=== PATIENT | female | born 1965 | race African-American/Black ===

== ENCOUNTER 2016-07-28 17:16 | Inpatient (IN) | payer SELFPAY ==
[2016-07-28] MEDS ORDERED: DUONEB 0.5 MG/3 MG ONE (17:40)
[2016-07-28] MEDS ORDERED: CATAPRES TAB 0.2 MG ONE (17:44)
[2016-07-28] MEDS ORDERED: DUONEB 0.5 MG/3 MG NEB ONE (17:47)
[2016-07-28] MEDS ORDERED: CATAPRES TAB 0.2 MG PO ONE (17:55)
--- NOTE | 2016-07-28 18:00 | DR.SOBA ---
HPI - Time Seen Time seen: 18:00 - Primary Care Physician Primary Care Physician: JANNIE IN [facility] - HPI Comment HPI Comment: PATIENT STOP TAKING MED FOR HYPERTENSION AND LASIX FOR SEVERAL MONTHS. SHE HAS PROGRESSIVELY BECOME SOB, WEAK AND SWOLLEN. NO FEVER. TODAY, SHE COULD NOT BREATH. - Complaints Chief Complaint Doctors Comments: INCREASING SOB AND LOWER EXTREMITY EDEMA TIMES 2 DAYS. Chief Complaint:: PT C/O SOB AND SWELLING OF HER EXT,,,,, FOR 2 DAYS AND PT THOUGHT IT WOULD GO AWAY AND I AM WEAK AND I GO TO SLEEP EASILY.. Self Treatment fo Chief Complaint: PT HAS A NON-PRODUCTIVE COUGH - Reviewed Nurses Notes Reviewed: Yes - Source History Provided: Patient - Mode of Arrival Mode of Arrival: Ambulatory - Timing Onset of Chief Complaint: 07/25/16 - Duration Duration: Days - Context Onset:: At Rest PE Risk Factors:: None History of:: CHF Currently on:: Neither Prehospital Care:: None - Modifying Factors Worsens:: Exertion Improves:: Nothing - Associated Signs and Symptoms Associated Signs and Symptoms: Wheeze, Cough, Chest Pain, Leg Swelling - If Chest Pain Quality: Pleuritic, Other (TIGHTNESS) Location: Right Lower Chest, Left Lower Chest - If Cough Cough: Productive, Yellow PMH - PMH Past Medical History: No Past Surgical History: No - Family History History of Family Medical Conditions: No - Social History Does patient currently use any type of tobacco product: Yes Have you used tobacco products in the last 12 months: Yes Type of Tobacco Use: Cigarettes How many years tobacco product used: 1 Does any household member use tobacco: No Alcohol Use: None Do you use any recreational Drugs:: No Lives With: Family Lives Where: Home - infectious screening In the last 2 months have you had wt loss of >10#?: NO Have you had fever, night sweats or hemotysis?: No Have you traveled outside the country in the last 6 months?: No Isolation: Standard ROS - Review of Systems Constitutional: Weakness, Fatigue. negative: Chills, Fever, Loss of Appetite Eyes: No Symptoms Reported. negative: Eye Pain, Discharge ENTM: Nose Congestion. negative: Ear Pain, Nose Discharge, Throat Pain Respiratoy: Productive Cough, Short of Breath, Wheezing. negative: Hemoptysis Cardiovascular: Chest Pain, Edema, Palpitations. negative: Syncope Gastrointestinal/Abdominal: Nausea. negative: Abdominal Pain, Constipation, Diarrhea, Vomiting Genitourinary: No Symptoms Reported. negative: Dysuria, Frequency, Hematuria Neurological: Headache, Weakness. negative: Dizziness Musculoskeletal: Back Pain, Muscle Pain, Leg Integumentary: negative: Wound, Juandice Hematologic/Lymphatic: No Symptoms Reported Endocrine: No Symptoms Reported All Other Systems: Reviewed and Negative PE - Vital Signs Vitals: Temperature 97.9 F Pulse Rate 99 Respiratory Rate 22 Blood Pressure 259/158 O2 Sat by Pulse Oximetry 77 - General Limitations: No Limitations General Appearance: Alert - Head Head Exam: Normal Inspection - Eyes Eye exam: PERRL, EOMI. negative: Scleral Icterus, Conjunctival Injection - ENT ENT Exam: Normal External Ear Exam - Neck Neck Exam: Trachea Midline. negative: Tenderness, Meningismus, Lymphadenopathy - Chest Chest Inspection: Symmetric Chest Wall Rise - Respiratory Respiratory Exam: Normal Lung Sounds Bilat, Accessory Muscle Use, Prolonged Expiratory Phase, Respiratory Distress Respiratory Exam: Bilateral Wheezing, Bilateral Rhonchi, Bilateral Crackles, Upper Wheezing, Upper Rhonchi, Lower Wheezing, Lower Rhonchi, Lower Crackles - Cardiovascular Cardiovascular Exam: Regular Rate, Normal Rhythm, Normal Heart Sounds - Abdominal Exam Abdominal Exam: Normal Bowel Sounds, Soft. negative: Tenderness - Extremities Extremities Exam: Edema - Back Back Exam: Normal Inspection - Neurologic Neurological Exam: Alert, Oriented X3 - Psychiatric Psychiatric Exam: Anxious - Skin Skin Exam: Normal Color MDM - Differential Diagnosis Differential Diagnosis: Bronchitis, CHF, COPD, Hypertensive Emergency, Mycardial Infarction, Pneumonia, Pneumothorax, Pulmonary embolism, Respiratory Failure, Sinusitis, URI Differential Diagnosis Comment:: PNEUMONIA, CHF, COPD EXACERBATION Course - Treatment Treatment: SEE ORDERS. - Consultation Consultation Comments: DISCUSS PATIENT WITH DR. WILEY. HE WILL ADMIT PATIENT. - Education/Counseling Education/Counseling: Patient, Education Educated On: Diagnosis, Needs for Follow Up ROR - Labs Reviewed Laboratory Results Reviewed?: Yes Result Diagrams: 07/28/16 17:50 07/28/16 17:50 Laboratory: WBC 9.9 X10^3/uL (3.6-10.0) 07/28/16 17:50 RBC 3.54 X10^6/uL (3.5-5.4) 07/28/16 17:50 Hgb 10.1 g/dL (12.0-16.0) L 07/28/16 17:50 Hct 31.6 % (36.0-47.0) L 07/28/16 17:50 MCV 89.4 fL (80.0-100.0) 07/28/16 17:50 MCH 28.4 pg (27.0-34.0) 07/28/16 17:50 MCHC 31.8 g/dL (33.0-35.0) L 07/28/16 17:50 RDW 16.4 % (11.6-16.5) 07/28/16 17:50 Plt Count 186 X10^3/uL (150.0-450.0) 07/28/16 17:50 MPV 8.1 fL (7.4-11.0) 07/28/16 17:50 Neut % 66.8 % (42.0-75.0) 07/28/16 17:50 Lymph % 21.9 % (21.0-51.0) 07/28/16 17:50 [place] % 4.4 % (0.0-13.0) 07/28/16 17:50 Eos % 6.0 % (0.9-2.9) H 07/28/16 17:50 Baso % 0.9 % (0.2-1.0) 07/28/16 17:50 Neut # 6.6 x10^3/uL (2.2-4.8) H 07/28/16 17:50 Lymph # 2.2 X10^3/uL (1.3-2.9) 07/28/16 17:50 [place] # 0.4 x10^3/uL (0.3-0.8) 07/28/16 17:50 Eos # 0.6 x10^3/uL (0.0-0.2) H 07/28/16 17:50 Baso # 0.1 X10^3/uL (0.0-0.1) 07/28/16 17:50 Absolute Nucleated RBC 0.0 /100WBC 07/28/16 17:50 Sample Site Lr 07/28/16 18:09 ABG pH 7.350 (7.35-7.45) 07/28/16 18:09 ABG pCO2 46.0 mmHg (35.0-45.0) H 07/28/16 18:09 ABG pO2 71.0 mmHg (80.0-100.0) L 07/28/16 18:09 ABG HCO3 25.4 mmol/L (22-26) 07/28/16 18:09 ABG O2 Saturation 93.0 % (90-100) 07/28/16 18:09 ABG Base Excess -0.6 mmol/L (-2.0-2.0) 07/28/16 18:09 Kemal Test Pos 07/28/16 18:09 A-a Gradient 228.0 mmHg 07/28/16 18:09 FiO2 50.000 07/28/16 18:09 Blood Gas Comments Pt stephanie well. cdn 07/28/16 18:09 Sodium 143 mmol/L (136-145) 07/28/16 17:50 Corrected Sodium TNP 07/28/16 17:50 Potassium 4.0 mmol/L (3.5-5.1) 07/28/16 17:50 Chloride 108 mmol/L (98-107) H 07/28/16 17:50 Carbon Dioxide 27.2 mmol/L (21-32) 07/28/16 17:50 BUN 38 mg/dL (7-18) H 07/28/16 17:50 Creatinine 3.12 mg/dL (0.55-1.02) H 07/28/16 17:50 Est GFR (MDRD) Af Amer 20 (>60) L 07/28/16 17:50 Est GFR (MDRD) Non-Af 17 (>60) L 07/28/16 17:50 Glucose 93 mg/dL (65-99) 07/28/16 17:50 Calcium 8.9 mg/dL (8.5-10.1) 07/28/16 17:50 Corrected Calcium TNP 07/28/16 17:50 Total Bilirubin 0.50 mg/dL (0.2-1.0) 07/28/16 17:50 AST 55 Units/L (15-37) H 07/28/16 17:50 ALT 85 Units/L (12-78) H 07/28/16 17:50 Alkaline Phosphatase 82 Units/L (46-116) 07/28/16 17:50 Creatine Kinase 221 Units/L (26-192) H 07/28/16 17:50 CK-MB (CK-2) 2.8 ng/mL (0-4.0) 07/28/16 17:50 CK/CKMB % Calc 1.3 % (<4) 07/28/16 17:50 Troponin I 0.05 ng/mL (0-1.5) 07/28/16 17:50 B-Natriuretic Peptide 779 pg/mL (0-79) H* 07/28/16 17:50 Total Protein 7.5 g/dL (6.4-8.2) 07/28/16 17:50 Albumin 3.4 g/dL (3.4-5.0) 07/28/16 17:50 Globulin 4.1 g/dL (2.5-4.5) 07/28/16 17:50 Albumin/Globulin Ratio 0.8 Ratio (1.1-2.1) L 07/28/16 17:50 - XRAY XRAY Interpreted by: Radiologist XRAY Findings: REPORT DISCUSS WITH PATIENTS. - EKG Rhythm: NSR (EKG NOTED.) - Diagnosis Discharge Problem: Hypertensive crisis without congestive heart failure, Respiratory distress, Renal insufficiency - Discharge Plan Disposition: ADMITTED INPATIENT Condition: Stable - Follow ups/Referrals Follow ups/Referrals: NFD,None [Primary Care Provider] - 3 days - Instructions
[2016-07-28 18:07] LABS: BASOPHILS # (AUTO) 0.1 X10^3/uL (0.0-0.1); BASOPHILS % (AUTO) 0.9 % (0.2-1.0); EOSINOPHILS # (AUTO) 0.6 x10^3/uL (0.0-0.2); HEMATOCRIT 31.6 % (36.0-47.0); HEMOGLOBIN 10.1 g/dL (12.0-16.0); LYMPHOCYTES # (AUTO) 2.2 X10^3/uL (1.3-2.9); LYMPHOCYTES % (AUTO) 21.9 % (21.0-51.0); MEAN CORPUSCULAR HEMOGLOBIN 28.4 pg (27.0-34.0); MEAN CORPUSCULAR HGB CONC 31.8 g/dL (33.0-35.0); MEAN CORPUSCULAR VOLUME 89.4 fL (80.0-100.0); MEAN PLATELET VOLUME 8.1 fL (7.4-11.0); MONOCYTES # (AUTO) 0.4 x10^3/uL (0.3-0.8); MONOCYTES % (AUTO) 4.4 % (0.0-13.0); NEUTROPHILS # (AUTO) 6.6 x10^3/uL (2.2-4.8); NEUTROPHILS % (AUTO) 66.8 % (42.0-75.0); PLATELET COUNT 186 X10^3/uL (150.0-450.0); RED BLOOD COUNT 3.54 X10^6/uL (3.5-5.4); RED CELL DISTRIBUTION WIDTH 16.4 % (11.6-16.5); WHITE BLOOD COUNT 9.9 X10^3/uL (3.6-10.0)
[2016-07-28 18:12] LABS: ABG ALLEN TEST POS; ABG BASE EXCESS -0.6 mmol/L (-2.0-2.0); ABG HCO3 25.4 mmol/L (22-26)
[2016-07-28 18:20] LABS: BLOOD UREA NITROGEN 38 mg/dL (7-18); CALCIUM 8.9 mg/dL (8.5-10.1); CARBON DIOXIDE 27.2 mmol/L (21-32); CHLORIDE 108 mmol/L (98-107); CREATININE 3.12 mg/dL (0.55-1.02); GLUCOSE 93 mg/dL (65-99); SODIUM 143 mmol/L (136-145); TROPONIN I 0.05 ng/mL (0-1.5); eGFR BLACK RACES 20 (>60); eGFR NON BLACK RACES 17 (>60)
--- NOTE | 2016-07-28 18:20 | RAD ---
HISTORY: Shortness of breath Study: Chest one view Comparison: None available Findings: The heart is markedly enlarged. The janis are prominent and indistinct and the interstitium is promin ent. This is most consistent with congestive heart failure in the form of interstitial edema. No def inite alveolar edema, alveolar infiltrates, or pleural effusions are identified. Considering the con figuration of the heart a pericardial effusion could not be excluded. The bony thorax is unremarkabl e. IMPRESSION: Cardiomegaly with congestive heart failure The configuration of the heart suggests at least the possibility of a pericardial effusion. Reported By:
[2016-07-28 18:25] LABS: ALANINE AMINOTRANSFERASE 85 Units/L (12-78); ALBUMIN 3.4 g/dL (3.4-5.0); ALKALINE PHOSPHATASE 82 Units/L (46-116); ASPARTATE AMINO TRANSFERASE 55 Units/L (15-37); CKMB % 1.3 % (<4); CREATINE KINASE 221 Units/L (26-192); CREATINE KINASE MB 2.8 ng/mL (0-4.0); TOTAL PROTEIN 7.5 g/dL (6.4-8.2)
[2016-07-28] MEDS ORDERED: LASIX IVP ONE ×2 (18:27→18:31)
[2016-07-28 18:41] LABS: B-TYPE NATRIURETIC PEPTIDE 779 pg/mL (0-79)
[2016-07-28] MEDS ORDERED: NORMODYNE INJ 20 MG VIAL IVP ONE (19:11)
[2016-07-28] MEDS ORDERED: NS 250 ML IV 250 ML IV ONE (19:19)
[2016-07-28] MEDS ORDERED: NORMODYNE INJ 100 MG VIAL ONE ×2 (19:19→19:21)
[2016-07-28] MEDS ORDERED: NORMODYNE INJ 20 MG VIAL ONE (19:19)
[2016-07-28] MEDS: NORMODYNE INJ 100 MG VIAL 250 MG in NS 250 ML IV 200 ML IV PRN (19:31)
[2016-07-28] MEDS: DUONEB 0.5 MG/3 MG NEB SCH (21:29)
[2016-07-29 00:09] LABS: CKMB % 1.4 % (<4); CREATINE KINASE MB 2.4 ng/mL (0-4.0); TROPONIN I 0.05 ng/mL (0-1.5)
[2016-07-29 00:35] VITALS: BMI 32.1
[2016-07-29] MEDS ORDERED: PREVNAR 13 IM ONE ×2 (00:35→06:13)
[2016-07-29] MEDS: DUONEB 0.5 MG/3 MG NEB SCH ×6 (01:16→20:55)
[2016-07-29] MEDS: NORMODYNE INJ 100 MG VIAL 250 MG in NS 250 ML IV 200 ML IV PRN (02:21)
[2016-07-29 05:10] LABS: BASOPHILS # (AUTO) 0.1 X10^3/uL (0.0-0.1); BASOPHILS % (AUTO) 0.9 % (0.2-1.0); EOSINOPHILS # (AUTO) 0.4 x10^3/uL (0.0-0.2); EOSINOPHILS % (AUTO) 4.3 % (0.9-2.9); HEMATOCRIT 26.5 % (36.0-47.0); HEMOGLOBIN 8.6 g/dL (12.0-16.0); LYMPHOCYTES # (AUTO) 1.8 X10^3/uL (1.3-2.9); LYMPHOCYTES % (AUTO) 21.5 % (21.0-51.0); MEAN CORPUSCULAR HGB CONC 32.3 g/dL (33.0-35.0); MEAN CORPUSCULAR VOLUME 89.9 fL (80.0-100.0); MEAN PLATELET VOLUME 8.4 fL (7.4-11.0); MONOCYTES # (AUTO) 0.5 x10^3/uL (0.3-0.8); MONOCYTES % (AUTO) 6.5 % (0.0-13.0); NEUTROPHILS # (AUTO) 5.6 x10^3/uL (2.2-4.8); NEUTROPHILS % (AUTO) 66.8 % (42.0-75.0); PLATELET COUNT 161 X10^3/uL (150.0-450.0); RED BLOOD COUNT 2.95 X10^6/uL (3.5-5.4); RED CELL DISTRIBUTION WIDTH 16.6 % (11.6-16.5); WHITE BLOOD COUNT 8.4 X10^3/uL (3.6-10.0)
[2016-07-29 05:18] LABS: ALANINE AMINOTRANSFERASE 65 Units/L (12-78); ALBUMIN 2.8 g/dL (3.4-5.0); ALKALINE PHOSPHATASE 65 Units/L (46-116); ASPARTATE AMINO TRANSFERASE 31 Units/L (15-37); BLOOD UREA NITROGEN 36 mg/dL (7-18); CALCIUM 8.4 mg/dL (8.5-10.1); CARBON DIOXIDE 29.1 mmol/L (21-32); CHLORIDE 109 mmol/L (98-107); COR CA(FOR HYPOALB) 9.4 mg/dL (8.5-10.1); CREATININE 3.33 mg/dL (0.55-1.02); GLUCOSE 83 mg/dL (65-99); SODIUM 144 mmol/L (136-145); TOTAL PROTEIN 6.3 g/dL (6.4-8.2); eGFR BLACK RACES 19 (>60); eGFR NON BLACK RACES 16 (>60)
[2016-07-29 05:34] LABS: CKMB % 1.8 % (<4); CREATINE KINASE MB 2.6 ng/mL (0-4.0); TROPONIN I 0.04 ng/mL (0-1.5)
[2016-07-29] MEDS: LASIX IVP SCH (08:45)
[2016-07-29] MEDS: ZESTRIL TAB 40 MG PO SCH (08:45)
[2016-07-29] MEDS: APRESOLINE TAB 25 MG PO SCH ×2 (13:39→21:16)
[2016-07-29] MEDS: CATAPRES TAB 0.1 MG PO SCH ×2 (13:39→21:16)
[2016-07-29] MEDS: COREG TAB 12.5 MG PO SCH ×2 (13:39→21:16)
[2016-07-29] MEDS ORDERED: NORVASC TAB 5 MG PO SCH (14:00)
[2016-07-29] MEDS ORDERED: KENALOG CREAM TOP PRN (22:12)
[2016-07-29] MEDS ORDERED: NORVASC TAB 5 MG PO ONE (22:14)
[2016-07-29] MEDS ORDERED: CATAPRES TAB 0.1 MG PO ONE (22:16)
[2016-07-30] MEDS: DUONEB 0.5 MG/3 MG NEB SCH ×6 (00:21→21:15)
[2016-07-30 05:16] LABS: BASOPHILS # (AUTO) 0.1 X10^3/uL (0.0-0.1); BASOPHILS % (AUTO) 0.6 % (0.2-1.0); EOSINOPHILS # (AUTO) 0.6 x10^3/uL (0.0-0.2); EOSINOPHILS % (AUTO) 6.4 % (0.9-2.9); HEMATOCRIT 29.5 % (36.0-47.0); HEMOGLOBIN 9.5 g/dL (12.0-16.0); LYMPHOCYTES # (AUTO) 1.3 X10^3/uL (1.3-2.9); LYMPHOCYTES % (AUTO) 13.9 % (21.0-51.0); MEAN CORPUSCULAR HEMOGLOBIN 28.9 pg (27.0-34.0); MEAN CORPUSCULAR HGB CONC 32.3 g/dL (33.0-35.0); MEAN CORPUSCULAR VOLUME 89.5 fL (80.0-100.0); MEAN PLATELET VOLUME 8.4 fL (7.4-11.0); MONOCYTES # (AUTO) 0.6 x10^3/uL (0.3-0.8); MONOCYTES % (AUTO) 6.3 % (0.0-13.0); NEUTROPHILS # (AUTO) 6.9 x10^3/uL (2.2-4.8); NEUTROPHILS % (AUTO) 72.8 % (42.0-75.0); PLATELET COUNT 174 X10^3/uL (150.0-450.0); RED CELL DISTRIBUTION WIDTH 16.6 % (11.6-16.5); WHITE BLOOD COUNT 9.4 X10^3/uL (3.6-10.0)
[2016-07-30 05:26] LABS: ALANINE AMINOTRANSFERASE 50 Units/L (12-78); ALBUMIN 2.7 g/dL (3.4-5.0); ALKALINE PHOSPHATASE 66 Units/L (46-116); ASPARTATE AMINO TRANSFERASE 16 Units/L (15-37); BLOOD UREA NITROGEN 40 mg/dL (7-18); CALCIUM 8.4 mg/dL (8.5-10.1); CARBON DIOXIDE 28.1 mmol/L (21-32); CHLORIDE 109 mmol/L (98-107); COR CA(FOR HYPOALB) 9.4 mg/dL (8.5-10.1); CREATININE 3.24 mg/dL (0.55-1.02); GLUCOSE 98 mg/dL (65-99); SODIUM 144 mmol/L (136-145); TOTAL PROTEIN 6.4 g/dL (6.4-8.2); eGFR BLACK RACES 19 (>60); eGFR NON BLACK RACES 16 (>60)
--- NOTE | 2016-07-30 07:36 | RAD ---
HISTORY: Follow up congestive heart failure Study: Chest one view Comparison: July 28, 2016 Findings: The heart is enlarged. Mild pulmonary venous congestion is present. No definite residual interstitia l edema is identified. No alveolar infiltrates or alveolar edema is identified. No definite pleural effusions are present. The bony thorax is unremarkable. IMPRESSION: Cardiomegaly with improving congestive heart failure Reported By:
[2016-07-30] MEDS: APRESOLINE TAB 25 MG PO SCH ×2 (08:23→21:06)
[2016-07-30] MEDS: NORVASC TAB 10 MG PO SCH (08:23)
[2016-07-30] MEDS: CATAPRES TAB 0.2 MG PO SCH ×2 (08:23→21:06)
[2016-07-30] MEDS: COREG TAB 12.5 MG PO SCH ×2 (08:23→21:06)
[2016-07-30] MEDS: LASIX IVP SCH (08:24)
[2016-07-30] MEDS: ZESTRIL TAB 40 MG PO SCH (08:25)
[2016-07-31] MEDS: DUONEB 0.5 MG/3 MG NEB SCH ×6 (00:29→21:05)
[2016-07-31 05:49] LABS: ALANINE AMINOTRANSFERASE 37 Units/L (12-78); ALBUMIN 2.6 g/dL (3.4-5.0); ALKALINE PHOSPHATASE 61 Units/L (46-116); ASPARTATE AMINO TRANSFERASE 12 Units/L (15-37); BLOOD UREA NITROGEN 41 mg/dL (7-18); CALCIUM 8.9 mg/dL (8.5-10.1); CARBON DIOXIDE 26.7 mmol/L (21-32); CHLORIDE 109 mmol/L (98-107); CREATININE 3.27 mg/dL (0.55-1.02); GLUCOSE 96 mg/dL (65-99); SODIUM 144 mmol/L (136-145); TOTAL PROTEIN 6.2 g/dL (6.4-8.2); eGFR BLACK RACES 19 (>60); eGFR NON BLACK RACES 16 (>60)
[2016-07-31 05:53] LABS: BASOPHILS # (AUTO) 0.1 X10^3/uL (0.0-0.1); BASOPHILS % (AUTO) 0.8 % (0.2-1.0); EOSINOPHILS # (AUTO) 0.5 x10^3/uL (0.0-0.2); EOSINOPHILS % (AUTO) 6.4 % (0.9-2.9); HEMATOCRIT 28.5 % (36.0-47.0); HEMOGLOBIN 9.3 g/dL (12.0-16.0); LYMPHOCYTES # (AUTO) 1.3 X10^3/uL (1.3-2.9); LYMPHOCYTES % (AUTO) 15.3 % (21.0-51.0); MEAN CORPUSCULAR HEMOGLOBIN 29.1 pg (27.0-34.0); MEAN CORPUSCULAR HGB CONC 32.5 g/dL (33.0-35.0); MEAN CORPUSCULAR VOLUME 89.5 fL (80.0-100.0); MEAN PLATELET VOLUME 8.2 fL (7.4-11.0); MONOCYTES # (AUTO) 0.5 x10^3/uL (0.3-0.8); MONOCYTES % (AUTO) 6.6 % (0.0-13.0); NEUTROPHILS # (AUTO) 5.8 x10^3/uL (2.2-4.8); NEUTROPHILS % (AUTO) 70.9 % (42.0-75.0); PLATELET COUNT 183 X10^3/uL (150.0-450.0); RED BLOOD COUNT 3.19 X10^6/uL (3.5-5.4); RED CELL DISTRIBUTION WIDTH 16.3 % (11.6-16.5); WHITE BLOOD COUNT 8.2 X10^3/uL (3.6-10.0)
--- NOTE | 2016-07-31 06:04 | RAD ---
HISTORY: 51-year-old female, followup examination for CHF, patient with shortness of breath. Study: Single frontal view of the chest. Comparison: Chest radiograph July 30, 2016. Findings: The trachea is midline. The cardiac silhouette is stably enlarged. Improved pattern of aeration wi th reduced pattern of pulmonary edema without focal consolidation, effusion or pneumothorax. The [place] thorax is unremarkable. IMPRESSION: 1. Improved aeration with reduced pulmonary edema. Reported By:
[2016-07-31] MEDS: NORVASC TAB 10 MG PO SCH (08:24)
[2016-07-31] MEDS: COREG TAB 12.5 MG PO SCH ×2 (08:24→20:56)
[2016-07-31] MEDS: APRESOLINE TAB 25 MG PO SCH ×2 (08:24→20:56)
[2016-07-31] MEDS: ZESTRIL TAB 40 MG PO SCH (08:24)
[2016-07-31] MEDS: CATAPRES TAB 0.2 MG PO SCH ×2 (08:25→20:56)
[2016-07-31] MEDS: LASIX IVP SCH (08:25)
--- NOTE | 2016-07-31 13:59 | PCM.PROG ---
Progress Note - Progress Note for Day of Date: 07/31/16 - Subjective Subjective: CONTINUED COUGH AND SOB, PT HAS IMPROVING CXR, PLAN TO CONTINUE BP CONTROL, CARDIAC MONITORING, REPEAT AM LABS AND CXR - Past Medical Family Social History Past Med/Fam/Surg Hx: No changes since H&P Allergies: Allergies Diphenhydramine [From Benadryl] Allergy (Verified 07/28/16 17:28) - Review of Systems ROS: No change since H&P - Vital Signs and I&O's Vital Signs: Temperature 97 F Pulse Rate [Right Radial] 61 Pulse Rate [Apical] 65 Pulse Rate 67 Respiratory Rate 18 Blood Pressure [Right Arm] 150/83 O2 Sat by Pulse Oximetry 91 Intake and Output: Intake & Output 07/29/16 07/30/16 07/31/16 08/01/16 11:59 11:59 11:59 11:59 Intake Total 769 1727 1900 Output Total 1700 Balance 769 1727 200 - Physical Exam Oriented: Normal Eyes: Normal Ear: Normal Nose: Normal Throat: Normal Respiratory: Diminished, Wheezes Cardiovascular: Normal, Edema (+1 EDEMA) : Normal Auscultation: Bowel Sounds: Normal Tenderness: Normal Skin: Normal Musculoskeletal: Normal Mood Description: Calm Speech Pattern: Clear, Appropriate - Laboratory and Diagnostics Result Diagrams: 07/31/16 05:10 07/31/16 05:10 Labs: Laboratory WBC 8.2 X10^3/uL (3.6-10.0) 07/31/16 05:10 RBC 3.19 X10^6/uL (3.5-5.4) L 07/31/16 05:10 Hgb 9.3 g/dL (12.0-16.0) L 07/31/16 05:10 Hct 28.5 % (36.0-47.0) L 07/31/16 05:10 MCV 89.5 fL (80.0-100.0) 07/31/16 05:10 MCH 29.1 pg (27.0-34.0) 07/31/16 05:10 MCHC 32.5 g/dL (33.0-35.0) L 07/31/16 05:10 RDW 16.3 % (11.6-16.5) 07/31/16 05:10 Plt Count 183 X10^3/uL (150.0-450.0) 07/31/16 05:10 MPV 8.2 fL (7.4-11.0) 07/31/16 05:10 Neut % 70.9 % (42.0-75.0) 07/31/16 05:10 Lymph % 15.3 % (21.0-51.0) L 07/31/16 05:10 [place] % 6.6 % (0.0-13.0) 07/31/16 05:10 Eos % 6.4 % (0.9-2.9) H 07/31/16 05:10 Baso % 0.8 % (0.2-1.0) 07/31/16 05:10 Neut # 5.8 x10^3/uL (2.2-4.8) H 07/31/16 05:10 Lymph # 1.3 X10^3/uL (1.3-2.9) 07/31/16 05:10 [place] # 0.5 x10^3/uL (0.3-0.8) 07/31/16 05:10 Eos # 0.5 x10^3/uL (0.0-0.2) H 07/31/16 05:10 Baso # 0.1 X10^3/uL (0.0-0.1) 07/31/16 05:10 Absolute Nucleated RBC 0.0 /100WBC 07/31/16 05:10 INR Target Range - 07/29/16 05:00 INR 0.99 (0.8-1.3) 07/29/16 05:00 PTT 27.2 SECONDS (22.9-36.5) 07/29/16 05:00 PTT Comment - 07/29/16 05:00 Sample Site Lr 07/28/16 18:09 ABG pH 7.350 (7.35-7.45) 07/28/16 18:09 ABG pCO2 46.0 mmHg (35.0-45.0) H 07/28/16 18:09 ABG pO2 71.0 mmHg (80.0-100.0) L 07/28/16 18:09 ABG HCO3 25.4 mmol/L (22-26) 07/28/16 18:09 ABG O2 Saturation 93.0 % (90-100) 07/28/16 18:09 ABG Base Excess -0.6 mmol/L (-2.0-2.0) 07/28/16 18:09 Kemal Test Pos 07/28/16 18:09 A-a Gradient 228.0 mmHg 07/28/16 18:09 FiO2 50.000 07/28/16 18:09 Blood Gas Comments Pt stephanie well. cdn 07/28/16 18:09 Sodium 144 mmol/L (136-145) 07/31/16 05:10 Corrected Sodium TNP 07/31/16 05:10 Potassium 4.0 mmol/L (3.5-5.1) 07/31/16 05:10 Chloride 109 mmol/L (98-107) H 07/31/16 05:10 Carbon Dioxide 26.7 mmol/L (21-32) 07/31/16 05:10 BUN 41 mg/dL (7-18) H 07/31/16 05:10 Creatinine 3.27 mg/dL (0.55-1.02) H 07/31/16 05:10 Est GFR (MDRD) Af Amer 19 (>60) L 07/31/16 05:10 Est GFR (MDRD) Non-Af 16 (>60) L 07/31/16 05:10 Glucose 96 mg/dL (65-99) 07/31/16 05:10 Calcium 8.9 mg/dL (8.5-10.1) 07/31/16 05:10 Corrected Calcium 10.0 mg/dL (8.5-10.1) 07/31/16 05:10 Total Bilirubin 0.20 mg/dL (0.2-1.0) 07/31/16 05:10 AST 12 Units/L (15-37) L 07/31/16 05:10 ALT 37 Units/L (12-78) 07/31/16 05:10 Alkaline Phosphatase 61 Units/L (46-116) 07/31/16 05:10 Creatine Kinase 143 Units/L (26-192) 07/29/16 05:00 CK-MB (CK-2) 2.6 ng/mL (0-4.0) 07/29/16 05:00 CK/CKMB % Calc 1.8 % (<4) 07/29/16 05:00 Troponin I 0.04 ng/mL (0-1.5) 07/29/16 05:00 B-Natriuretic Peptide 779 pg/mL (0-79) H* 07/28/16 17:50 Total Protein 6.2 g/dL (6.4-8.2) L 07/31/16 05:10 Albumin 2.6 g/dL (3.4-5.0) L 07/31/16 05:10 Globulin 3.6 g/dL (2.5-4.5) 07/31/16 05:10 Albumin/Globulin Ratio 0.7 Ratio (1.1-2.1) L 07/31/16 05:10 - Plan (1) Hypertensive crisis without congestive heart failure Status: Acute Plan: CONTINUE ANTI-HYPERTENSIVES, BP CONTROL AND CARDIAC MONITORING. AM LABS AND CXR. STRICT I & O'S (2) Renal insufficiency Status: Acute Plan: ENCOURAGE ORAL HYDRATION, REPEAT AM CMP (3) Respiratory distress Status: Acute Plan: IMPROVING, REPEAT AM ABG. CONTINUE SUPPLEMENTAL O2
[2016-07-31 14:25] LABS: FREE T4 (FREE THYROXINE) 1.08 ng/dL (0.76-1.46); TSH (3RD GENERATION) 1.053 uIU/mL (0.358-3.74)
[2016-08-01] MEDS: DUONEB 0.5 MG/3 MG NEB SCH ×7 (01:14→20:59)
[2016-08-01 04:44] LABS: ABG BASE EXCESS 4.3 mmol/L (-2.0-2.0); ABG HCO3 29.2 mmol/L (22-26)
[2016-08-01 04:45] LABS: ABG ALLEN TEST POS
[2016-08-01 05:44] LABS: BASOPHILS % (AUTO) 0.8 % (0.2-1.0); EOSINOPHILS # (AUTO) 0.5 x10^3/uL (0.0-0.2); EOSINOPHILS % (AUTO) 7.4 % (0.9-2.9); HEMATOCRIT 28.7 % (36.0-47.0); HEMOGLOBIN 9.4 g/dL (12.0-16.0); LYMPHOCYTES % (AUTO) 15.7 % (21.0-51.0); MEAN CORPUSCULAR HGB CONC 32.7 g/dL (33.0-35.0); MEAN CORPUSCULAR VOLUME 88.6 fL (80.0-100.0); MONOCYTES # (AUTO) 0.5 x10^3/uL (0.3-0.8); MONOCYTES % (AUTO) 8.3 % (0.0-13.0); NEUTROPHILS # (AUTO) 4.3 x10^3/uL (2.2-4.8); NEUTROPHILS % (AUTO) 67.8 % (42.0-75.0); PLATELET COUNT 186 X10^3/uL (150.0-450.0); RED BLOOD COUNT 3.24 X10^6/uL (3.5-5.4); RED CELL DISTRIBUTION WIDTH 16.5 % (11.6-16.5); WHITE BLOOD COUNT 6.3 X10^3/uL (3.6-10.0)
[2016-08-01 05:52] LABS: ALANINE AMINOTRANSFERASE 30 Units/L (12-78); ALBUMIN 2.6 g/dL (3.4-5.0); ALKALINE PHOSPHATASE 60 Units/L (46-116); ASPARTATE AMINO TRANSFERASE 9 Units/L (15-37); BLOOD UREA NITROGEN 37 mg/dL (7-18); CALCIUM 8.6 mg/dL (8.5-10.1); CARBON DIOXIDE 26.5 mmol/L (21-32); CHLORIDE 108 mmol/L (98-107); COR CA(FOR HYPOALB) 9.7 mg/dL (8.5-10.1); CREATININE 3.14 mg/dL (0.55-1.02); GLUCOSE 96 mg/dL (65-99); SODIUM 144 mmol/L (136-145); TOTAL PROTEIN 6.4 g/dL (6.4-8.2); eGFR BLACK RACES 20 (>60); eGFR NON BLACK RACES 17 (>60)
[2016-08-01 06:11] LABS: B-TYPE NATRIURETIC PEPTIDE 111 pg/mL (0-79)
[2016-08-01] MEDS: COREG TAB 12.5 MG PO SCH ×2 (09:01→20:03)
[2016-08-01] MEDS: APRESOLINE TAB 25 MG PO SCH ×2 (09:02→20:03)
[2016-08-01] MEDS: CATAPRES TAB 0.2 MG PO SCH ×2 (09:02→20:03)
[2016-08-01] MEDS: ZESTRIL TAB 40 MG PO SCH (09:02)
[2016-08-01] MEDS: LASIX IVP SCH (09:02)
[2016-08-01] MEDS: NORVASC TAB 10 MG PO SCH (09:02)
--- NOTE | 2016-08-01 09:07 | RAD ---
HISTORY: CHF, respiratory distress. Study: Portable chest. Comparison: Chest x-ray dated July 31, 2016. Findings: The trachea is midline. The cardiac silhouette is enlarged but unchanged. Improving lung aeration without obvious focal consolidation, pleural effusion, or pneumothorax. The osseous structures are unchanged. IMPRESSION: Improved lung aeration. Reported By:
--- NOTE | 2016-08-01 16:32 | US ---
HISTORY: Renal insufficiency Study: Renal ultrasound Comparison: December 20, 2009 Technique: Multiple pastor scale and color flow Doppler images of the kidneys were obtained. The cristofer on of the urinary bladder was evaluated as well. Findings: The right renal cortex appears echogenic , suggesting chronic medical renal disease. The right kidne y is small in size as well , measuring 8.0 cm in length by 3.9 cm in height by 4.4 cm in width No fo kirby mass, hydronephrosis, or stones identified. The left renal cortex appears mildly echogenic as well , also suggesting chronic medical renal disea se . The left kidney is also mildly small in size, measuring 8.1 cm in length by 4.5 cm in height 4. 5 cm in width . No focal mass, hydronephrosis, or stone can be seen within the left kidney. The urinary bladder is grossly unremarkable. IMPRESSION: 1. Findings suggesting chronic medical renal disease as above Reported By:
[2016-08-01] MEDS ORDERED: NS 1000 ML 1,000 ML IV ONE (17:00)
[2016-08-01] MEDS ORDERED: NS 1000 ML 1,000 ML IV SCH (17:00)
--- NOTE | 2016-08-01 17:45 | PCM.PROG ---
Progress Note - Progress Note for Day of Date: 08/01/16 - Subjective Subjective: CONTINUED COUGH AND SOB, PT HAS IMPROVING CXR, PLAN TO CONTINUE BP CONTROL, CARDIAC MONITORING, REPEAT AM LABS AND CXR. OBTAIN A RENAL ULTRASOUND WELL PREVIOUS cmp LABS FROM [facility] [place]. eCHOCARDIOGRAM TODAY - Past Medical Family Social History Past Med/Fam/Surg Hx: No changes since H&P Allergies: Allergies Diphenhydramine [From Benadryl] Allergy (Verified 07/28/16 17:28) - Review of Systems ROS: No change since H&P - Vital Signs and I&O's Vital Signs: Temperature 98.1 F Pulse Rate [Right Radial] 89 Pulse Rate [Apical] 82 Pulse Rate 88 Respiratory Rate 18 Blood Pressure [Right Arm] 148/76 O2 Sat by Pulse Oximetry 94 Intake and Output: Intake & Output 07/30/16 07/31/16 08/01/16 08/02/16 11:59 11:59 11:59 11:59 Intake Total 1727 1900 1900 820 Output Total 1700 1200 Balance 1727 200 700 820 - Physical Exam Oriented: Normal Eyes: Normal Ear: Normal Nose: Normal Throat: Normal Respiratory: Diminished, Wheezes Cardiovascular: Normal, Edema (+1 EDEMA) : Normal Auscultation: Bowel Sounds: Normal Tenderness: Normal Skin: Normal Musculoskeletal: Normal Mood Description: Calm Speech Pattern: Clear, Appropriate - Laboratory and Diagnostics Result Diagrams: 08/01/16 05:20 08/01/16 05:20 Labs: Laboratory WBC 6.3 X10^3/uL (3.6-10.0) 08/01/16 05:20 RBC 3.24 X10^6/uL (3.5-5.4) L 08/01/16 05:20 Hgb 9.4 g/dL (12.0-16.0) L 08/01/16 05:20 Hct 28.7 % (36.0-47.0) L 08/01/16 05:20 MCV 88.6 fL (80.0-100.0) 08/01/16 05:20 MCH 29.0 pg (27.0-34.0) 08/01/16 05:20 MCHC 32.7 g/dL (33.0-35.0) L 08/01/16 05:20 RDW 16.5 % (11.6-16.5) 08/01/16 05:20 Plt Count 186 X10^3/uL (150.0-450.0) 08/01/16 05:20 MPV 8.0 fL (7.4-11.0) 08/01/16 05:20 Neut % 67.8 % (42.0-75.0) 08/01/16 05:20 Lymph % 15.7 % (21.0-51.0) L 08/01/16 05:20 [place] % 8.3 % (0.0-13.0) 08/01/16 05:20 Eos % 7.4 % (0.9-2.9) H 08/01/16 05:20 Baso % 0.8 % (0.2-1.0) 08/01/16 05:20 Neut # 4.3 x10^3/uL (2.2-4.8) 08/01/16 05:20 Lymph # 1.0 X10^3/uL (1.3-2.9) L 08/01/16 05:20 [place] # 0.5 x10^3/uL (0.3-0.8) 08/01/16 05:20 Eos # 0.5 x10^3/uL (0.0-0.2) H 08/01/16 05:20 Baso # 0.0 X10^3/uL (0.0-0.1) 08/01/16 05:20 Absolute Nucleated RBC 0.0 /100WBC 08/01/16 05:20 INR Target Range - 07/29/16 05:00 INR 0.99 (0.8-1.3) 07/29/16 05:00 PTT 27.2 SECONDS (22.9-36.5) 07/29/16 05:00 PTT Comment - 07/29/16 05:00 Sample Site Lrad 08/01/16 04:38 ABG pH 7.430 (7.35-7.45) 08/01/16 04:38 ABG pCO2 44.0 mmHg (35.0-45.0) 08/01/16 04:38 ABG pO2 63.0 mmHg (80.0-100.0) L 08/01/16 04:38 ABG HCO3 29.2 mmol/L (22-26) H 08/01/16 04:38 ABG O2 Saturation 92.0 % (90-100) 08/01/16 04:38 ABG Base Excess 4.3 mmol/L (-2.0-2.0) H 08/01/16 04:38 Kemal Test Pos 08/01/16 04:38 A-a Gradient 32.0 mmHg 08/01/16 04:38 FiO2 21.000 08/01/16 04:38 Blood Gas Comments [place] abg well-mtf 08/01/16 04:38 Sodium 144 mmol/L (136-145) 08/01/16 05:20 Corrected Sodium TNP 08/01/16 05:20 Potassium 3.6 mmol/L (3.5-5.1) 08/01/16 05:20 Chloride 108 mmol/L (98-107) H 08/01/16 05:20 Carbon Dioxide 26.5 mmol/L (21-32) 08/01/16 05:20 BUN 37 mg/dL (7-18) H 08/01/16 05:20 Creatinine 3.14 mg/dL (0.55-1.02) H 08/01/16 05:20 Est GFR (MDRD) Af Amer 20 (>60) L 08/01/16 05:20 Est GFR (MDRD) Non-Af 17 (>60) L 08/01/16 05:20 Glucose 96 mg/dL (65-99) 08/01/16 05:20 Calcium 8.6 mg/dL (8.5-10.1) 08/01/16 05:20 Corrected Calcium 9.7 mg/dL (8.5-10.1) 08/01/16 05:20 Iron 25 ug/dL (50-175) L 08/01/16 05:20 Transferrin 214 mg/dL (202-364) 08/01/16 05:20 Ferritin 28 ng/mL (8-252) 08/01/16 05:20 Total Bilirubin 0.20 mg/dL (0.2-1.0) 08/01/16 05:20 AST 9 Units/L (15-37) L 08/01/16 05:20 ALT 30 Units/L (12-78) 08/01/16 05:20 Alkaline Phosphatase 60 Units/L (46-116) 08/01/16 05:20 Creatine Kinase 143 Units/L (26-192) 07/29/16 05:00 CK-MB (CK-2) 2.6 ng/mL (0-4.0) 07/29/16 05:00 CK/CKMB % Calc 1.8 % (<4) 07/29/16 05:00 Troponin I 0.04 ng/mL (0-1.5) 07/29/16 05:00 B-Natriuretic Peptide 111 pg/mL (0-79) H 08/01/16 05:20 Total Protein 6.4 g/dL (6.4-8.2) 08/01/16 05:20 Albumin 2.6 g/dL (3.4-5.0) L 08/01/16 05:20 Globulin 3.8 g/dL (2.5-4.5) 08/01/16 05:20 Albumin/Globulin Ratio 0.7 Ratio (1.1-2.1) L 08/01/16 05:20 Vitamin B12 611 pg/mL (193-986) 08/01/16 05:20 Folate 13.4 ng/mL (>8.6) 08/01/16 05:20 Free T4 1.08 ng/dL (0.76-1.46) 07/31/16 05:10 TSH 3rd Generation 1.053 uIU/mL (0.358-3.74) 07/31/16 05:10 - Plan (1) Hypertensive crisis without congestive heart failure Status: Acute Plan: CONTINUE ANTI-HYPERTENSIVES, BP CONTROL AND CARDIAC MONITORING. AM LABS AND CXR. STRICT I & O'S (2) Renal insufficiency Status: Acute Plan: ENCOURAGE ORAL HYDRATION, REPEAT AM CMP (3) Respiratory distress Status: Acute Plan: IMPROVING, REPEAT AM ABG. CONTINUE SUPPLEMENTAL O2
[2016-08-02] MEDS: DUONEB 0.5 MG/3 MG NEB SCH ×3 (01:18→09:05)
[2016-08-02 07:36] LABS: BASOPHILS # (AUTO) 0.1 X10^3/uL (0.0-0.1); EOSINOPHILS # (AUTO) 0.4 x10^3/uL (0.0-0.2); HEMATOCRIT 29.3 % (36.0-47.0); HEMOGLOBIN 9.6 g/dL (12.0-16.0); LYMPHOCYTES # (AUTO) 0.9 X10^3/uL (1.3-2.9); LYMPHOCYTES % (AUTO) 16.1 % (21.0-51.0); MEAN CORPUSCULAR HGB CONC 32.7 g/dL (33.0-35.0); MEAN CORPUSCULAR VOLUME 88.7 fL (80.0-100.0); MEAN PLATELET VOLUME 7.8 fL (7.4-11.0); MONOCYTES # (AUTO) 0.6 x10^3/uL (0.3-0.8); MONOCYTES % (AUTO) 10.5 % (0.0-13.0); NEUTROPHILS # (AUTO) 3.4 x10^3/uL (2.2-4.8); NEUTROPHILS % (AUTO) 64.4 % (42.0-75.0); PLATELET COUNT 185 X10^3/uL (150.0-450.0); RED CELL DISTRIBUTION WIDTH 16.2 % (11.6-16.5); WHITE BLOOD COUNT 5.4 X10^3/uL (3.6-10.0)
[2016-08-02 07:43] LABS: ALANINE AMINOTRANSFERASE 18 Units/L (12-78); ALBUMIN 2.6 g/dL (3.4-5.0); ALKALINE PHOSPHATASE 59 Units/L (46-116); ASPARTATE AMINO TRANSFERASE 11 Units/L (15-37); BLOOD UREA NITROGEN 39 mg/dL (7-18); CALCIUM 8.7 mg/dL (8.5-10.1); CARBON DIOXIDE 28.6 mmol/L (21-32); CHLORIDE 109 mmol/L (98-107); COR CA(FOR HYPOALB) 9.8 mg/dL (8.5-10.1); GLUCOSE 84 mg/dL (65-99); SODIUM 144 mmol/L (136-145); TOTAL PROTEIN 6.4 g/dL (6.4-8.2); eGFR BLACK RACES 20 (>60); eGFR NON BLACK RACES 17 (>60)
[2016-08-02] MEDS: COREG TAB 12.5 MG PO SCH (08:02)
[2016-08-02] MEDS: ZESTRIL TAB 40 MG PO SCH (08:02)
[2016-08-02] MEDS: CATAPRES TAB 0.2 MG PO SCH (08:03)
[2016-08-02] MEDS: LASIX IVP SCH (08:03)
[2016-08-02] MEDS: APRESOLINE TAB 25 MG PO SCH (08:03)
[2016-08-02] MEDS: NORVASC TAB 10 MG PO SCH (08:03)
[2016-08-02 10:47] VITALS: BP 189/96
== END 2016-08-02 11:15 | disposition home or self-care (01) | DRG 304 ==
LOC: ER 17:46 → ICU 20:47
PROVIDERS: ADMIT Internal Medicine; ATTEND Internal Medicine
PROC: 3E0234Z Introduction of Serum, Toxoid and Vaccine into Muscle, Percutaneous Approach (ICD-10-PCS; principal; 2016-07-29)
DX: I16.0 Hypertensive urgency (principal); I50.31 Acute diastolic (congestive) heart failure; J81.0 Acute pulmonary edema; N17.8 Other acute kidney failure; R06.00 Dyspnea, unspecified; R06.02 Shortness of breath; R53.1 Weakness; R94.31 Abnormal electrocardiogram [ECG] [EKG]; R94.4 Abnormal results of kidney function studies; I11.0 Hypertensive heart disease with heart failure; R68.89 Other general symptoms and signs; Z23 Encounter for immunization
CPT/HCPCS: 36415; 36600; 71010; 76770; 80053; 82550; 82553; 82607; 82728; 82746; 82803; 83540; 83880; 84439; 84443; 84466; 84484; 85025; 85610; 85730; 93005; 93010; 93041; 94640; 96365; 96367; 96374; 96375; 99221; 99231; 99284; 99285; A4216; A4222; 90670; J1940; J3490; J7620

== ENCOUNTER 2017-06-08 13:30 | Emergency (ER) | payer SELFPAY ==
[2017-06-08 13:35] VITALS: BMI 34.2
[2017-06-08] MEDS ORDERED: CATAPRES TAB 0.2 MG ONE (13:41)
[2017-06-08] MEDS ORDERED: CATAPRES TAB 0.2 MG PO ONE (13:42)
--- NOTE | 2017-06-08 13:46 | DR.HTN ---
HPI - Time Seen Time seen: 13:35 - Primary Care Physician Primary Care Physician: MONSE - HPI Comment HPI Comment: long standing HTN, took clonidine 0.1 mg PO approx 45min ago but went right back to work. BP 245/124 on arrival - Complaints Chief Complaint:: PT C/O HIGH BLOOD PRESSURE. PT STATES HER BLOOD PRESSURE HAS BEEN HIGH AND SHE IS WORRIED ABOUT IT. PT STATES SHE JUST TOOK HER CLONIDINE AROUND 1230. - Reviewed Nurses Notes Reviewed: Yes - Source History Provided: Patient - Mode of Arrival Mode of Arrival: Ambulatory - Timing Onset of Chief Complaint: 06/08/17 - Severity Severity: Severe - Context Treatment of HTN Prior to Arrival: Taking meds as prescribed - Associated Signs and Symptoms HTN Associated Signs and Symptoms: None PMH - PMH Past Medical History: Yes Past Medical History: Hypertension Past Surgical History: Yes Surgical History: Angioplasty/Stents Past Surgical History Comment: HEART CATH, TUBALIGATION - Family History History of Family Medical Conditions: Yes Family Medical History: Diabetes Mellitus, CT, Hypertension - Social History Does patient currently use any type of tobacco product: No Does any household member use tobacco: No Alcohol Use: None Do you use any recreational Drugs:: No Lives With: Family Lives Where: Home - infectious screening In the last 2 months have you had wt loss of >10#?: NO Have you had fever, night sweats or hemotysis?: No Have you traveled outside the country in the last 6 months?: No Isolation: Standard ROS - Review of Systems Constitutional: Fatigue Eyes: No Symptoms Reported ENTM: No Symptoms Reported Respiratoy: No Symptoms Reported Cardiovascular: No Symptoms Reported Gastrointestinal/Abdominal: No Symptoms Reported Genitourinary: No Symptoms Reported Neurological: No Symptoms Reported Musculoskeletal: No Symptoms Reported Integumentary: No Symptoms Reported Hematologic/Lymphatic: No Symptoms Reported Endocrine: No Symptoms Reported Psychiatric: No Symptoms Reported All Other Systems: Reviewed and Negative PE - Vital Signs Vitals: Temperature 98.0 F Pulse Rate 73 Respiratory Rate 20 Blood Pressure [Right Arm] 168/93 Blood Pressure 242/151 O2 Sat by Pulse Oximetry 96 - General Limitations: No Limitations General Appearance: Alert, In No Apparent Distress, Anxious, Other (mildly anxious on exam) - Head Head Exam: Normal Inspection - Eyes Eye exam: Normal Appearance Pupils: Regular, Round: Bilateral, Reactive: Bilateral - ENT ENT Exam: Normal Exam - Neck Neck Exam: Normal Inspection, Full ROM, Trachea Midline - Chest Chest Inspection: Normal Inspection - Respiratory Respiratory Exam: Normal Lung Sounds Bilat Respiratory Exam: Bilateral Clear to Auscultation - Cardiovascular Cardiovascular Exam: Regular Rate, Normal Rhythm, Normal Heart Sounds - Abdominal Exam Abdominal Exam: Normal Inspection, Normal Bowel Sounds, Soft. negative: Tenderness - Extremities Extremities Exam: Normal Inspection, Normal Capillary Refill. negative: Edema - Back Back Exam: Normal Inspection - Neurologic Neurological Exam: Alert, Oriented X3 Speech: Fluid Speech - Psychiatric Psychiatric Exam: Normal Affect, Normal Mood - Skin Skin Exam: Warm, Dry, Intact - Diagnosis Discharge Problem: HTN (hypertension) - Discharge Plan Disposition: HOME, SELF-CARE Condition: Stable - Follow ups/Referrals Follow ups/Referrals: JEREMÍAS SHEA [Primary Care Provider] - 3 days - Instructions Additional Notes - Additional Notes Additional Notes: BP down to 171/95 on d/c. Pt to take clonidine 0.1 x 2 tabs( instead of one) 3x daily and f/u reg doctor 06/11. Feels well on d/c
[2017-06-08 15:06] VITALS: BP 168/93
== END 2017-06-08 15:46 | disposition home or self-care (01) ==
LOC: ER 13:37
DX: I10 Essential (primary) hypertension (principal)
CPT/HCPCS: 99281; 99282

== ENCOUNTER 2017-06-21 11:24 | Observation (INO) | payer SELFPAY ==
--- NOTE | 2017-06-21 12:39 | DR.H&P ---
H&P - History & Physical for Day of: H&P Date: 06/21/17 - Chief Complaint Chief Complaint: elevated bp, flores, dizziness, weak, sob - Allergies Allergies/Adverse Reactions: Allergies Allergy/AdvReac Type Severity Reaction Status Date / Time diphenhydramine Allergy Verified 06/08/17 13:35 [From Benadryl] - History of Present Illness History of Present Illness: 52 BF DIRECT ADMIT FROM DR WILEY WITH CO SEVERE ELEVATED BP WITH FLORES, DIZZINESS WEAKNESS. PT NEWLY DIAGNOSED HEART MURMUR, INCREASE SOB. PT HAS CRF, DECREASE URINE OUTPT. PT HAS BEEN TAKEING CATAPRES, HYDRALAZINE. LOSARTAN, LASIX, COREG WITH CONTINUED MALIGNANT HTN. - Past Medical History Past Medical History: Hypertension, Renal Disease - Past Surgical History Surgical History: Angioplasty/Stents - Family History Family Medical History: Diabetes Mellitus, [place], Hypertension - Social History Does patient currently use any type of tobacco product: No Have you used tobacco products in the last 12 months: No Type of Tobacco Use: None Does any household member use tobacco: No Alcohol Use: None Drug Use: None - Review of Systems Constitutional: Weakness ENT: No Symptoms Reported Respiratory: Shortness of Breath, SOB with Excertion Cardiovascular: Chest Pain, Edema, Light Headedness Gastrointestinal: No Symptoms Reported Genitourinary: No Symptoms Reported Musculoskeletal: No Symptoms Reported Skin: No Symptoms Reported Neurological: Other (DIZZINESS) - Physical Exam Vital Signs: Blood Pressure [Right Arm] 168/93 Blood Pressure 168/93 Oriented: Normal Eyes: Normal Ear: Normal Nose: Normal Throat: Normal Respiratory: RLL Diminished, LLL Diminished Cardiovascular: Murmur, Edema : Normal Auscultation: Bowel Sounds: Normal Palpation: Normal Tenderness: Normal Skin: Normal Musculoskeletal: Normal Psychiatric: Anxiety Affect: Anxious Speech Pattern: Clear, Appropriate - Assessment/Plan (1) Hypertensive urgency, malignant Status: Acute Plan: ADMIT ICU CARDIAC MONITORING, SERIAL CE, EKGS. ECHO, RESP CONSULT, SUPPLEMENTAL O2. BP CONTROL, AM LIPID LEVEL. I & OS (2) Renal insufficiency Status: Acute (3) Respiratory distress Status: Acute
[2017-06-21] MEDS ORDERED: APRESOLINE INJ 20 MG VIAL IVP PRN (13:37)
[2017-06-21 14:18] VITALS: BMI 34.2
[2017-06-21 14:22] LABS: FREE T4 (FREE THYROXINE) 1.16 ng/dL (0.76-1.46); TSH (3RD GENERATION) 1.234 uIU/mL (0.358-3.74)
[2017-06-21 14:25] LABS: CKMB % 0.7 % (<4); CREATINE KINASE 137 Units/L (26-192); CREATINE KINASE MB < 1.0 ng/mL (0-4.0); TROPONIN I < 0.02 ng/mL (0-1.5)
--- NOTE | 2017-06-21 15:11 | RAD ---
HISTORY: Murmur, uncontrolled hypertension, shortness of breath Study: PA and lateral views of the chest Comparison: 08/01/2016 Findings: No infiltrate, effusion or pneumothorax identified. Cardiomegaly is noted. The soft tissues are unre markable. IMPRESSION: 1. Cardiomegaly without acute abnormality. Reported By:
[2017-06-21 18:12] LABS: BASOPHILS # (AUTO) 0.1 X10^3/uL (0.0-0.1); EOSINOPHILS # (AUTO) 0.4 x10^3/uL (0.0-0.2); EOSINOPHILS % (AUTO) 7.2 % (0.9-2.9); HEMATOCRIT 33.8 % (36.0-47.0); HEMOGLOBIN 11.1 g/dL (12.0-16.0); LYMPHOCYTES % (AUTO) 17.7 % (21.0-51.0); MEAN CORPUSCULAR HEMOGLOBIN 27.6 pg (27.0-34.0); MEAN CORPUSCULAR VOLUME 83.7 fL (80.0-100.0); MEAN PLATELET VOLUME 8.6 fL (7.4-11.0); MONOCYTES # (AUTO) 0.6 x10^3/uL (0.3-0.8); MONOCYTES % (AUTO) 10.8 % (0.0-13.0); NEUTROPHILS # (AUTO) 3.6 x10^3/uL (2.2-4.8); NEUTROPHILS % (AUTO) 63.3 % (42.0-75.0); PLATELET COUNT 170 X10^3/uL (150.0-450.0); RED BLOOD COUNT 4.03 X10^6/uL (3.5-5.4); RED CELL DISTRIBUTION WIDTH 15.5 % (11.6-16.5); WHITE BLOOD COUNT 5.7 X10^3/uL (3.6-10.0)
[2017-06-21 18:20] LABS: ALANINE AMINOTRANSFERASE 18 Units/L (12-78); ALBUMIN 3.3 g/dL (3.4-5.0); ALKALINE PHOSPHATASE 92 Units/L (46-116); ASPARTATE AMINO TRANSFERASE 15 Units/L (15-37); BLOOD UREA NITROGEN 42 mg/dL (7-18); CALCIUM 8.6 mg/dL (8.5-10.1); CARBON DIOXIDE 22.4 mmol/L (21-32); CHLORIDE 105 mmol/L (98-107); COR CA(FOR HYPOALB) 9.2 mg/dL (8.5-10.1); CREATININE 3.03 mg/dL (0.55-1.02); SODIUM 140 mmol/L (136-145); TOTAL PROTEIN 7.7 g/dL (6.4-8.2); eGFR BLACK RACES 21 (>60); eGFR NON BLACK RACES 17 (>60)
[2017-06-21 19:59] LABS: CKMB % 0.9 % (<4); CREATINE KINASE 111 Units/L (26-192); CREATINE KINASE MB < 1.0 ng/mL (0-4.0); TROPONIN I < 0.02 ng/mL (0-1.5)
[2017-06-21] MEDS ORDERED: CATAPRES TAB 0.1 MG ONE (23:43)
[2017-06-21] MEDS: CATAPRES TAB 0.2 MG PO SCH (23:46)
[2017-06-21] MEDS: COREG TAB 12.5 MG PO SCH (23:46)
[2017-06-22 01:57] LABS: CKMB % 1.1 % (<4); CREATINE KINASE 90 Units/L (26-192); CREATINE KINASE MB < 1.0 ng/mL (0-4.0); TROPONIN I < 0.02 ng/mL (0-1.5)
[2017-06-22] MEDS: CATAPRES TAB 0.2 MG PO SCH (05:25)
[2017-06-22 05:26] LABS: BASOPHILS % (AUTO) 0.9 % (0.2-1.0); EOSINOPHILS # (AUTO) 0.4 x10^3/uL (0.0-0.2); EOSINOPHILS % (AUTO) 6.8 % (0.9-2.9); HEMATOCRIT 33.5 % (36.0-47.0); HEMOGLOBIN 10.8 g/dL (12.0-16.0); MEAN CORPUSCULAR HEMOGLOBIN 27.2 pg (27.0-34.0); MEAN CORPUSCULAR HGB CONC 32.2 g/dL (33.0-35.0); MEAN CORPUSCULAR VOLUME 84.5 fL (80.0-100.0); MEAN PLATELET VOLUME 8.1 fL (7.4-11.0); MONOCYTES # (AUTO) 0.7 x10^3/uL (0.3-0.8); MONOCYTES % (AUTO) 12.5 % (0.0-13.0); NEUTROPHILS # (AUTO) 3.3 x10^3/uL (2.2-4.8); NEUTROPHILS % (AUTO) 60.8 % (42.0-75.0); PLATELET COUNT 169 X10^3/uL (150.0-450.0); RED BLOOD COUNT 3.97 X10^6/uL (3.5-5.4); RED CELL DISTRIBUTION WIDTH 15.6 % (11.6-16.5); WHITE BLOOD COUNT 5.5 X10^3/uL (3.6-10.0)
[2017-06-22 05:28] LABS: ALKALINE PHOSPHATASE 86 Units/L (46-116); CHLORIDE 107 mmol/L (98-107); HDL CHOLESTEROL 41 mg/dL (40-60)
[2017-06-22 05:44] LABS: ALANINE AMINOTRANSFERASE 16 Units/L (12-78); ASPARTATE AMINO TRANSFERASE 12 Units/L (15-37); BLOOD UREA NITROGEN 43 mg/dL (7-18); CALCIUM 8.5 mg/dL (8.5-10.1); CARBON DIOXIDE 23.3 mmol/L (21-32); CHOL/HDL RATIO 4.1 (0.0-5.0); CHOLESTEROL 170 mg/dL (0-200); COR CA(FOR HYPOALB) 9.3 mg/dL (8.5-10.1); CREATININE 3.06 mg/dL (0.55-1.02); SODIUM 140 mmol/L (136-145); TOTAL PROTEIN 7.3 g/dL (6.4-8.2); TRIGLYCERIDES 109 mg/dL (0-150); eGFR BLACK RACES 21 (>60); eGFR NON BLACK RACES 17 (>60)
[2017-06-22] MEDS: COREG TAB 12.5 MG PO SCH (08:39)
[2017-06-22 13:23] VITALS: BP 176/93
== END 2017-06-22 13:15 | disposition home or self-care (01) ==
LOC: UNDOADMOB 11:24 → ICU 11:24
PROVIDERS: ADMIT Internal Medicine; ATTEND Internal Medicine
DX: I12.9 Hypertensive chronic kidney disease with stage 1 through stage 4 chronic kidney disease, or unspecified chronic kidney disease (principal); N18.9 Chronic kidney disease, unspecified; N28.9 Disorder of kidney and ureter, unspecified; R06.02 Shortness of breath; I34.0 Nonrheumatic mitral (valve) insufficiency; I51.7 Cardiomegaly; R94.31 Abnormal electrocardiogram [ECG] [EKG]; R51 Headache
CPT/HCPCS: 36415; 71046; 80053; 80061; 82550; 82553; 83735; 84439; 84443; 84484; 85025; 93005; 93010; 93306; A4222; G0378; J0360

== ENCOUNTER → 2017-07-19 | Outpatient (CLI) | payer SELFPAY ==
[2017-06-22 13:23] VITALS: BP 176/93
[2017-07-19 15:28] LABS: ALANINE AMINOTRANSFERASE 17 Units/L (12-78); ALBUMIN 3.5 g/dL (3.4-5.0); ALKALINE PHOSPHATASE 103 Units/L (46-116); ASPARTATE AMINO TRANSFERASE 11 Units/L (15-37); BLOOD UREA NITROGEN 35 mg/dL (7-18); CALCIUM 8.1 mg/dL (8.5-10.1); CARBON DIOXIDE 25.8 mmol/L (21-32); CHLORIDE 105 mmol/L (98-107); CREATININE 3.13 mg/dL (0.55-1.02); SODIUM 141 mmol/L (136-145); TOTAL PROTEIN 8.2 g/dL (6.4-8.2); eGFR BLACK RACES 20 (>60); eGFR NON BLACK RACES 17 (>60)
[2017-07-19 15:29] LABS: BASOPHILS # (AUTO) 0.1 X10^3/uL (0.0-0.1); BASOPHILS % (AUTO) 0.8 % (0.2-1.0); EOSINOPHILS # (AUTO) 0.6 x10^3/uL (0.0-0.2); EOSINOPHILS % (AUTO) 8.5 % (0.9-2.9); HEMATOCRIT 35.8 % (36.0-47.0); HEMOGLOBIN 11.9 g/dL (12.0-16.0); LYMPHOCYTES # (AUTO) 1.9 X10^3/uL (1.3-2.9); LYMPHOCYTES % (AUTO) 26.4 % (21.0-51.0); MEAN CORPUSCULAR HEMOGLOBIN 27.6 pg (27.0-34.0); MEAN CORPUSCULAR HGB CONC 33.2 g/dL (33.0-35.0); MEAN CORPUSCULAR VOLUME 83.3 fL (80.0-100.0); MEAN PLATELET VOLUME 8.1 fL (7.4-11.0); MONOCYTES # (AUTO) 0.7 x10^3/uL (0.3-0.8); MONOCYTES % (AUTO) 9.5 % (0.0-13.0); NEUTROPHILS # (AUTO) 3.9 x10^3/uL (2.2-4.8); NEUTROPHILS % (AUTO) 54.8 % (42.0-75.0); PLATELET COUNT 188 X10^3/uL (150.0-450.0); RED CELL DISTRIBUTION WIDTH 15.1 % (11.6-16.5); WHITE BLOOD COUNT 7.1 X10^3/uL (3.6-10.0)
== END ==
LOC: LAB 14:57
PROVIDERS: ATTEND Nurse Practitioner Family
DX: I10 Essential (primary) hypertension (principal)
CPT/HCPCS: 36415; 80053; 85025

== ENCOUNTER 2021-03-13 18:43 | Inpatient (IN) ==
[2021-03-13] MEDS ORDERED: NS 1,000 ML IV 1,000 ML IV ONE (19:54)
--- NOTE | 2021-03-13 20:03 | DR.CP ---
HPI Time Seen Time Seen by Provider: 03/13/21 19:46 PCP Primary Care Physician: MONSE Yeung PUPPY SITTER HPI Comment HPI Comment: A 56 y/o female presenting with sharp abdominal pain onset at about 1100 hrs. this morning. She is pointing to Lt. half of abdomen. Complaint Chief Complaint:: PT REPORTS THAT SHE STARTED HAVING ABD PAIN YESTERDAY WHEN SHE WOKE UP AROUND 11AM AFTER SHE ATE YESTERDAY , PT REPORTS EPIGASTRIC PAIN SHARP, AND PT REPORTS PAIN RADIATES TO HER CHEST ( MID ) ,BR Self Treatment fo Chief Complaint: TYLENOL COVID-19 Has patient experienced Coronavirus symptoms: No Reviewed Nurses Notes Review: Yes Source History Provided: Patient Mode of Arrival Mode of Arrival: Ambulatory Timing Onset of Chief Complaint: 03/12/21 Came on: Gradually Pain: Present Now Location Chest Pain Radiation Location: None Associated Signs and Symptoms Associated Signs and Symptoms: None PMH PMH Past Medical History: Yes Past Medical History: Hypertension and Renal Disease Past Surgical History: Yes Surgical History: Angioplasty/Stents Family History History of Family Medical Conditions: Yes Family Medical History: Diabetes Mellitus, [place] and Hypertension Social History Does patient currently use any type of tobacco product: No Have you used tobacco products in the last 12 months: No Type of Tobacco Use: None Does any household member use tobacco: No Alcohol Use: None Do you use any recreational Drugs:: No Lives With: Family Lives Where: Home Travel Risk Coronavirus risk:travel/contact w/high risk person: No Has patient experienced Coronavirus symptoms: No Infectious screening In the last 2 months have you had wt loss of >10#?: NO Have you had fever, night sweats or hemotysis?: No Have you traveled outside the country in the last 6 months?: No Isolation: Standard ROS Review of Systems Constitutional: No Symptoms Reported Eyes: No Symptoms Reported ENTM: No Symptoms Reported Respiratoy: No Symptoms Reported Cardiovascular: No Symptoms Reported Gastrointestinal/Abdominal: Abdominal Pain (Lt. side of abdomen) Genitourinary: No Symptoms Reported Neurological: No Symptoms Reported Musculoskeletal: No Symptoms Reported Integumentary: No Symptoms Reported Hematologic/Lymphatic: No Symptoms Reported Endocrine: No Symptoms Reported Psychiatric: No Symptoms Reported PE Vitals Vitals: Temperature 98.4 F Pulse Rate 66 Respiratory Rate 18 Blood Pressure [Right Arm] 133/70 Blood Pressure 185/93 O2 Sat by Pulse Oximetry 97 General Limitations: No Limitations General Appearance: Alert and In No Apparent Distress Head Head Exam: Normal Inspection, Atraumatic and Normocephalic Eyes Eye exam: Normal Appearance and EOMI ENT ENT Exam: Normal Exam, Normal Oropharynx, Normal External Ear Exam and Mucous Membranes Moist Chest Chest Inspection: Normal Inspection and Symmetric Chest Wall Rise Respiratory Respiratory Exam: Normal Lung Sounds Bilat Cardiovascular Cardiovascular Exam: Regular Rate, Normal Rhythm, Normal Heart Sounds, +S1 and +S2 Abdominal Exam Abdominal Exam: Normal Inspection, Normal Bowel Sounds, Soft and Tenderness Abdominal Tenderness: LUQ and LLQ Extremities Extremities Exam: Normal Inspection and Full ROM Back Back Exam: Normal Inspection and Full ROM Neurologic Neurological Exam: Alert and Oriented X3 Psychiatric Psychiatric Exam: Normal Affect and Normal Mood Skin Skin Exam: Intact COURSE Reevaluation 1st: Improved Consultation Consultation Comments: I discussed the findings with the pt. and then with on- call Surgeon, Dr. Santana. Dr. Santana agrees to accept the pt. to his service. Education/Counseling Education/Counseling: Patient, Education and Counseling Educated On: Treatment, Diagnosis, Prognosis and Needs for Follow Up ROR Labs Reviewed Laboratory Results Reviewed?: Yes Result Diagrams: 03/13/21 20:01 03/13/21 20:01 Laboratory: WBC 6.6 X10^3/uL (3.6-10.0) 03/13/21 20:01 RBC 4.00 X10^6/uL (3.5-5.4) 03/13/21 20:01 Hgb 10.9 g/dL (12.0-16.0) L 03/13/21 20:01 Hct 33.7 % (36.0-47.0) L 03/13/21 20:01 MCV 84.3 fL (80.0-100.0) 03/13/21 20:01 MCH 27.3 pg (27.0-34.0) 03/13/21 20:01 MCHC 32.4 g/dL (33.0-35.0) L 03/13/21 20:01 RDW 15.3 % (11.6-16.5) 03/13/21 20:01 Plt Count 134 X10^3/uL (150.0-450.0) L 03/13/21 20:01 MPV 7.7 fL (7.4-11.0) 03/13/21 20:01 Neut % (Auto) 75.3 % (42.0-75.0) H 03/13/21 20:01 Lymph % (Auto) 15.4 % (21.0-51.0) L 03/13/21 20:01 [place] % (Auto) 8.0 % (0.0-13.0) 03/13/21 20:01 Eos % (Auto) 0.5 % (0.9-2.9) L 03/13/21 20:01 Baso % (Auto) 0.8 % (0.2-1.0) 03/13/21 20:01 Neut # (Auto) 5.0 x10^3/uL (2.2-4.8) H 03/13/21 20:01 Lymph # (Auto) 1.0 X10^3/uL (1.3-2.9) L 03/13/21 20:01 [place] # (Auto) 0.5 x10^3/uL (0.3-0.8) 03/13/21 20:01 Eos # (Auto) 0.0 x10^3/uL (0.0-0.2) 03/13/21 20:01 Baso # (Auto) 0.1 X10^3/uL (0.0-0.1) 03/13/21 20:01 Absolute Nucleated RBC 0.1 /100WBC 03/13/21 20:01 Sodium 141 mmol/L (136-145) 03/13/21 20:01 Corrected Sodium 142 mmol/L (136-145) 03/13/21 20:01 Potassium 3.8 mmol/L (3.5-5.1) 03/13/21 20:01 Chloride 105 mmol/L (98-107) 03/13/21 20:01 Carbon Dioxide 24.5 mmol/L (21-32) 03/13/21 20:01 BUN 37 mg/dL (7-18) H 03/13/21 20:01 Creatinine 4.62 mg/dL (0.55-1.02) H 03/13/21 20:01 Est GFR (MDRD) Af Amer 13 (>60) L 03/13/21 20:01 Est GFR (MDRD) Non-Af 10 (>60) L 03/13/21 20:01 Glucose 128 mg/dL (65-99) H 03/13/21 20:01 Calcium 8.6 mg/dL (8.5-10.1) 03/13/21 20:01 Corrected Calcium TNP 03/13/21 20:01 Total Bilirubin 0.20 mg/dL (0.2-1.0) 03/13/21 20:01 AST 18 Units/L (15-37) 03/13/21 20:01 ALT 19 Units/L (12-78) 03/13/21 20:01 Alkaline Phosphatase 68 Units/L (46-116) 03/13/21 20:01 Total Protein 8.2 g/dL (6.4-8.2) 03/13/21 20:01 Albumin 3.4 g/dL (3.4-5.0) 03/13/21 20:01 Globulin 4.8 g/dL (2.5-4.5) H 03/13/21 20:01 Albumin/Globulin Ratio 0.7 Ratio (1.1-2.1) L 03/13/21 20:01 EKG Rate: 56 [place]: Normal Rhythm: NSR Block: IVCD Hypertrophy: None ST: Normal Opioid Opioid Risk Tool Age (Cosntantine box if 16-45): No History of Preadolescent Sexual Abuse: No Total: 0 Total Score Risk Category: Low Risk Copyright: [employer] predicting aberrant behaviors Diagnosis Discharge Problem: SBO (small bowel obstruction), Hypertension, uncontrolled, CKD (chronic kidney disease) stage 5, GFR less than 15 ml/min CAD (coronary artery disease) Qualifiers: Coronary Disease-Associated Artery/Lesion type: [place] artery [place] vs. transplanted heart: [place] heart Associated angina: without angina Qualified Code(s): I25.10 - Atherosclerotic heart disease of [place] coronary artery without angina pectoris
[2021-03-13] MEDS ORDERED: NS 1,000 ML IV 1,000 ML ONE (20:10)
[2021-03-13 20:12] LABS: BASOPHILS # (AUTO) 0.1 X10^3/uL (0.0-0.1); BASOPHILS % (AUTO) 0.8 % (0.2-1.0); EOSINOPHILS % (AUTO) 0.5 % (0.9-2.9); HEMATOCRIT 33.7 % (36.0-47.0); HEMOGLOBIN 10.9 g/dL (12.0-16.0); LYMPHOCYTES % (AUTO) 15.4 % (21.0-51.0); MEAN CORPUSCULAR HEMOGLOBIN 27.3 pg (27.0-34.0); MEAN CORPUSCULAR HGB CONC 32.4 g/dL (33.0-35.0); MEAN CORPUSCULAR VOLUME 84.3 fL (80.0-100.0); MEAN PLATELET VOLUME 7.7 fL (7.4-11.0); MONOCYTES # (AUTO) 0.5 x10^3/uL (0.3-0.8); NEUTROPHILS % (AUTO) 75.3 % (42.0-75.0); RED CELL DISTRIBUTION WIDTH 15.3 % (11.6-16.5); WHITE BLOOD COUNT 6.6 X10^3/uL (3.6-10.0)
[2021-03-13 20:22] LABS: ALANINE AMINOTRANSFERASE 19 Units/L (12-78); ALBUMIN 3.4 g/dL (3.4-5.0); ALKALINE PHOSPHATASE 68 Units/L (46-116); ASPARTATE AMINO TRANSFERASE 18 Units/L (15-37); BLOOD UREA NITROGEN 37 mg/dL (7-18); CALCIUM 8.6 mg/dL (8.5-10.1); CARBON DIOXIDE 24.5 mmol/L (21-32); CHLORIDE 105 mmol/L (98-107); COR NA(FOR HYPERGLY) 142 mmol/L (136-145); CREATININE 4.62 mg/dL (0.55-1.02); SODIUM 141 mmol/L (136-145); TOTAL PROTEIN 8.2 g/dL (6.4-8.2); eGFR NON BLACK RACES 10 (>60)
[2021-03-13] MEDS ORDERED: ZOFRAN INJ 4 MG VIAL IVP ONE (20:27)
[2021-03-13] MEDS ORDERED: ZOFRAN INJ 4 MG VIAL ONE (20:28)
--- NOTE | 2021-03-13 21:26 | CT ---
EXAM: CT ABDOMEN AND PELVIS WITHOUT INTRAVENOUS CONTRASTHISTORY: Abdominal pain. Bloating, nausea, and vomiting.TECHNIQUE: Spiral axial CT images are obtained through the abdomen and pelvis without the administration of intravenous contrast. Additional coronal and sagittal reformatted images are reconstructed.DOSIMETRY: Total DLP 642.5 mGycm; CTDI 13.6 mGyCOMPARISON: None available.FINDINGS:GASTROINTESTINAL TRACT: Findings consistent with small bowel obstruction, with up to 3.3 cm dilated fluid-filled small bowel loops within the abdomen and pelvis, and completely collapsed proximal and distal small bowel loops; possible closed-loop obstruction ((SBO with proximal small bowel decompression with vomiting); obstructing etiology is not visualized; rule out adhesions. There is a small hiatal hernia (4.1 cm transverse by 4 cm AP). There is no evidence for bowel herniation, colitis or diverticulitis. A normal-appearing appendix is seen.GENITOURINARY SYSTEM: The kidneys are unremarkable. There is no ureteral calculus or stigmata of obstructive uropathy. The urinary bladder is grossly unremarkable for a non-dedicated exam.REPRODUCTIVE SYSTEM: There is an enlarged fibroid uterus with the largest discernible fibroid seen in the posterior fundal region measuring up to 5.5 cm. Correlation with ultrasound and/or MRI may be beneficial for optimal assessment of the uterus. The adnexa appear grossly unremarkable for a CT scan. Consider follow-up dedicated imaging as clinically warranted.CT ABDOMEN: The liver, spleen, pancreas, adrenal glands, gallbladder, aorta, and inferior vena cava are within normal limits for a noncontrast CT scan. There is no intra-abdominal or retroperitoneal lymphadenopathy, free fluid, or free air seen. No abdominal herniation is noted.CT PELVIS: No pelvic sidewall or inguinal lymphadenopathy is seen. No inguinal herniation is noted. No free fluid or free air is seen.BONES AND JOINTS: Severe multilevel DDD is seen throughout the distal thoracic and lumbar spine. The visualized bony structures are otherwise within normal limits.LUNG BASES: The lung bases are clear. Anterior pericardial effusion (measuring up to 1.3 cm thick).IMPRESSION:1. Findings consistent with SBO, with up to 3.3 cm dilated fluid-filled small bowel loops within the abdomen and pelvis, and completely collapsed proximal and distal small bowel loops; possible closed-loop obstruction ((SBO with proximal small bowel decompression with vomiting); obstructing etiology is not visualized; rule out adhesions.2. Small hiatal hernia (4.1 cm transverse by 4 cm AP). There is no evidence for bowel herniation, colitis or diverticulitis.3. No evidence for acute appendicitis, bowel herniation, colitis or diverticulitis seen.4. No free fluid, free air, or lymphadenopathy seen.5. Enlarged fibroid uterus with the largest discernible fibroid seen in the posterior fundal region measuring up to 5.5 cm. Correlation with ultrasound and/or MRI may be beneficial for optimal assessment of the uterus.6. No evidence for renal stone disease or obstructive uropathy.7. Anterior pericardial effusion (measuring up to 1.3 cm thick).Electronically signed by: Shandra Wiggins (Mar 13, 2021 21:24:47)
--- NOTE | 2021-03-13 22:49 | RAD ---
STUDY: KUBCOMPARISON: NoneHISTORY: NG TUBE PLACEMENTFINDINGS:The tip of the enteric tube is at the level of the GE junction. The side port is at the level of the distal esophagus. Please consider further advancing the enteric tube by 10 cm and repeat radiograph for confirmation of positioning.IMPRESSION:The tip of the enteric tube is at the level of the GE junction. The side port is at the level of the distal esophagus. Please consider further advancing the enteric tube by 10 cm and repeat radiograph for confirmation of positioning.Communications: I have requested that the above findings be communicated to the referring physician/clinical team by the call academic support coordinator at the time I signed this report. Documentation of the time in which the call academic support coordinator communicated this information to the referring physician/clinical team has been detailed in the PACS system.Electronically signed by: Slade Wilson (Mar 13, 2021 22:47:40)
[2021-03-13] MEDS ORDERED: PERIACTIN TAB 4 MG PO PRN (22:59)
[2021-03-13] MEDS ORDERED: PHARMACY CONSULT - IVERMECTIN XX SCH (23:00)
[2021-03-13] MEDS ORDERED: NS 1,000 ML IV 1,000 ML IV SCH (23:00)
[2021-03-13] MEDS ORDERED: PULMICORT NEB TX 0.5 MG NEB SCH (23:15)
[2021-03-13] MEDS ORDERED: BROVANA IN SCH (23:15)
[2021-03-13] MEDS ORDERED: VITAMIN D (1.25MG) PO SCH (23:15)
[2021-03-13] MEDS ORDERED: VITAMIN A PO SCH (23:30)
[2021-03-13] MEDS ORDERED: ZINC SULFATE PO SCH (23:45)
[2021-03-13] MEDS ORDERED: CYTOTEC PO SCH (23:45)
[2021-03-13] MEDS ORDERED: THIAMINE HCL INJ IVP SCH (23:45)
[2021-03-13] MEDS ORDERED: ASCORBIC ACID INJ MULTI-DOSE VIAL 1,500 MG in NS 100 ML IV 100 ML IV SCH (23:45)
[2021-03-13] MEDS ORDERED: SOLU-Medrol 125 MG VIAL IVP SCH (23:45)
[2021-03-13] MEDS ORDERED: PROTONIX INJ 40 MG VIAL IVP SCH (23:45)
[2021-03-13] MEDS ORDERED: CATAPRES TAB 0.2 MG PO ONE (23:47)
[2021-03-13] MEDS ORDERED: DILAUDID INJ IVP PRN (23:49)
--- NOTE | 2021-03-13 23:55 | RAD ---
STUDY: FRONTAL VIEW CHESTCOMPARISON: October 02, 2020HISTORY: COVID+FINDINGS:Enteric tube has been placed with tip below the diaphragm and out of the field of view most likely in the stomach.Slight worsening alveolar airspace disease is seen in the right lower lung zone.The heart size is within normal limits.The mediastinum is unremarkable.There is no evidence of pleural effusion or gross pneumothorax.The trachea is midline.IMPRESSION:Enteric tube has been placed with tip below the diaphragm and out of the field of view most likely in the stomach.Slight worsening alveolar airspace disease is seen in the right lower lung zone.Electronically signed by: Slade Wilson (Mar 13, 2021 23:53:49)
--- NOTE | 2021-03-13 23:55 | RAD ---
STUDY: KUBCOMPARISON: NoneHISTORY: NG TUBE ADVANCEMENTFINDINGS:The tip and side port of the enteric tube is seen below the diaphragm in the region of the stomach.IMPRESSION:THE TIP AND SIDE PORT OF THE ENTERIC TUBE IS IN THE REGION OF THE STOMACH. br.br
[2021-03-14] MEDS ORDERED: VITAMIN D (1.25MG) PO SCH
[2021-03-14] MEDS ORDERED: CATAPRES TAB 0.2 MG PO ONE
[2021-03-14] MEDS ORDERED: PHARMACY CONSULT - IVERMECTIN XX SCH
[2021-03-14] MEDS ORDERED: VITAMIN A PO SCH
--- NOTE | 2021-03-14 00:13 | DR.H&P ---
H&P History & Physical for Day of: H&P Date: 03/14/21 Chief Complaint Chief Complaint: 56 yo female with presentation to ER for abdominal pain with nausea and vomiting. Allergies Allergies Allergy/AdvReac Type Severity Reaction Status Date / Time diphenhydramine Allergy Verified 06/08/17 13:35 [From Benadryl] History of Present Illness History of Present Illness: 56 yo female with presentation to ER with acute onset of abdominal pain. Hx of CAD s/p catherization but does not believe she had any stents placed. Also history of diabetes, hypertension, chronic kidney disease. On presentation she had complained of the abdominal pain and nausea with vomiting. CT scan done without contrast showed evidence of small bowel obstruction. Last Bowel movement this AM and has had no flatus since this AM. NG tube placed in the ER . Shortly after I had admitted the patient her COVID tests came back positive she denies any shortness of breath. Past Medical History Past Medical History: Coronary Artery Disease, Diabetes, Hypertension (on multiple medications to control her blood pressure ) and Renal Disease (chronic kidney disease not on dialysis ) Past Surgical History Surgical History: Angioplasty/Stents (she gives history of cardiac c atherization but does not think she has had any coronary stents placed . ) Family History Family Medical History: Diabetes Mellitus, [place] and Hypertension Social History Does patient currently use any type of tobacco product: No Have you used tobacco products in the last 12 months: No Type of Tobacco Use: None Does any household member use tobacco: No Alcohol Use: None Prescription drug monitoring program results: PDMP was not reviewed Medications Home Medications: diphenhydramine [From Benadryl] Allergy (Verified 06/08/17 13:35) amlodipine 10 mg daily carvediol 12.5 mg BID Clonidine 0.2 mg TID Lasix 40 mg daily Hydralazine 10 mg TID Lisinopril 40 mg daily Labs Result Diagrams: 03/13/21 20:01 03/13/21 20:01 Labs: Laboratory WBC 6.6 X10^3/uL (3.6-10.0) 03/13/21 20:01 RBC 4.00 X10^6/uL (3.5-5.4) 03/13/21 20:01 Hgb 10.9 g/dL (12.0-16.0) L 03/13/21 20:01 Hct 33.7 % (36.0-47.0) L 03/13/21 20:01 MCV 84.3 fL (80.0-100.0) 03/13/21 20:01 MCH 27.3 pg (27.0-34.0) 03/13/21 20:01 MCHC 32.4 g/dL (33.0-35.0) L 03/13/21 20:01 RDW 15.3 % (11.6-16.5) 03/13/21 20:01 Plt Count 134 X10^3/uL (150.0-450.0) L 03/13/21 20:01 MPV 7.7 fL (7.4-11.0) 03/13/21 20:01 Neut % (Auto) 75.3 % (42.0-75.0) H 03/13/21 20:01 Lymph % (Auto) 15.4 % (21.0-51.0) L 03/13/21 20:01 [place] % (Auto) 8.0 % (0.0-13.0) 03/13/21 20:01 Eos % (Auto) 0.5 % (0.9-2.9) L 03/13/21 20:01 Baso % (Auto) 0.8 % (0.2-1.0) 03/13/21 20:01 Neut # (Auto) 5.0 x10^3/uL (2.2-4.8) H 03/13/21 20:01 Lymph # (Auto) 1.0 X10^3/uL (1.3-2.9) L 03/13/21 20:01 [place] # (Auto) 0.5 x10^3/uL (0.3-0.8) 03/13/21 20:01 Eos # (Auto) 0.0 x10^3/uL (0.0-0.2) 03/13/21 20:01 Baso # (Auto) 0.1 X10^3/uL (0.0-0.1) 03/13/21 20:01 Absolute Nucleated RBC 0.1 /100WBC 03/13/21 20:01 Sodium 141 mmol/L (136-145) 03/13/21 20:01 Corrected Sodium 142 mmol/L (136-145) 03/13/21 20:01 Potassium 3.8 mmol/L (3.5-5.1) 03/13/21 20:01 Chloride 105 mmol/L (98-107) 03/13/21 20:01 Carbon Dioxide 24.5 mmol/L (21-32) 03/13/21 20:01 BUN 37 mg/dL (7-18) H 03/13/21 20:01 Creatinine 4.62 mg/dL (0.55-1.02) H 03/13/21 20:01 Est GFR (MDRD) Af Amer 13 (>60) L 03/13/21 20:01 Est GFR (MDRD) Non-Af 10 (>60) L 03/13/21 20:01 Glucose 128 mg/dL (65-99) H 03/13/21 20:01 Calcium 8.6 mg/dL (8.5-10.1) 03/13/21 20:01 Corrected Calcium TNP 03/13/21 20:01 Total Bilirubin 0.20 mg/dL (0.2-1.0) 03/13/21 20:01 AST 18 Units/L (15-37) 03/13/21 20:01 ALT 19 Units/L (12-78) 03/13/21 20:01 Alkaline Phosphatase 68 Units/L (46-116) 03/13/21 20:01 Total Protein 8.2 g/dL (6.4-8.2) 03/13/21 20:01 Albumin 3.4 g/dL (3.4-5.0) 03/13/21 20:01 Globulin 4.8 g/dL (2.5-4.5) H 03/13/21 20:01 Albumin/Globulin Ratio 0.7 Ratio (1.1-2.1) L 03/13/21 20:01 SARS CoV-2 RNA Rapid XIANG Positive (NEGATIVE) A 03/13/21 21:56 Review of Systems Constitutional: Other (C/O nausea and vomiting, denied diarrhea) Eyes: No Symptoms Reported ENT: No Symptoms Reported Respiratory: No Symptoms Reported Cardiovascular: No Symptoms Reported, See HPI, Palpitations, Orthopnea, Paroxysmal Noc. Dyspnea, Edema, Light Headedness and Other; denies Chest Pain Gastrointestinal: Nausea, Vomiting and Abdominal Pain (generalized ) Genitourinary: No Symptoms Reported Musculoskeletal: No Symptoms Reported Skin: No Symptoms Reported Neurological: No Symptoms Reported Physical Exam Vital Signs: Temperature 98.4 F Pulse Rate 71 Respiratory Rate 18 Blood Pressure [Right Arm] 133/70 Blood Pressure 185/93 O2 Sat by Pulse Oximetry 99 Oriented: Normal, Time and Person Eyes: Normal Ear: Normal Nose: Normal Throat: Normal Respiratory: Clear Throughout Cardiovascular: Normal : Normal Auscultation: Bowel Sounds: Normal Tenderness: Normal (not tender to my exam) Skin: Normal Musculoskeletal: Normal Psychiatric: Normal Mood Description: Flat Affect: Quiet Speech Pattern: Clear Assessment/Plan (1) HTN (hypertension): Status: Acute Plan: Begin home medications (2) SBO (small bowel obstruction): Status: Acute Plan: NG tube, hydration and sequential labs and exams (3) CAD (coronary artery disease): Qualifiers: Associated angina: without angina Coronary Disease-Associated Artery/Lesion type: [place] artery [place] vs. transplanted heart: [place] heart Qualified Code(s): I25.10 - Atherosclerotic heart disease of [place] coronary artery without angina pectoris Status: Acute Plan: stable (4) COVID: Status: Acute Plan: Consult for treatment (5) CKD (chronic kidney disease) stage 5, GFR less than 15 ml/min: Status: Acute Plan: Hydrate and observe with follow up labs Review H&P Reviewed: Yes Patient was examined?: Yes
[2021-03-14] MEDS: ZINC SULFATE PO SCH ×3 (00:40→20:30)
[2021-03-14] MEDS: ASCORBIC ACID INJ MULTI-DOSE VIAL 1,500 MG in NS 50 ML IV 50 ML IV SCH ×3 (00:40→14:04)
[2021-03-14] MEDS: CYTOTEC PO SCH ×5 (00:40→20:30)
[2021-03-14] MEDS: THIAMINE HCL INJ IVP SCH ×2 (00:40→09:32)
[2021-03-14] MEDS: PROTONIX INJ 40 MG VIAL IVP SCH ×3 (00:40→20:30)
[2021-03-14] MEDS: SOLU-Medrol 125 MG VIAL IVP SCH ×3 (00:40→14:03)
[2021-03-14] MEDS: NS 1,000 ML IV 1,000 ML IV SCH (00:40)
[2021-03-14] MEDS ORDERED: PERIACTIN TAB 4 MG PO PRN (03:03)
[2021-03-14 05:21] LABS: BASOPHILS % (AUTO) 0.3 % (0.2-1.0); HEMATOCRIT 35.4 % (36.0-47.0); HEMOGLOBIN 11.5 g/dL (12.0-16.0); LYMPHOCYTES # (AUTO) 0.6 X10^3/uL (1.3-2.9); MEAN CORPUSCULAR HEMOGLOBIN 27.3 pg (27.0-34.0); MEAN CORPUSCULAR HGB CONC 32.6 g/dL (33.0-35.0); MEAN CORPUSCULAR VOLUME 83.9 fL (80.0-100.0); MEAN PLATELET VOLUME 7.8 fL (7.4-11.0); MONOCYTES # (AUTO) 0.1 x10^3/uL (0.3-0.8); MONOCYTES % (AUTO) 1.2 % (0.0-13.0); NEUTROPHILS # (AUTO) 5.4 x10^3/uL (2.2-4.8); NEUTROPHILS % (AUTO) 89.5 % (42.0-75.0); RED BLOOD COUNT 4.22 X10^6/uL (3.5-5.4); RED CELL DISTRIBUTION WIDTH 15.4 % (11.6-16.5); WHITE BLOOD COUNT 6.1 X10^3/uL (3.6-10.0)
[2021-03-14 05:23] LABS: ALBUMIN 3.1 g/dL (3.4-5.0); CALCIUM 8.4 mg/dL (8.5-10.1); CARBON DIOXIDE 22.1 mmol/L (21-32); COR CA(FOR HYPOALB) 9.1 mg/dL (8.5-10.1); CREATININE 4.33 mg/dL (0.55-1.02); TOTAL PROTEIN 7.9 g/dL (6.4-8.2)
[2021-03-14] MEDS: CATAPRES TAB 0.2 MG PO SCH ×3 (05:59→22:45)
[2021-03-14] MEDS ORDERED: CATAPRES TAB 0.2 MG PO SCH (06:00)
[2021-03-14] MEDS: PULMICORT NEB TX 0.5 MG NEB SCH ×2 (08:31→21:29)
[2021-03-14] MEDS: BROVANA IN SCH ×2 (08:31→21:29)
[2021-03-14] MEDS ORDERED: PEPCID TAB 40 MG PO SCH (09:00)
[2021-03-14] MEDS ORDERED: ZESTRIL TAB 40 MG PO SCH (09:00)
[2021-03-14] MEDS ORDERED: IVERMECTIN PO SCH (09:00)
[2021-03-14] MEDS ORDERED: COREG TAB 12.5 MG PO SCH ×2 (09:00)
[2021-03-14] MEDS ORDERED: APRESOLINE TAB 10 MG PO SCH (09:00)
[2021-03-14] MEDS ORDERED: NORVASC TAB 10 MG PO SCH (09:00)
[2021-03-14] MEDS: PEPCID TAB 40 MG PO SCH (09:31)
[2021-03-14] MEDS: LIPITOR TAB 80 MG PO SCH (09:31)
[2021-03-14] MEDS: ZESTRIL TAB 40 MG PO SCH (09:33)
[2021-03-14] MEDS: NORVASC TAB 10 MG PO SCH (09:33)
[2021-03-14] MEDS: VITAMIN D3 125 mcg (5,000 UNITS) PO SCH (09:35)
[2021-03-14] MEDS: APRESOLINE TAB 10 MG PO SCH ×4 (09:46→20:30)
[2021-03-14] MEDS: MORPHINE SULFATE INJ 2 MG INJ IVP PRN (09:46)
[2021-03-14] MEDS ORDERED: NS IV NR ×2 (10:00)
[2021-03-14] MEDS ORDERED: DRUG FILTER EXTENSION SET IV NR ×2 (10:00)
[2021-03-14] MEDS ORDERED: SOTROVIMAB IV NR ×2 (10:00)
[2021-03-14] MEDS ORDERED: DRUG FILTER EXTENSION SET ONE (10:18)
--- NOTE | 2021-03-14 10:48 | RAD ---
HISTORYSBOSTUDYACUTE ABDOMEN x-ray SERIES, one view chest and two view abdomenCOMPARISONX-rays from previous dayFINDINGSEnteric tube is seen passing into the region of the distal antrum of the stomach or proximal duodenum. No free intraperitoneal air or abnormal air-fluid level is seen. There is likely moderate right-sided constipation. Small tubelike density overlying the hepatic flexure of the colon on the supine images not seen on the erect image and may be extrinsic to the patient. No small bowel air is seen.There is cardiomegaly and possible mild CHF. No pulmonary edema is seen. Mild elevation of the left hemidiaphragm and associated atelectasis are similar to prior study. Right lung is clear. No pneumothorax or pleural effusion is seen.IMPRESSIONLikely new mild right-sided constipation.Possible mild CHF as developed.Electronically signed by: Ortiz Sanchez (Mar 14, 2021 10:47:04)
--- NOTE | 2021-03-14 13:47 | DR.CONSULT ---
Consult - Chief Complaint Chief Complaint: abdominal pain - History of Present Illness History of Present Illness: Patient is a 56 year old AAF who was admitted to surgery due to SBO. Patient later tested positive for COVID 19 infection. Patient is not very symptomatic for COVID; denies SOB or any other concerns. Reports continued abdominal pain. States last BM yesterday morning and was normal. Reports nausea and vomiting as well. PCP Dr. Hermosillo. H CAD, CKD, HTN, DM and multiple other conditions. - Past Medical History Past Medical History: Coronary Artery Disease, Hypertension (on multiple medications to control her blood pressure), Diabetes, Renal Disease (chronic kidney disease not on dialysis) - Past Surgical History Surgical History: Angioplasty/Stents (she gives history of cardiac c atherization but does not think she has had any coronary stents placed .) - Family History Family Medical History: Diabetes Mellitus, [place], Hypertension - Social History Does patient currently use any type of tobacco product: No Have you used tobacco products in the last 12 months: No Type of Tobacco Use: None Does any household member use tobacco: No Alcohol Use: None Drug Use: None - Medications Home Medications: diphenhydramine [From Benadryl] Allergy (Verified 06/08/17 13:35) CONTINUE taking the following medications clonidine HCl 0.2 mg PO TID 03/14/21 [History] gabapentin 100 mg PO TID 03/14/21 [History] hydralazine 50 mg PO TID 03/14/21 [History] nifedipine 60 mg PO DAILY 03/14/21 [History] tramadol 50 mg PO DAILY 03/14/21 [History] - Physical Exam Vital Signs: Temperature 99.5 F Pulse Rate 67 Respiratory Rate 19 Blood Pressure [Right Arm] 133/70 Blood Pressure 152/84 O2 Sat by Pulse Oximetry 92 - Allergies Allergies/Adverse Reactions: Allergies Allergy/AdvReac Type Severity Reaction Status Date / Time diphenhydramine Allergy Verified 06/08/17 13:35 [From Benadryl]
--- NOTE | 2021-03-14 13:51 | PCM.PROG ---
Progress Note - Subjective Subjective: Patient is a 56 year old AAF who was admitted to surgery due to SBO. Patient later tested positive for COVID 19 infection. Patient is not very symptomatic for COVID; denies SOB or any other concerns. Reports continued abdominal pain. States last BM yesterday morning and was normal. Reports nausea and vomiting as well. PCP Dr. Hermosillo. PMH CAD, CKD, HTN, DM and multiple other conditions. - Past Medical Family Social History Past Med/Fam/Surg Hx: No changes since H&P Allergies: Allergies diphenhydramine [From Benadryl] Allergy (Verified 06/08/17 13:35) - Review of Systems ROS: No change since H&P - Vital Signs and I&O's Vital Signs: Temperature 99.5 F Pulse Rate 67 Respiratory Rate 19 Blood Pressure [Right Arm] 133/70 Blood Pressure 152/84 O2 Sat by Pulse Oximetry 92 Intake and Output: Intake & Output 03/11/21 03/12/21 03/13/21 03/14/21 23:59 23:59 23:59 23:59 Intake Total 946 / 946 Output Total 400 / 400 Balance 546 / 546 - Physical Exam Oriented: Normal, Time, Person, Place Eyes: Normal Ear: Normal Nose: Other (NGT to LIWS) Throat: Normal Respiratory: Normal Cardiovascular: Normal : Normal Auscultation: Bowel Sounds: Decreased Palpation: Normal Tenderness: Diffuse, Moderate Skin: Normal Musculoskeletal: Normal Psychiatric: Normal Mood Description: Calm Affect: Normal Speech Pattern: Clear, Appropriate - Laboratory and Diagnostics Result Diagrams: 03/14/21 04:59 03/14/21 04:59 Labs: Laboratory WBC 6.1 X10^3/uL (3.6-10.0) 03/14/21 04:59 RBC 4.22 X10^6/uL (3.5-5.4) 03/14/21 04:59 Hgb 11.5 g/dL (12.0-16.0) L 03/14/21 04:59 Hct 35.4 % (36.0-47.0) L 03/14/21 04:59 MCV 83.9 fL (80.0-100.0) 03/14/21 04:59 MCH 27.3 pg (27.0-34.0) 03/14/21 04:59 MCHC 32.6 g/dL (33.0-35.0) L 03/14/21 04:59 RDW 15.4 % (11.6-16.5) 03/14/21 04:59 Plt Count 147 X10^3/uL (150.0-450.0) L 03/14/21 04:59 MPV 7.8 fL (7.4-11.0) 03/14/21 04:59 Neut % (Auto) 89.5 % (42.0-75.0) H 03/14/21 04:59 Lymph % (Auto) 9.0 % (21.0-51.0) L 03/14/21 04:59 [place] % (Auto) 1.2 % (0.0-13.0) 03/14/21 04:59 Eos % (Auto) 0.0 % (0.9-2.9) L 03/14/21 04:59 Baso % (Auto) 0.3 % (0.2-1.0) 03/14/21 04:59 Neut # (Auto) 5.4 x10^3/uL (2.2-4.8) H 03/14/21 04:59 Lymph # (Auto) 0.6 X10^3/uL (1.3-2.9) L 03/14/21 04:59 [place] # (Auto) 0.1 x10^3/uL (0.3-0.8) L 03/14/21 04:59 Eos # (Auto) 0.0 x10^3/uL (0.0-0.2) 03/14/21 04:59 Baso # (Auto) 0.0 X10^3/uL (0.0-0.1) 03/14/21 04:59 Absolute Nucleated RBC 0.0 /100WBC 03/14/21 04:59 Sodium 143 mmol/L (136-145) 03/14/21 04:59 Corrected Sodium 144 mmol/L (136-145) 03/14/21 04:59 Potassium 4.2 mmol/L (3.5-5.1) 03/14/21 04:59 Chloride 107 mmol/L (98-107) 03/14/21 04:59 Carbon Dioxide 22.1 mmol/L (21-32) 03/14/21 04:59 BUN 36 mg/dL (7-18) H 03/14/21 04:59 Creatinine 4.33 mg/dL (0.55-1.02) H 03/14/21 04:59 Est GFR (MDRD) Af Amer 14 (>60) L 03/14/21 04:59 Est GFR (MDRD) Non-Af 11 (>60) L 03/14/21 04:59 Glucose 134 mg/dL (65-99) H 03/14/21 04:59 Calcium 8.4 mg/dL (8.5-10.1) L 03/14/21 04:59 Corrected Calcium 9.1 mg/dL (8.5-10.1) 03/14/21 04:59 Total Bilirubin 0.30 mg/dL (0.2-1.0) 03/14/21 04:59 AST 16 Units/L (15-37) 03/14/21 04:59 ALT 15 Units/L (12-78) 03/14/21 04:59 Alkaline Phosphatase 69 Units/L (46-116) 03/14/21 04:59 C-Reactive Protein 3.50 mg/L (0-3.0) H 03/14/21 04:59 Total Protein 7.9 g/dL (6.4-8.2) 03/14/21 04:59 Albumin 3.1 g/dL (3.4-5.0) L 03/14/21 04:59 Globulin 4.8 g/dL (2.5-4.5) H 03/14/21 04:59 Albumin/Globulin Ratio 0.6 Ratio (1.1-2.1) L 03/14/21 04:59 SARS CoV-2 RNA Rapid XIANG Positive (NEGATIVE) A 03/13/21 21:56 - Plan (1) SBO (small bowel obstruction) Status: Acute Plan: NG tube, hydration and sequential labs and exams. General surgery (2) COVID Status: Acute Plan: IV abx (3) HTN (hypertension) Status: Chronic Plan: Home meds (4) CAD (coronary artery disease) Status: Chronic Qualifiers: Coronary Disease-Associated Artery/Lesion type: [place] artery [place] vs. transplanted heart: [place] heart Associated angina: without angina Qualified Code(s): I25.10 - Atherosclerotic heart disease of [place] coronary artery without angina pectoris Plan: stable (5) CKD (chronic kidney disease) stage 5, GFR less than 15 ml/min Status: Chronic Plan: Hydrate and observe with follow up labs
[2021-03-14] MEDS: ZITHROMAX INJ 500 MG VIAL 250 MG in NS 250 ML IV 250 ML IV SCH (15:33)
--- NOTE | 2021-03-14 17:25 | NOTE.SOAP ---
Soap Note Note for Day of Date of Exam: 03/14/21 Subjective Data Subjective Data: Patient continues to improve. It does not appear to be symptomatic from Her covid diagnosis and I appreciate the input of the internists who have started her on steroids and antibiotics. Has passed a small amount of flatus. NG tube appears to be in the second portion of the duodenum.Approximately 300 cc's of output which is bilious. Acute abdominal series shows only probable constipation with no air fluid levels. Objective Data Temperature: 97.8 F Pulse Rate: 73 Respiratory Rate: 21 Blood Pressure: 134/78 O2 Sat by Pulse Oximetry: 93 Objective Data: Abdomen soft, benign and not distended. Assessment Assessment: Small bowel obstruction resolving, positive covid diagnosis . Plan Plan: discontinue nasogastric tube. Begin clear liquid diet. Continue treatment for positive covid diagnosis
[2021-03-14] MEDS: MELATONIN PO SCH (20:30)
[2021-03-14] MEDS ORDERED: MELATONIN PO SCH (21:00)
[2021-03-15] MEDS: DILAUDID INJ IVP PRN ×4 (03:07→21:20)
[2021-03-15] MEDS: NS 1,000 ML IV 1,000 ML IV SCH (04:00)
[2021-03-15 05:21] LABS: BASOPHILS % (AUTO) 0.1 % (0.2-1.0); HEMATOCRIT 33.6 % (36.0-47.0); HEMOGLOBIN 10.9 g/dL (12.0-16.0); LYMPHOCYTES # (AUTO) 0.9 X10^3/uL (1.3-2.9); LYMPHOCYTES % (AUTO) 9.6 % (21.0-51.0); MEAN CORPUSCULAR HEMOGLOBIN 27.3 pg (27.0-34.0); MEAN CORPUSCULAR HGB CONC 32.5 g/dL (33.0-35.0); MONOCYTES # (AUTO) 0.7 x10^3/uL (0.3-0.8); MONOCYTES % (AUTO) 7.1 % (0.0-13.0); NEUTROPHILS # (AUTO) 8.2 x10^3/uL (2.2-4.8); NEUTROPHILS % (AUTO) 83.2 % (42.0-75.0); RED CELL DISTRIBUTION WIDTH 15.3 % (11.6-16.5); WHITE BLOOD COUNT 9.8 X10^3/uL (3.6-10.0)
[2021-03-15 05:36] LABS: ALBUMIN 2.8 g/dL (3.4-5.0); CALCIUM 8.4 mg/dL (8.5-10.1); CARBON DIOXIDE 22.2 mmol/L (21-32); COR CA(FOR HYPOALB) 9.4 mg/dL (8.5-10.1); CREATININE 4.64 mg/dL (0.55-1.02); TOTAL PROTEIN 7.3 g/dL (6.4-8.2)
[2021-03-15 05:43] LABS: ABG BASE EXCESS -6.7 mmol/L (-2.0-2.0); ABG HCO3 20.2 mmol/L (22-26)
[2021-03-15 05:44] LABS: ABG ALLEN TEST POS
[2021-03-15] MEDS: CATAPRES TAB 0.2 MG PO SCH ×3 (05:50→22:10)
[2021-03-15] MEDS: MORPHINE SULFATE INJ 2 MG INJ IVP PRN (07:15)
--- NOTE | 2021-03-15 07:37 | RAD ---
HISTORYCOVID+STUDYCHEST, 1 [id number]/2022.TECHNIQUEAP view of the chestFINDINGSInterval removal of NG tube. Cardiac silhouette is borderline in size. Mediastinal contours appear normal. Similar appearance of mild scattered bilateral interstitial opacities. No definite pleural effusion or pneumothorax.IMPRESSIONSimilar mild scattered interstitial opacities can be seen with COVID 19.Electronically signed by: Isma Antoine (Mar 15, 2021 07:36:11)
[2021-03-15] MEDS: ZOFRAN INJ 4 MG VIAL IVP PRN (07:45)
[2021-03-15] MEDS: CYTOTEC PO SCH ×4 (08:10→22:10)
[2021-03-15] MEDS: ZESTRIL TAB 40 MG PO SCH (08:11)
[2021-03-15] MEDS: PEPCID TAB 40 MG PO SCH (08:11)
[2021-03-15] MEDS: VITAMIN D3 125 mcg (5,000 UNITS) PO SCH (08:11)
[2021-03-15] MEDS: PROTONIX INJ 40 MG VIAL IVP SCH ×2 (08:11→22:10)
[2021-03-15] MEDS: NORVASC TAB 10 MG PO SCH (08:11)
[2021-03-15] MEDS: LIPITOR TAB 80 MG PO SCH (08:11)
[2021-03-15] MEDS: ZITHROMAX INJ 500 MG VIAL 250 MG in NS 250 ML IV 250 ML IV SCH (08:12)
[2021-03-15] MEDS: ZINC SULFATE PO SCH ×2 (08:12→22:10)
[2021-03-15] MEDS ORDERED: PEPCID TAB 20 MG PO SCH (09:00)
[2021-03-15] MEDS ORDERED: LIPITOR TAB 80 MG PO SCH (09:00)
[2021-03-15] MEDS ORDERED: VITAMIN A PO SCH (09:00)
[2021-03-15] MEDS ORDERED: CITROMA PO ONE (09:15)
[2021-03-15] MEDS ORDERED: MIRALAX POWDER (1 DOSE 17 G) PO ONE (09:18)
[2021-03-15] MEDS: BROVANA IN SCH ×2 (09:31→21:12)
[2021-03-15] MEDS: PULMICORT NEB TX 0.5 MG NEB SCH ×2 (09:31→21:12)
[2021-03-15] MEDS: APRESOLINE TAB 10 MG PO SCH ×4 (10:22→21:30)
[2021-03-15] MEDS: LOVENOX INJ 30 MG SYR SC SCH (10:48)
--- NOTE | 2021-03-15 10:59 | PCM.PROG ---
Progress Note - Subjective Subjective: Patient is a 56 year old AAF who was admitted to surgery due to SBO r/o. Patient later tested positive for COVID 19 virus. Patient is not very symptomatic for COVID; denies SOB or any other concerns. Surgery has d/c'd NGT tube and began clear liquid diet. Patient does report some abdominal pain since starting clears; will divert this to surgery team. Patient denies any other issu es at present. - Past Medical Family Social History Past Med/Fam/Surg Hx: No changes since H&P Allergies: Allergies diphenhydramine [From Benadryl] Allergy (Verified 06/08/17 13:35) - Review of Systems ROS: No change since H&P - Vital Signs and I&O's Vital Signs: Temperature 97.9 F Pulse Rate 70 Respiratory Rate 24 Blood Pressure [Right Arm] 133/70 Blood Pressure 178/84 O2 Sat by Pulse Oximetry 97 Intake and Output: Intake & Output 03/12/21 03/13/21 03/14/21 03/15/21 23:59 23:59 23:59 23:59 Intake Total 1646 / 1646 485 / 485 Output Total 1150 / 1150 300 / 300 Balance 496 / 496 185 / 185 - Physical Exam Oriented: Normal, Time, Person, Place Eyes: Normal Ear: Normal Nose: Normal Throat: Normal Respiratory: Normal Cardiovascular: Normal : Normal Auscultation: Bowel Sounds: Normal Palpation: Normal Tenderness: Diffuse, Mild Skin: Normal Musculoskeletal: Normal Psychiatric: Normal Mood Description: Calm Affect: Normal Speech Pattern: Clear, Appropriate - Laboratory and Diagnostics Result Diagrams: 03/15/21 04:57 03/15/21 04:57 Labs: Laboratory WBC 9.8 X10^3/uL (3.6-10.0) 03/15/21 04:57 RBC 4.00 X10^6/uL (3.5-5.4) 03/15/21 04:57 Hgb 10.9 g/dL (12.0-16.0) L 03/15/21 04:57 Hct 33.6 % (36.0-47.0) L 03/15/21 04:57 MCV 84.0 fL (80.0-100.0) 03/15/21 04:57 MCH 27.3 pg (27.0-34.0) 03/15/21 04:57 MCHC 32.5 g/dL (33.0-35.0) L 03/15/21 04:57 RDW 15.3 % (11.6-16.5) 03/15/21 04:57 Plt Count 150 X10^3/uL (150.0-450.0) 03/15/21 04:57 MPV 8.0 fL (7.4-11.0) 03/15/21 04:57 Neut % (Auto) 83.2 % (42.0-75.0) H 03/15/21 04:57 Lymph % (Auto) 9.6 % (21.0-51.0) L 03/15/21 04:57 [place] % (Auto) 7.1 % (0.0-13.0) 03/15/21 04:57 Eos % (Auto) 0.0 % (0.9-2.9) L 03/15/21 04:57 Baso % (Auto) 0.1 % (0.2-1.0) L 03/15/21 04:57 Neut # (Auto) 8.2 x10^3/uL (2.2-4.8) H 03/15/21 04:57 Lymph # (Auto) 0.9 X10^3/uL (1.3-2.9) L 03/15/21 04:57 [place] # (Auto) 0.7 x10^3/uL (0.3-0.8) 03/15/21 04:57 Eos # (Auto) 0.0 x10^3/uL (0.0-0.2) 03/15/21 04:57 Baso # (Auto) 0.0 X10^3/uL (0.0-0.1) 03/15/21 04:57 Absolute Nucleated RBC 0.0 /100WBC 03/15/21 04:57 Sample Site Lr 03/15/21 05:00 ABG pH 7.260 (7.35-7.45) L 03/15/21 05:00 ABG pCO2 45.0 mmHg (35.0-45.0) 03/15/21 05:00 ABG pO2 62.0 mmHg (80.0-100.0) L 03/15/21 05:00 ABG HCO3 20.2 mmol/L (22-26) L 03/15/21 05:00 ABG O2 Saturation 87.0 % (90-100) L 03/15/21 05:00 ABG Base Excess -6.7 mmol/L (-2.0-2.0) L 03/15/21 05:00 Kemal Test Pos 03/15/21 05:00 A-a Gradient 31.0 mmHg 03/15/21 05:00 FiO2 21.0 03/15/21 05:00 Blood Gas Comments [place] well sw 03/15/21 05:00 Sodium 141 mmol/L (136-145) 03/15/21 04:57 Corrected Sodium 142 mmol/L (136-145) 03/15/21 04:57 Potassium 4.6 mmol/L (3.5-5.1) 03/15/21 04:57 Chloride 108 mmol/L (98-107) H 03/15/21 04:57 Carbon Dioxide 22.2 mmol/L (21-32) 03/15/21 04:57 BUN 44 mg/dL (7-18) H 03/15/21 04:57 Creatinine 4.64 mg/dL (0.55-1.02) H 03/15/21 04:57 Est GFR (MDRD) Af Amer 13 (>60) L 03/15/21 04:57 Est GFR (MDRD) Non-Af 10 (>60) L 03/15/21 04:57 Glucose 122 mg/dL (65-99) H 03/15/21 04:57 Calcium 8.4 mg/dL (8.5-10.1) L 03/15/21 04:57 Corrected Calcium 9.4 mg/dL (8.5-10.1) 03/15/21 04:57 Total Bilirubin 0.20 mg/dL (0.2-1.0) 03/15/21 04:57 AST 13 Units/L (15-37) L 03/15/21 04:57 ALT 17 Units/L (12-78) 03/15/21 04:57 Alkaline Phosphatase 62 Units/L (46-116) 03/15/21 04:57 C-Reactive Protein 0.90 mg/L (0-3.0) 03/15/21 04:57 Total Protein 7.3 g/dL (6.4-8.2) 03/15/21 04:57 Albumin 2.8 g/dL (3.4-5.0) L 03/15/21 04:57 Globulin 4.5 g/dL (2.5-4.5) 03/15/21 04:57 Albumin/Globulin Ratio 0.6 Ratio (1.1-2.1) L 03/15/21 04:57 SARS CoV-2 RNA Rapid XIANG Positive (NEGATIVE) A 03/13/21 21:56 - Plan (1) SBO (small bowel obstruction) Status: Acute Plan: NGT removed. Started clears. Resolving. General surgery (2) COVID Status: Acute Plan: IV abx. No steroids due to GI issues and also no pneumonia reported. (3) HTN (hypertension) Status: Chronic Plan: Home meds (4) CAD (coronary artery disease) Status: Chronic Qualifiers: Coronary Disease-Associated Artery/Lesion type: [place] artery [place] vs. transplanted heart: [place] heart Associated angina: without angina Qualified Code(s): I25.10 - Atherosclerotic heart disease of [place] coronary artery without angina pectoris Plan: stable (5) CKD (chronic kidney disease) stage 5, GFR less than 15 ml/min Status: Chronic Plan: Hydrate and observe with follow up labs
[2021-03-15] MEDS: ZOSYN VIAL 2.25 GRAMS 2.25 G in NS 100 ML IV + SPIKE MINIBAG* 100 ML IV SCH ×4 (12:00→22:10)
[2021-03-15] MEDS: MELATONIN PO SCH (22:10)
[2021-03-16] MEDS: DILAUDID INJ IVP PRN ×2 (03:15→07:07)
[2021-03-16 05:38] LABS: ALANINE AMINOTRANSFERASE 13 Units/L (12-78); ALBUMIN 2.8 g/dL (3.4-5.0); ALKALINE PHOSPHATASE 62 Units/L (46-116); ASPARTATE AMINO TRANSFERASE 12 Units/L (15-37); BASOPHILS % (AUTO) 0.2 % (0.2-1.0); BLOOD UREA NITROGEN 47 mg/dL (7-18); CALCIUM 7.9 mg/dL (8.5-10.1); CARBON DIOXIDE 25.6 mmol/L (21-32); CHLORIDE 106 mmol/L (98-107); COR CA(FOR HYPOALB) 8.9 mg/dL (8.5-10.1); CREATININE 4.73 mg/dL (0.55-1.02); HEMATOCRIT 35.3 % (36.0-47.0); HEMOGLOBIN 11.5 g/dL (12.0-16.0); LYMPHOCYTES # (AUTO) 1.1 X10^3/uL (1.3-2.9); LYMPHOCYTES % (AUTO) 9.9 % (21.0-51.0); MEAN CORPUSCULAR HEMOGLOBIN 27.2 pg (27.0-34.0); MEAN CORPUSCULAR HGB CONC 32.7 g/dL (33.0-35.0); MEAN CORPUSCULAR VOLUME 83.2 fL (80.0-100.0); MEAN PLATELET VOLUME 8.2 fL (7.4-11.0); MONOCYTES # (AUTO) 0.7 x10^3/uL (0.3-0.8); MONOCYTES % (AUTO) 6.3 % (0.0-13.0); NEUTROPHILS # (AUTO) 9.3 x10^3/uL (2.2-4.8); NEUTROPHILS % (AUTO) 83.6 % (42.0-75.0); RED BLOOD COUNT 4.25 X10^6/uL (3.5-5.4); RED CELL DISTRIBUTION WIDTH 15.2 % (11.6-16.5); SODIUM 141 mmol/L (136-145); TOTAL PROTEIN 7.2 g/dL (6.4-8.2); WHITE BLOOD COUNT 11.1 X10^3/uL (3.6-10.0); eGFR NON BLACK RACES 10 (>60)
[2021-03-16] MEDS: CATAPRES TAB 0.2 MG PO SCH ×3 (05:50→22:05)
[2021-03-16] MEDS: ZOSYN VIAL 2.25 GRAMS 2.25 G in NS 100 ML IV + SPIKE MINIBAG* 100 ML IV SCH ×3 (05:50→22:05)
[2021-03-16] MEDS: NS 1,000 ML IV 1,000 ML IV SCH (06:37)
[2021-03-16] MEDS: BROVANA IN SCH ×2 (08:12→20:24)
[2021-03-16] MEDS: PULMICORT NEB TX 0.5 MG NEB SCH ×2 (08:12→20:24)
[2021-03-16] MEDS: ZOFRAN INJ 4 MG VIAL IVP PRN ×3 (08:30→21:16)
[2021-03-16] MEDS: APRESOLINE TAB 10 MG PO SCH ×4 (09:58→21:00)
[2021-03-16] MEDS: CYTOTEC PO SCH ×4 (09:58→21:00)
[2021-03-16] MEDS: CHRONULAC PO SCH (09:58)
[2021-03-16] MEDS: LIPITOR TAB 80 MG PO SCH (09:59)
[2021-03-16] MEDS: LOVENOX INJ 30 MG SYR SC SCH (09:59)
[2021-03-16] MEDS: PEPCID TAB 20 MG PO SCH (10:01)
[2021-03-16] MEDS: NORVASC TAB 10 MG PO SCH (10:01)
[2021-03-16] MEDS: PROTONIX INJ 40 MG VIAL IVP SCH ×2 (10:02→22:05)
[2021-03-16] MEDS: ZESTRIL TAB 40 MG PO SCH (10:02)
[2021-03-16] MEDS: VITAMIN D3 125 mcg (5,000 UNITS) PO SCH (10:02)
[2021-03-16] MEDS: ZINC SULFATE PO SCH ×2 (10:02→22:05)
[2021-03-16] MEDS: ZITHROMAX INJ 500 MG VIAL 250 MG in NS 250 ML IV 250 ML IV SCH (10:02)
--- NOTE | 2021-03-16 10:15 | NOTE.SOAP ---
Soap Note Note for Day of Date of Exam: 03/15/21 Subjective Data Subjective Data: Still c/o abdominal pain and NG tube removed and still no BM. IS passing flatus . No significant symptoms of COVID despite testing positive. Objective Data Temperature: 97.9 F Pulse Rate: 66 Respiratory Rate: 15 Blood Pressure: 159/85 O2 Sat by Pulse Oximetry: 92 Objective Data: Soft benign abdomen Assessment Assessment: SBO/COVID Appears resolving. Plan Plan: Regular diet, Magnesium citrate, and Metamucil
--- NOTE | 2021-03-16 10:26 | NOTE.SOAP ---
Soap Note Note for Day of Date of Exam: 03/16/21 Subjective Data Subjective Data: No significant change , No result from Magnesium citrate Objective Data Temperature: 98.2 F Pulse Rate: 75 Respiratory Rate: 22 O2 Sat by Pulse Oximetry: 98 Objective Data: Benign, not distended abdomen Assessment Assessment: Covid/SBO Plan Plan: Acute abdominal series, lactulose
[2021-03-16] MEDS ORDERED: MORPHINE SULFATE INJ 2 MG INJ IVP ONE (11:18)
[2021-03-16] MEDS: ULTRAM PO PRN ×2 (11:22→22:05)
--- NOTE | 2021-03-16 12:10 | RAD ---
HISTORYSMALL BOWEL OBSTRUCTIONSTUDYACUTE ABDOMEN [id number]/2022 acute abdomen series. Chest radiograph from 03/15/2021.TECHNIQUEFour images, acute abdomen series.FINDINGSThe cardiac and mediastinal contours appear normal. There are mild bilateral mid to lower lung airspace and interstitial opacities. No definite pleural effusion or pneumothorax. Soft tissue attenuation limits evaluation.There is gas-filled dilated small bowel in the central abdomen and right lower quadrant measuring up to 4.4 cm. No definite pneumatosis, free air, or portal venous gas. Mild stool in the ascending colon. No suspicious abdominal calcifications.IMPRESSIONDilated small bowel in the right lower quadrant and central abdomen can be seen with enteritis and obstruction. Consider CT for further evaluation.Mild interstitial and airspace opacities in the mid to lower lungs can be seen with pulmonary edema and pneumonia.Electronically signed by: Isma Antoine (Mar 16, 2021 12:08:41)
[2021-03-16 12:13] LABS: CKMB % 2.4 % (<4); CREATINE KINASE 42 Units/L (26-192); CREATINE KINASE MB < 1.0 ng/mL (0-4.0)
[2021-03-16 19:42] LABS: CKMB % 2.7 % (<4); CREATINE KINASE 37 Units/L (26-192); CREATINE KINASE MB < 1.0 ng/mL (0-4.0)
[2021-03-16] MEDS: MELATONIN PO SCH (22:05)
[2021-03-17 02:31] LABS: BASOPHILS # (AUTO) 0.1 X10^3/uL (0.0-0.1); BASOPHILS % (AUTO) 0.6 % (0.2-1.0); HEMOGLOBIN 12.1 g/dL (12.0-16.0); LYMPHOCYTES # (AUTO) 0.7 X10^3/uL (1.3-2.9); LYMPHOCYTES % (AUTO) 7.8 % (21.0-51.0); MEAN CORPUSCULAR HEMOGLOBIN 27.3 pg (27.0-34.0); MEAN CORPUSCULAR HGB CONC 32.8 g/dL (33.0-35.0); MEAN CORPUSCULAR VOLUME 83.3 fL (80.0-100.0); MEAN PLATELET VOLUME 8.4 fL (7.4-11.0); MONOCYTES # (AUTO) 0.5 x10^3/uL (0.3-0.8); MONOCYTES % (AUTO) 5.7 % (0.0-13.0); NEUTROPHILS # (AUTO) 7.4 x10^3/uL (2.2-4.8); NEUTROPHILS % (AUTO) 85.9 % (42.0-75.0); RED BLOOD COUNT 4.45 X10^6/uL (3.5-5.4); WHITE BLOOD COUNT 8.6 X10^3/uL (3.6-10.0)
[2021-03-17] MEDS ORDERED: PHENERGAN INJ 25 MG IM PRN (02:38)
[2021-03-17 02:49] LABS: CKMB % 3.7 % (<4); CREATINE KINASE 27 Units/L (26-192); CREATINE KINASE MB < 1.0 ng/mL (0-4.0)
[2021-03-17 03:08] LABS: ALANINE AMINOTRANSFERASE 13 Units/L (12-78); ALBUMIN 2.7 g/dL (3.4-5.0); ALKALINE PHOSPHATASE 62 Units/L (46-116); ASPARTATE AMINO TRANSFERASE 12 Units/L (15-37); BLOOD UREA NITROGEN 45 mg/dL (7-18); CARBON DIOXIDE 29.1 mmol/L (21-32); CHLORIDE 106 mmol/L (98-107); CREATININE 4.64 mg/dL (0.55-1.02); SODIUM 145 mmol/L (136-145); TOTAL PROTEIN 6.6 g/dL (6.4-8.2); eGFR NON BLACK RACES 10 (>60)
[2021-03-17] MEDS: ZOSYN VIAL 2.25 GRAMS 2.25 G in NS 100 ML IV + SPIKE MINIBAG* 100 ML IV SCH ×3 (06:00→21:14)
[2021-03-17] MEDS: CATAPRES TAB 0.2 MG PO SCH ×3 (06:20→21:14)
[2021-03-17] MEDS: NS 1,000 ML IV 1,000 ML IV SCH (07:20)
--- NOTE | 2021-03-17 07:33 | RAD ---
HISTORYCOVID+STUDYCHEST, 1 [id number]/2022.TECHNIQUEAP view of the chestFINDINGSThe cardiac silhouette is stably enlarged. Mediastinal contours appear stable. Interval development of right mid to lower lung airspace opacities. No definite pleural effusion or pneumothorax. Soft tissue attenuation limits evaluation.IMPRESSIONWorsened right mid to lower lung airspace opacities consistent with worsening pneumonia.Electronically signed by: Isma Antoine (Mar 17, 2021 07:32:31)
[2021-03-17] MEDS: PULMICORT NEB TX 0.5 MG NEB SCH ×2 (08:35→21:07)
[2021-03-17] MEDS: BROVANA IN SCH ×2 (08:35→21:07)
[2021-03-17] MEDS: APRESOLINE TAB 10 MG PO SCH (09:36)
[2021-03-17] MEDS: CHRONULAC PO SCH (09:37)
[2021-03-17] MEDS: LIPITOR TAB 80 MG PO SCH (09:37)
[2021-03-17] MEDS: LOVENOX INJ 30 MG SYR SC SCH (09:37)
[2021-03-17] MEDS: ZITHROMAX INJ 500 MG VIAL 250 MG in NS 250 ML IV 250 ML IV SCH (09:37)
[2021-03-17] MEDS: CYTOTEC PO SCH ×2 (09:37→12:17)
[2021-03-17] MEDS: ZINC SULFATE PO SCH (09:38)
[2021-03-17] MEDS: PROTONIX INJ 40 MG VIAL IVP SCH ×2 (09:38→20:55)
[2021-03-17] MEDS: ZESTRIL TAB 40 MG PO SCH (09:38)
[2021-03-17] MEDS: NORVASC TAB 10 MG PO SCH (09:38)
[2021-03-17] MEDS: VITAMIN D3 125 mcg (5,000 UNITS) PO SCH (09:38)
[2021-03-17] MEDS: PEPCID TAB 20 MG PO SCH (09:38)
[2021-03-17] MEDS ORDERED: SOLU-Medrol 125 MG VIAL IVP ONE (10:27)
[2021-03-17 10:35] LABS: ABG BASE EXCESS 1.5 mmol/L (-2.0-2.0); ABG HCO3 28.1 mmol/L (22-26)
[2021-03-17 10:37] LABS: ABG ALLEN TEST POS
--- NOTE | 2021-03-17 11:24 | RAD ---
Abdomen series supine and upright with chest three viewsIndication: Follow-up small bowel obstructionCOMPARISONJan2021 radiographFINDINGSThere is cardiomegaly and worsening patchy bilateral pulmonary opacity particularly in the right lower lung and right mid/upper lobe, suggesting developing multifocal pneumonia. There is no gross free air or pneumatosis. Body habitus and attenuation with monitoring leads and support tubing obscuring detail. Dilated loops of mid abdominal small bowel are noted with relatively collapsed colon.IMPRESSION1. Persistent dilated loops small bowel suggesting persistent small bowel obstruction, similar to the prior2. Worsening multifocal pulmonary opacities, compatible with multifocal pneumonia. Follow-up to resolution.Electronically signed by: HOLLY SINGER (Mar 17, 2021 11:22:58)
[2021-03-17] MEDS: APRESOLINE INJ 20 MG VIAL IVP SCH ×2 (13:36→22:23)
[2021-03-17 15:50] LABS: ABG ALLEN TEST POS; ABG BASE EXCESS 2.3 mmol/L (-2.0-2.0); ABG HCO3 28.3 mmol/L (22-26)
--- NOTE | 2021-03-17 17:43 | PCM.PROG ---
Progress Note - Progress Note for Day of Date of Exam: 03/16/21 - Subjective Subjective: Patient is a 56 year old AAF who was admitted to surgery due to SBO r/o. Patient later tested positive for COVID 19 virus upon admission. Patient has since became symptomatic for COVID. Patient is having SOB. Patient continues to report pain to abdomen. Patient has an episode of chest pain yesterday; EKG normal. Surgery has d/c'd NGT tube and began clear liquid diet. Surgery has ordered laxatives in an attempt to promot BM; pending results. - Past Medical Family Social History Past Med/Fam/Surg Hx: No changes since H&P Allergies: Allergies diphenhydramine [From Benadryl] Allergy (Verified 06/08/17 13:35) - Review of Systems ROS: No change since H&P - Vital Signs and I&O's Vital Signs: Temperature 97.9 F Pulse Rate 90 Respiratory Rate 19 Blood Pressure [Right Arm] 133/70 Blood Pressure 135/82 O2 Sat by Pulse Oximetry 93 Intake and Output: Intake & Output 03/14/21 03/15/21 03/16/21 03/17/21 23:59 23:59 23:59 23:59 Intake Total 1646 / 1646 2175 / 2175 2037 / 2037 780 / 780 Output Total 1150 / 1150 301 / 301 602 / 602 Balance 496 / 496 1874 / 1874 1435 / 1435 780 / 780 - Physical Exam Oriented: Normal, Time, Person, Place Eyes: Normal Ear: Normal Nose: Normal Throat: Normal Respiratory: Generalized, Diminished, Rhonchi Cardiovascular: Normal : Normal Auscultation: Bowel Sounds: Decreased Palpation: Normal Tenderness: Diffuse, Moderate Skin: Normal Musculoskeletal: Normal Psychiatric: Normal Mood Description: Calm Affect: Normal Speech Pattern: Clear, Appropriate - Laboratory and Diagnostics Result Diagrams: 03/17/21 02:14 03/17/21 02:14 Labs: 03/15/21 11:11 Blood Blood Culture - Preliminary 03/15/21 11:00 Blood Blood Culture - Preliminary Laboratory WBC 8.6 X10^3/uL (3.6-10.0) 03/17/21 02:14 RBC 4.45 X10^6/uL (3.5-5.4) 03/17/21 02:14 Hgb 12.1 g/dL (12.0-16.0) 03/17/21 02:14 Hct 37.0 % (36.0-47.0) 03/17/21 02:14 MCV 83.3 fL (80.0-100.0) 03/17/21 02:14 MCH 27.3 pg (27.0-34.0) 03/17/21 02:14 MCHC 32.8 g/dL (33.0-35.0) L 03/17/21 02:14 RDW 15.0 % (11.6-16.5) 03/17/21 02:14 Plt Count 120 X10^3/uL (150.0-450.0) L 03/17/21 02:14 MPV 8.4 fL (7.4-11.0) 03/17/21 02:14 Neut % (Auto) 85.9 % (42.0-75.0) H 03/17/21 02:14 Lymph % (Auto) 7.8 % (21.0-51.0) L 03/17/21 02:14 [place] % (Auto) 5.7 % (0.0-13.0) 03/17/21 02:14 Eos % (Auto) 0.0 % (0.9-2.9) L 03/17/21 02:14 Baso % (Auto) 0.6 % (0.2-1.0) 03/17/21 02:14 Neut # (Auto) 7.4 x10^3/uL (2.2-4.8) H 03/17/21 02:14 Lymph # (Auto) 0.7 X10^3/uL (1.3-2.9) L 03/17/21 02:14 [place] # (Auto) 0.5 x10^3/uL (0.3-0.8) 03/17/21 02:14 Eos # (Auto) 0.0 x10^3/uL (0.0-0.2) 03/17/21 02:14 Baso # (Auto) 0.1 X10^3/uL (0.0-0.1) 03/17/21 02:14 Absolute Nucleated RBC 0.1 /100WBC 03/17/21 02:14 Sample Site Rr 03/17/21 15:44 ABG pH 7.370 (7.35-7.45) 03/17/21 15:44 ABG pCO2 49.0 mmHg (35.0-45.0) H 03/17/21 15:44 ABG pO2 59.0 mmHg (80.0-100.0) L 03/17/21 15:44 ABG HCO3 28.3 mmol/L (22-26) H 03/17/21 15:44 ABG O2 Saturation 89.0 % (90-100) L 03/17/21 15:44 ABG Base Excess 2.3 mmol/L (-2.0-2.0) H 03/17/21 15:44 Kemal Test Pos 03/17/21 15:44 A-a Gradient 236.0 mmHg 03/17/21 15:44 FiO2 50.0 03/17/21 15:44 Blood Gas Comments Pt stephanie well cdn 03/17/21 15:44 Sodium 145 mmol/L (136-145) 03/17/21 02:14 Corrected Sodium TNP 03/17/21 02:14 Potassium 4.3 mmol/L (3.5-5.1) 03/17/21 02:14 Chloride 106 mmol/L (98-107) 03/17/21 02:14 Carbon Dioxide 29.1 mmol/L (21-32) 03/17/21 02:14 BUN 45 mg/dL (7-18) H 03/17/21 02:14 Creatinine 4.64 mg/dL (0.55-1.02) H 03/17/21 02:14 Est GFR (MDRD) Af Amer 13 (>60) L 03/17/21 02:14 Est GFR (MDRD) Non-Af 10 (>60) L 03/17/21 02:14 Glucose 109 mg/dL (65-99) H 03/17/21 02:14 Calcium 8.0 mg/dL (8.5-10.1) L 03/17/21 02:14 Corrected Calcium 9.0 mg/dL (8.5-10.1) 03/17/21 02:14 Total Bilirubin 0.40 mg/dL (0.2-1.0) 03/17/21 02:14 AST 12 Units/L (15-37) L 03/17/21 02:14 ALT 13 Units/L (12-78) 03/17/21 02:14 Alkaline Phosphatase 62 Units/L (46-116) 03/17/21 02:14 Creatine Kinase 27 Units/L (26-192) 03/17/21 02:14 CK-MB (CK-2) < 1.0 ng/mL (0-4.0) 03/17/21 02:14 CK/CKMB % Calc 3.7 % (<4) 03/17/21 02:14 Troponin I High Sens 13.6 ng/L (4.0-60.0) 03/17/21 02:14 C-Reactive Protein 12.10 mg/L (0-3.0) H 03/16/21 05:17 Total Protein 6.6 g/dL (6.4-8.2) 03/17/21 02:14 Albumin 2.7 g/dL (3.4-5.0) L 03/17/21 02:14 Globulin 3.9 g/dL (2.5-4.5) 03/17/21 02:14 Albumin/Globulin Ratio 0.7 Ratio (1.1-2.1) L 03/17/21 02:14 SARS CoV-2 RNA Rapid XIANG Positive (NEGATIVE) A 03/13/21 21:56 - Plan (1) SBO (small bowel obstruction) Status: Acute Plan: NGT removed. Started clears. Resolving. General surgery (2) COVID Status: Acute Plan: IV abx. No steroids due to GI issues and also no pneumonia reported. (3) HTN (hypertension) Status: Chronic Plan: Home meds (4) CAD (coronary artery disease) Status: Chronic Qualifiers: Coronary Disease-Associated Artery/Lesion type: [place] artery [place] vs. transplanted heart: [place] heart Associated angina: without angina Qualified Code(s): I25.10 - Atherosclerotic heart disease of [place] coronary artery without angina pectoris Plan: stable (5) CKD (chronic kidney disease) stage 5, GFR less than 15 ml/min Status: Chronic Plan: Hydrate and observe with follow up labs (6) Pneumonia due to COVID-19 virus Status: Acute Plan: Trend CXR, ABG. Zithromax, renal dose Zosyn. Steroids. Duo nebs
--- NOTE | 2021-03-17 17:49 | PCM.PROG ---
Progress Note - Subjective Subjective: Patient is a 56 year old AAF who was admitted to surgery due to SBO r/o. Patient later tested positive for COVID 19 virus upon admission. Patient has since became symptomatic for COVID. Patient is having SOB. Patient continues to report pain to abdomen. Surgery has ordered laxatives in an attempt to promot BM; no results with mag citrate, enema, lactulose. Patient requiring high concentration of oxygen; FIO2 50% high felix. CXR reveals pneumonia, ABG reveals hypoxia. - Past Medical Family Social History Past Med/Fam/Surg Hx: No changes since H&P Allergies: Allergies diphenhydramine [From Benadryl] Allergy (Verified 06/08/17 13:35) - Review of Systems ROS: No change since H&P - Vital Signs and I&O's Vital Signs: Temperature 97.9 F Pulse Rate 90 Respiratory Rate 19 Blood Pressure [Right Arm] 133/70 Blood Pressure 135/82 O2 Sat by Pulse Oximetry 93 Intake and Output: Intake & Output 03/14/21 03/15/21 03/16/21 03/17/21 23:59 23:59 23:59 23:59 Intake Total 1646 / 1646 2175 / 2175 2037 / 2037 780 / 780 Output Total 1150 / 1150 301 / 301 602 / 602 Balance 496 / 496 1874 / 1874 1435 / 1435 780 / 780 - Physical Exam Oriented: Normal, Time, Person, Place Eyes: Normal Ear: Normal Nose: Normal Throat: Normal Respiratory: Generalized, Diminished, Rhonchi Cardiovascular: Normal : Normal Auscultation: Bowel Sounds: Decreased Palpation: Normal Tenderness: Diffuse, Moderate Skin: Normal Musculoskeletal: Normal Psychiatric: Normal Mood Description: Calm Affect: Normal Speech Pattern: Clear, Appropriate - Laboratory and Diagnostics Result Diagrams: 03/17/21 02:14 03/17/21 02:14 Labs: 03/15/21 11:11 Blood Blood Culture - Preliminary 03/15/21 11:00 Blood Blood Culture - Preliminary Laboratory WBC 8.6 X10^3/uL (3.6-10.0) 03/17/21 02:14 RBC 4.45 X10^6/uL (3.5-5.4) 03/17/21 02:14 Hgb 12.1 g/dL (12.0-16.0) 03/17/21 02:14 Hct 37.0 % (36.0-47.0) 03/17/21 02:14 MCV 83.3 fL (80.0-100.0) 03/17/21 02:14 MCH 27.3 pg (27.0-34.0) 03/17/21 02:14 MCHC 32.8 g/dL (33.0-35.0) L 03/17/21 02:14 RDW 15.0 % (11.6-16.5) 03/17/21 02:14 Plt Count 120 X10^3/uL (150.0-450.0) L 03/17/21 02:14 MPV 8.4 fL (7.4-11.0) 03/17/21 02:14 Neut % (Auto) 85.9 % (42.0-75.0) H 03/17/21 02:14 Lymph % (Auto) 7.8 % (21.0-51.0) L 03/17/21 02:14 [place] % (Auto) 5.7 % (0.0-13.0) 03/17/21 02:14 Eos % (Auto) 0.0 % (0.9-2.9) L 03/17/21 02:14 Baso % (Auto) 0.6 % (0.2-1.0) 03/17/21 02:14 Neut # (Auto) 7.4 x10^3/uL (2.2-4.8) H 03/17/21 02:14 Lymph # (Auto) 0.7 X10^3/uL (1.3-2.9) L 03/17/21 02:14 [place] # (Auto) 0.5 x10^3/uL (0.3-0.8) 03/17/21 02:14 Eos # (Auto) 0.0 x10^3/uL (0.0-0.2) 03/17/21 02:14 Baso # (Auto) 0.1 X10^3/uL (0.0-0.1) 03/17/21 02:14 Absolute Nucleated RBC 0.1 /100WBC 03/17/21 02:14 Sample Site Rr 03/17/21 15:44 ABG pH 7.370 (7.35-7.45) 03/17/21 15:44 ABG pCO2 49.0 mmHg (35.0-45.0) H 03/17/21 15:44 ABG pO2 59.0 mmHg (80.0-100.0) L 03/17/21 15:44 ABG HCO3 28.3 mmol/L (22-26) H 03/17/21 15:44 ABG O2 Saturation 89.0 % (90-100) L 03/17/21 15:44 ABG Base Excess 2.3 mmol/L (-2.0-2.0) H 03/17/21 15:44 Kemal Test Pos 03/17/21 15:44 A-a Gradient 236.0 mmHg 03/17/21 15:44 FiO2 50.0 03/17/21 15:44 Blood Gas Comments Pt stephanie well cdn 03/17/21 15:44 Sodium 145 mmol/L (136-145) 03/17/21 02:14 Corrected Sodium TNP 03/17/21 02:14 Potassium 4.3 mmol/L (3.5-5.1) 03/17/21 02:14 Chloride 106 mmol/L (98-107) 03/17/21 02:14 Carbon Dioxide 29.1 mmol/L (21-32) 03/17/21 02:14 BUN 45 mg/dL (7-18) H 03/17/21 02:14 Creatinine 4.64 mg/dL (0.55-1.02) H 03/17/21 02:14 Est GFR (MDRD) Af Amer 13 (>60) L 03/17/21 02:14 Est GFR (MDRD) Non-Af 10 (>60) L 03/17/21 02:14 Glucose 109 mg/dL (65-99) H 03/17/21 02:14 Calcium 8.0 mg/dL (8.5-10.1) L 03/17/21 02:14 Corrected Calcium 9.0 mg/dL (8.5-10.1) 03/17/21 02:14 Total Bilirubin 0.40 mg/dL (0.2-1.0) 03/17/21 02:14 AST 12 Units/L (15-37) L 03/17/21 02:14 ALT 13 Units/L (12-78) 03/17/21 02:14 Alkaline Phosphatase 62 Units/L (46-116) 03/17/21 02:14 Creatine Kinase 27 Units/L (26-192) 03/17/21 02:14 CK-MB (CK-2) < 1.0 ng/mL (0-4.0) 03/17/21 02:14 CK/CKMB % Calc 3.7 % (<4) 03/17/21 02:14 Troponin I High Sens 13.6 ng/L (4.0-60.0) 03/17/21 02:14 C-Reactive Protein 12.10 mg/L (0-3.0) H 03/16/21 05:17 Total Protein 6.6 g/dL (6.4-8.2) 03/17/21 02:14 Albumin 2.7 g/dL (3.4-5.0) L 03/17/21 02:14 Globulin 3.9 g/dL (2.5-4.5) 03/17/21 02:14 Albumin/Globulin Ratio 0.7 Ratio (1.1-2.1) L 03/17/21 02:14 SARS CoV-2 RNA Rapid XIANG Positive (NEGATIVE) A 03/13/21 21:56 - Plan (1) SBO (small bowel obstruction) Status: Acute Plan: NGT removed. Started clears. Resolving. General surgery (2) COVID Status: Acute Plan: IV abx. No steroids due to GI issues and also no pneumonia reported. (3) HTN (hypertension) Status: Chronic Plan: Home meds (4) CAD (coronary artery disease) Status: Chronic Qualifiers: Coronary Disease-Associated Artery/Lesion type: [place] artery [place] vs. transplanted heart: [place] heart Associated angina: without angina Qualified Code(s): I25.10 - Atherosclerotic heart disease of [place] coronary artery without angina pectoris Plan: stable (5) CKD (chronic kidney disease) stage 5, GFR less than 15 ml/min Status: Chronic Plan: Hydrate and observe with follow up labs (6) Pneumonia due to COVID-19 virus Status: Acute Plan: Trend CXR, ABG. Zithromax, renal dose Zosyn. Steroids. Duo nebs
[2021-03-17] MEDS ORDERED: SOLU-Medrol 125 MG VIAL ONE (19:45)
[2021-03-17] MEDS: MELATONIN PO SCH (20:55)
[2021-03-17] MEDS: SOLU-Medrol 125 MG VIAL IVP SCH (21:14)
--- NOTE | 2021-03-17 22:21 | NOTE.SOAP ---
Soap Note Note for Day of Date of Exam: 03/17/21 Subjective Data Subjective Data: Patient admitted with abdominal pain and had initial CT scan consistent with possible small bowel obstruction. Treated initially with naso- gastric tube which was discontinued. Shortly after admission for small bowel obstruction was diagnosed with positive Covid. Has continued to complain of abdominal pain and has had no further nausea or vomiting but has only sparingly had flatus. The patient has had continued deterioration due to with increasing right lower lobe infiltrate and is being treated for pneumonia. Yesterday the patient had complained of chest pain and EKGs were consistent with possible ST- elevation in the inferior leads which resolved. Subsequent cardiac CK-MB and troponins have been negative. Objective Data Temperature: 99.7 F Pulse Rate: 66 Respiratory Rate: 19 Blood Pressure: 116/70 O2 Sat by Pulse Oximetry: 91 Objective Data: Patient continues to not be very active and appears ill. Decreased breath sounds bilaterally especially right lower lobe. Abdomen is not distended on exam and is not tender. WBC=8.6 Hgb= 12.1,Platlets 120 k, Cr=4.64, BUN=45, CXR- Increasing infiltrates RLL and RML, Acute abdominal series- dilated small bowel read as possible SBO but i am not in total agreement . Assessment Assessment: 1. COVID - Treat as per hospitalist with antibiotics, steroids 2. SBO - Right now would continue to observe especially in light of worsening respiratory status and paucity of physical findngs 3. Chronic renal failure - Cr=4.64 , near what it was on admission. High risk of further deterioration 4. Chest pain. No consistent objective findings suggesting myocardial ischemia. Plan Plan: Continue to treat COVID and will observe her abdomen. If surgery were required in this setting risks of poor outcome would be increased.
[2021-03-18] MEDS: APRESOLINE INJ 20 MG VIAL IVP SCH ×3 (03:04→15:33)
[2021-03-18] MEDS: NS 1,000 ML IV 1,000 ML IV SCH (04:17)
[2021-03-18 05:34] LABS: BASOPHILS % (AUTO) 0.1 % (0.2-1.0); HEMATOCRIT 29.5 % (36.0-47.0); HEMOGLOBIN 9.6 g/dL (12.0-16.0); LYMPHOCYTES # (AUTO) 0.6 X10^3/uL (1.3-2.9); LYMPHOCYTES % (AUTO) 6.6 % (21.0-51.0); MEAN CORPUSCULAR HEMOGLOBIN 27.2 pg (27.0-34.0); MEAN CORPUSCULAR HGB CONC 32.6 g/dL (33.0-35.0); MEAN CORPUSCULAR VOLUME 83.6 fL (80.0-100.0); MONOCYTES # (AUTO) 0.2 x10^3/uL (0.3-0.8); MONOCYTES % (AUTO) 1.9 % (0.0-13.0); NEUTROPHILS # (AUTO) 7.6 x10^3/uL (2.2-4.8); NEUTROPHILS % (AUTO) 91.4 % (42.0-75.0); RED BLOOD COUNT 3.53 X10^6/uL (3.5-5.4); WHITE BLOOD COUNT 8.3 X10^3/uL (3.6-10.0)
[2021-03-18 05:43] LABS: ABG BASE EXCESS 2.3 mmol/L (-2.0-2.0); ABG HCO3 29.1 mmol/L (22-26)
[2021-03-18 05:57] LABS: ALBUMIN 2.2 g/dL (3.4-5.0); CALCIUM 8.5 mg/dL (8.5-10.1); CARBON DIOXIDE 26.7 mmol/L (21-32); COR CA(FOR HYPOALB) 9.9 mg/dL (8.5-10.1); CREATININE 4.98 mg/dL (0.55-1.02); TOTAL PROTEIN 6.6 g/dL (6.4-8.2)
[2021-03-18] MEDS: CATAPRES TAB 0.2 MG PO SCH ×2 (06:10→14:31)
[2021-03-18] MEDS: SOLU-Medrol 125 MG VIAL IVP SCH ×2 (06:10→14:31)
[2021-03-18] MEDS: ZOSYN VIAL 2.25 GRAMS 2.25 G in NS 100 ML IV + SPIKE MINIBAG* 100 ML IV SCH ×2 (06:10→14:32)
[2021-03-18 06:16] LABS: PLATELET MORPHOLOGY COMMENT NORMAL (NORMAL)
--- NOTE | 2021-03-18 06:30 | RAD ---
HISTORYCOVID+STUDYCHEST, 1 VIEWCOMPARISONOne day prior.TECHNIQUEAP view of the chestFINDINGSThe cardiac and mediastinal contours appear stable. No significant change in right worse than left lung airspace opacities. No definite pleural effusion or pneumothorax. Soft tissue attenuation limits evaluation.IMPRESSIONNo significant change in right worse than left lung pneumonia.Electronically signed by: Isma Antoine (Mar 18, 2021 06:28:59)
[2021-03-18] MEDS: BROVANA IN SCH ×2 (07:42→21:00)
[2021-03-18] MEDS: PULMICORT NEB TX 0.5 MG NEB SCH ×2 (07:42→21:00)
[2021-03-18] MEDS: CHRONULAC PO SCH (08:28)
[2021-03-18] MEDS: LIPITOR TAB 80 MG PO SCH (08:31)
[2021-03-18] MEDS: ZESTRIL TAB 40 MG PO SCH (08:31)
[2021-03-18] MEDS: NORVASC TAB 10 MG PO SCH (08:32)
[2021-03-18] MEDS: LOVENOX INJ 30 MG SYR SC SCH (08:32)
[2021-03-18] MEDS: ZITHROMAX INJ 500 MG VIAL 250 MG in NS 250 ML IV 250 ML IV SCH (08:32)
[2021-03-18] MEDS: PROTONIX INJ 40 MG VIAL IVP SCH (08:32)
[2021-03-18] MEDS: PEPCID TAB 20 MG PO SCH (08:32)
[2021-03-18 08:47] LABS: ABG ALLEN TEST POS
--- NOTE | 2021-03-18 11:12 | PCM.PROG ---
Progress Note - Subjective Subjective: Patient is a 56 year old AAF who was admitted to surgery due to SBO r/o. Patient later tested positive for COVID 19 virus upon admission. Patient has since became symptomatic for COVID. Patient is having SOB. Patient continues to report pain to abdomen. Surgery has ordered laxatives in an attempt to promot BM; no results with mag citrate, enema, lactulose. Patient is currently t olerating small amounts of liquid and food without vomiting. Patient requiring high concentration of oxygen; FIO2 50% high felix. CXR reveals pneumonia, ABG reveals hypoxia. No mjor changes in condition. - Past Medical Family Social History Past Med/Fam/Surg Hx: No changes since H&P Allergies: Allergies diphenhydramine [From Benadryl] Allergy (Verified 06/08/17 13:35) - Review of Systems ROS: No change since H&P - Vital Signs and I&O's Vital Signs: Temperature 98.2 F Pulse Rate 73 Respiratory Rate 22 Blood Pressure [Right Arm] 133/70 Blood Pressure 151/85 O2 Sat by Pulse Oximetry 91 Intake and Output: Intake & Output 03/15/21 03/16/21 03/17/21 03/18/21 23:59 23:59 23:59 23:59 Intake Total 2175 / 2175 2037 / 2037 1321 / 1321 345 / 345 Output Total 301 / 301 602 / 602 Balance 1874 / 1874 1435 / 1435 1321 / 1321 345 / 345 - Physical Exam Oriented: Normal, Time, Person, Place Eyes: Normal Ear: Normal Nose: Normal Throat: Normal Respiratory: Generalized, Diminished, Rhonchi Cardiovascular: Normal : Normal Auscultation: Bowel Sounds: Decreased Palpation: Normal Tenderness: Diffuse, Moderate Skin: Normal Musculoskeletal: Normal Psychiatric: Normal Mood Description: Calm Affect: Normal Speech Pattern: Clear, Appropriate - Laboratory and Diagnostics Result Diagrams: 03/18/21 04:19 03/18/21 04:19 Labs: 03/15/21 11:11 Blood Blood Culture - Preliminary 03/15/21 11:00 Blood Blood Culture - Preliminary Laboratory WBC 8.3 X10^3/uL (3.6-10.0) 03/18/21 04:19 RBC 3.53 X10^6/uL (3.5-5.4) 03/18/21 04:19 Hgb 9.6 g/dL (12.0-16.0) L D 03/18/21 04:19 Hct 29.5 % (36.0-47.0) L 03/18/21 04:19 MCV 83.6 fL (80.0-100.0) 03/18/21 04:19 MCH 27.2 pg (27.0-34.0) 03/18/21 04:19 MCHC 32.6 g/dL (33.0-35.0) L 03/18/21 04:19 RDW 15.0 % (11.6-16.5) 03/18/21 04:19 Plt Count 104 X10^3/uL (150.0-450.0) L 03/18/21 04:19 Plt Count Comment Decreased (ADEQUATE) A 03/18/21 04:19 MPV 9.0 fL (7.4-11.0) 03/18/21 04:19 Neut % (Auto) 91.4 % (42.0-75.0) H 03/18/21 04:19 Lymph % (Auto) 6.6 % (21.0-51.0) L 03/18/21 04:19 [place] % (Auto) 1.9 % (0.0-13.0) 03/18/21 04:19 Eos % (Auto) 0.0 % (0.9-2.9) L 03/18/21 04:19 Baso % (Auto) 0.1 % (0.2-1.0) L 03/18/21 04:19 Neut # (Auto) 7.6 x10^3/uL (2.2-4.8) H 03/18/21 04:19 Lymph # (Auto) 0.6 X10^3/uL (1.3-2.9) L 03/18/21 04:19 [place] # (Auto) 0.2 x10^3/uL (0.3-0.8) L 03/18/21 04:19 Eos # (Auto) 0.0 x10^3/uL (0.0-0.2) 03/18/21 04:19 Baso # (Auto) 0.0 X10^3/uL (0.0-0.1) 03/18/21 04:19 Absolute Nucleated RBC 0.0 /100WBC 03/18/21 04:19 Total Counted 100 03/18/21 04:19 Neutrophils % (Manual) 94 % (39-76) H 03/18/21 04:19 Lymphocytes % (Manual) 6 % (13-43) L 03/18/21 04:19 Plt Morphology Comment Normal (NORMAL) 03/18/21 04:19 RBC Morphology Normal (NORMAL) 03/18/21 04:19 Sample Site Rr 03/18/21 05:43 ABG pH 7.340 (7.35-7.45) L 03/18/21 05:43 ABG pCO2 54.0 mmHg (35.0-45.0) H* 03/18/21 05:43 ABG pO2 50.0 mmHg (80.0-100.0) L 03/18/21 05:43 ABG HCO3 29.1 mmol/L (22-26) H 03/18/21 05:43 ABG O2 Saturation 82.0 % (90-100) L* 03/18/21 05:43 ABG Base Excess 2.3 mmol/L (-2.0-2.0) H 03/18/21 05:43 Kemal Test Pos 03/18/21 05:43 A-a Gradient 239.0 mmHg 03/18/21 05:43 FiO2 50.0 03/18/21 05:43 Blood Gas Comments Pt [facility] 03/18/21 05:43 Sodium 144 mmol/L (136-145) 03/18/21 04:19 Corrected Sodium 145 mmol/L (136-145) 03/18/21 04:19 Potassium 4.1 mmol/L (3.5-5.1) 03/18/21 04:19 Chloride 109 mmol/L (98-107) H 03/18/21 04:19 Carbon Dioxide 26.7 mmol/L (21-32) 03/18/21 04:19 BUN 54 mg/dL (7-18) H 03/18/21 04:19 Creatinine 4.98 mg/dL (0.55-1.02) H 03/18/21 04:19 Est GFR (MDRD) Af Amer 12 (>60) L 03/18/21 04:19 Est GFR (MDRD) Non-Af 10 (>60) L 03/18/21 04:19 Glucose 149 mg/dL (65-99) H 03/18/21 04:19 Calcium 8.5 mg/dL (8.5-10.1) 03/18/21 04:19 Corrected Calcium 9.9 mg/dL (8.5-10.1) 03/18/21 04:19 Total Bilirubin 0.40 mg/dL (0.2-1.0) 03/18/21 04:19 AST 9 Units/L (15-37) L 03/18/21 04:19 ALT 11 Units/L (12-78) L 03/18/21 04:19 Alkaline Phosphatase 46 Units/L (46-116) 03/18/21 04:19 Creatine Kinase 27 Units/L (26-192) 03/17/21 02:14 CK-MB (CK-2) < 1.0 ng/mL (0-4.0) 03/17/21 02:14 CK/CKMB % Calc 3.7 % (<4) 03/17/21 02:14 Troponin I High Sens 13.6 ng/L (4.0-60.0) 03/17/21 02:14 C-Reactive Protein 12.10 mg/L (0-3.0) H 03/16/21 05:17 Total Protein 6.6 g/dL (6.4-8.2) 03/18/21 04:19 Albumin 2.2 g/dL (3.4-5.0) L 03/18/21 04:19 Globulin 4.4 g/dL (2.5-4.5) 03/18/21 04:19 Albumin/Globulin Ratio 0.5 Ratio (1.1-2.1) L 03/18/21 04:19 SARS CoV-2 RNA Rapid XIANG Positive (NEGATIVE) A 03/13/21 21:56 - Plan (1) SBO (small bowel obstruction) Status: Acute Plan: NGT removed. Tolerating food and liquids po. Resolving. General surgery (2) COVID Status: Acute Plan: IV abx. IV Steroids (3) HTN (hypertension) Status: Chronic Plan: Home meds (4) CAD (coronary artery disease) Status: Chronic Qualifiers: Coronary Disease-Associated Artery/Lesion type: [place] artery [place] vs. transplanted heart: [place] heart Associated angina: without angina Qualified Code(s): I25.10 - Atherosclerotic heart disease of [place] coronary artery without angina pectoris Plan: History of heart cath approximately 2013. Unknown whether she had stents placed but does report a blockage. stable (5) CKD (chronic kidney disease) stage 5, GFR less than 15 ml/min Status: Chronic Plan: Hydrate and observe with follow up labs (6) Pneumonia due to COVID-19 virus Status: Acute Plan: Trend CXR, ABG. Zithromax, renal dose Zosyn. Steroids. Duo nebs (7) GERD (gastroesophageal reflux disease) Status: Acute Plan: IV protonix, malox prn
[2021-03-18] MEDS: ULTRAM PO PRN (11:53)
[2021-03-18] MEDS ORDERED: APRESOLINE INJ 20 MG VIAL IVP ONE (20:00)
[2021-03-18] MEDS ORDERED: BROVANA IN ONE (21:00)
[2021-03-18] MEDS ORDERED: PROTONIX INJ 40 MG VIAL IVP ONE (21:00)
[2021-03-18] MEDS ORDERED: PULMICORT NEB TX 0.5 MG NEB ONE (21:00)
[2021-03-18] MEDS ORDERED: CATAPRES TAB 0.2 MG PO ONE (22:00)
[2021-03-19] MEDS ORDERED: APRESOLINE INJ 20 MG VIAL IVP ONE ×2 (02:00→08:00)
[2021-03-19] MEDS ORDERED: ZOSYN VIAL 2.25 GRAMS IV ONE ×2 (06:00→14:00)
[2021-03-19] MEDS ORDERED: SOLU-Medrol 125 MG VIAL IVP ONE ×2 (06:00→09:00)
[2021-03-19] MEDS ORDERED: PROTONIX INJ 40 MG VIAL IVP ONE (09:00)
[2021-03-19] MEDS ORDERED: PEPCID TAB 20 MG PO ONE (09:00)
[2021-03-19] MEDS ORDERED: LIPITOR TAB 40 MG PO ONE (09:00)
[2021-03-19] MEDS ORDERED: ZITHROMAX INJ 500 MG VIAL IV ONE (09:00)
[2021-03-19] MEDS ORDERED: LOVENOX INJ 30 MG SYR SC ONE (09:00)
[2021-03-19] MEDS ORDERED: CHRONULAC PO ONE (09:00)
[2021-03-19] MEDS ORDERED: ZESTRIL TAB 40 MG PO ONE (09:00)
[2021-03-19] MEDS ORDERED: NORVASC TAB 10 MG PO ONE (09:00)
[2021-03-19] MEDS ORDERED: PULMICORT NEB TX 0.5 MG NEB ONE (09:35)
[2021-03-19] MEDS ORDERED: BROVANA IN ONE (09:35)
[2021-03-19] MEDS ORDERED: CATAPRES-TTS-2 TD SCH (12:00)
[2021-03-19 13:57] LABS: ALBUMIN 2.4 g/dL (3.4-5.0); CALCIUM 8.9 mg/dL (8.5-10.1); COR CA(FOR HYPOALB) 10.2 mg/dL (8.5-10.1); CREATININE 4.54 mg/dL (0.55-1.02); TOTAL PROTEIN 6.8 g/dL (6.4-8.2)
[2021-03-19 14:01] LABS: BASOPHILS % (AUTO) 0 % (0.2-1.0); HEMATOCRIT 30.6 % (36.0-47.0); HEMOGLOBIN 9.8 g/dL (12.0-16.0); LYMPHOCYTES # (AUTO) 0.6 X10^3/uL (1.3-2.9); LYMPHOCYTES % (AUTO) 4.2 % (21.0-51.0); MEAN CORPUSCULAR HEMOGLOBIN 26.8 pg (27.0-34.0); MEAN CORPUSCULAR VOLUME 83.9 fL (80.0-100.0); MEAN PLATELET VOLUME 9.1 fL (7.4-11.0); MONOCYTES # (AUTO) 0.4 x10^3/uL (0.3-0.8); MONOCYTES % (AUTO) 2.6 % (0.0-13.0); NEUTROPHILS # (AUTO) 13.3 x10^3/uL (2.2-4.8); NEUTROPHILS % (AUTO) 93.2 % (42.0-75.0); RED BLOOD COUNT 3.64 X10^6/uL (3.5-5.4); RED CELL DISTRIBUTION WIDTH 15.6 % (11.6-16.5); WHITE BLOOD COUNT 14.3 X10^3/uL (3.6-10.0)
[2021-03-19 14:02] LABS: HYPOCHROMASIA SLIGHT; PLATELET MORPHOLOGY COMMENT NORMAL (NORMAL)
--- NOTE | 2021-03-19 14:18 | RAD ---
HISTORYsob.brcovidSTUDYCHEST, 1 VIEWCOMPARISONNone availableFINDINGSThe trachea is midline. Heart size is enlarged. Patchy opacities are noted within the right greater than left lung bases, opacities right lung base appears mildly improved compared to prior examination. No pleural effusion. No acute osseous abnormality.IMPRESSIONMultifocal pneumonia with stable to mildly improved aeration within the right lung base.Electronically signed by: SOO MEZA (Mar 19, 2021 14:17:07)
[2021-03-19] MEDS: APRESOLINE INJ 20 MG VIAL IVP SCH ×4 (14:28→21:26)
[2021-03-19] MEDS: SOLU-Medrol 125 MG VIAL IVP SCH ×3 (14:28→21:27)
[2021-03-19] MEDS: ZOSYN VIAL 2.25 GRAMS 2.25 G in NS 100 ML IV + SPIKE MINIBAG* 100 ML IV SCH ×4 (14:28→21:27)
[2021-03-19] MEDS: CHLORTHALIDONE PO SCH (15:01)
[2021-03-19] MEDS: MELATONIN PO SCH ×2 (15:42→21:28)
[2021-03-19] MEDS: PROTONIX INJ 40 MG VIAL IVP SCH ×2 (15:42→21:27)
[2021-03-19] MEDS: LIPITOR TAB 80 MG PO SCH (15:43)
[2021-03-19] MEDS: CHRONULAC PO SCH (15:43)
[2021-03-19] MEDS: NORVASC TAB 10 MG PO SCH (15:44)
[2021-03-19] MEDS: ZITHROMAX INJ 500 MG VIAL 250 MG in NS 250 ML IV 250 ML IV SCH (15:44)
[2021-03-19] MEDS: PEPCID TAB 20 MG PO SCH (15:44)
[2021-03-19] MEDS: NS 1,000 ML IV 1,000 ML IV SCH (15:44)
[2021-03-19] MEDS: ZESTRIL TAB 40 MG PO SCH (15:44)
[2021-03-19] MEDS: LOVENOX INJ 30 MG SYR SC SCH (15:44)
--- NOTE | 2021-03-19 16:37 | NOTE.SOAP ---
Soap Note Note for Day of Date of Exam: 03/18/21 Subjective Data Subjective Data: This note is for yesterday March 17 2021 .The computer system was off for maintenance before I could get the note written yesterday .Yesterday shee had a large bowel movement and abdominal pain is much better and overall she is much improved. Objective Data Temperature: 99.7 F Pulse Rate: 91 Respiratory Rate: 15 Blood Pressure: 170/91 O2 Sat by Pulse Oximetry: 87 Assessment Assessment: 1) SBO resolved 2) Covid with RLL pneumonia - continuous antibiotics and steroids and supplemental oxygen Plan Plan: At this time the bowel obstruction /ileus is resolved and her main problem is the COVID diagnosis. I will transfer primary responsibility for this patient to the medicine service ( ANANYA Dunne ) and I will continue to follow as a farm consultant
--- NOTE | 2021-03-19 16:44 | NOTE.SOAP ---
Soap Note Note for Day of Date of Exam: 03/19/21 Subjective Data Subjective Data: Subjectively continues to improve. Taking regular diet and continues to have bowel movements. Objective Data Temperature: 99.7 F Pulse Rate: 91 Respiratory Rate: 15 Blood Pressure: 170/91 O2 Sat by Pulse Oximetry: 87 Objective Data: Benign abdomen . Much more alert today. Assessment Assessment: SBO- resolved Plan Plan: Continues to improve from Covid pneumonia.
--- NOTE | 2021-03-19 17:25 | PCM.PROG ---
Progress Note Progress Note for Day of Date of Exam: 03/19/21 Subjective Subjective: Patient is a 56 year old AAF who was admitted to surgery due to SBO r/o. Patient later tested positive for COVID 19 virus upon admission. Patient has since became symptomatic for COVID. Patient is having SOB. Patient continues to report pain to abdomen. Surgery has ordered laxatives in an attempt to promot BM; no results with mag citrate, enema, lactulose. Patient is currently tolerating small amounts of liquid and food without vomiting. Patient requiring high concentration of oxygen; FIO2 40% high felix with O2 Sat of 92%. CXR reveals pneumonia, ABG reveals hypoxia. No major changes in condition. Past Medical Family Social History Past Med/Fam/Surg Hx: No changes since H&P Allergies: Allergies diphenhydramine [From Benadryl] Allergy (Verified 06/08/17 13:35) Review of Systems ROS: No change since H&P Vital Signs and I&O's Vital Signs: Temperature 99.7 F Pulse Rate 73 Respiratory Rate 27 Blood Pressure [Right Arm] 133/70 Blood Pressure 168/87 O2 Sat by Pulse Oximetry 92 Intake and Output: Intake & Output 03/17/21 03/18/21 03/19/21 03/20/21 11:59 11:59 11:59 11:59 Intake Total 1867 / 1867 1386 / 1386 1244 / 1244 558 / 558 Output Total 602 / 602 Balance 1265 / 1265 1386 / 1386 1244 / 1244 558 / 558 Physical Exam Oriented: Normal, Time, Person and Place Eyes: Normal Ear: Normal Nose: Normal Throat: Normal Respiratory: Generalized, Diminished and Rhonchi Cardiovascular: Normal : Normal Auscultation: Bowel Sounds: Decreased Tenderness: Diffuse and Moderate Skin: Normal Musculoskeletal: Normal Psychiatric: Normal Mood Description: Calm Affect: Normal Speech Pattern: Clear and Appropriate Laboratory and Diagnostics Result Diagrams: 03/19/21 05:27 03/19/21 05:27 Labs: 03/15/21 11:11 Blood Blood Culture - Preliminary 03/15/21 11:00 Blood Blood Culture - Preliminary Laboratory WBC 14.3 X10^3/uL (3.6-10.0) H 03/19/21 05:27 RBC 3.64 X10^6/uL (3.5-5.4) 03/19/21 05:27 Hgb 9.8 g/dL (12.0-16.0) L 03/19/21 05:27 Hct 30.6 % (36.0-47.0) L 03/19/21 05:27 MCV 83.9 fL (80.0-100.0) 03/19/21 05:27 MCH 26.8 pg (27.0-34.0) L 03/19/21 05:27 MCHC 32.0 g/dL (33.0-35.0) L 03/19/21 05:27 RDW 15.6 % (11.6-16.5) 03/19/21 05:27 Plt Count 133 X10^3/uL (150.0-450.0) L 03/19/21 05:27 Plt Count Comment Decreased (ADEQUATE) A 03/19/21 05:27 MPV 9.1 fL (7.4-11.0) 03/19/21 05:27 Neut % (Auto) 93.2 % (42.0-75.0) H 03/19/21 05:27 Lymph % (Auto) 4.2 % (21.0-51.0) L 03/19/21 05:27 [place] % (Auto) 2.6 % (0.0-13.0) 03/19/21 05:27 Eos % (Auto) 0.0 % (0.9-2.9) L 03/19/21 05:27 Baso % (Auto) 0 % (0.2-1.0) L 03/19/21 05:27 Neut # (Auto) 13.3 x10^3/uL (2.2-4.8) H 03/19/21 05:27 Lymph # (Auto) 0.6 X10^3/uL (1.3-2.9) L 03/19/21 05:27 [place] # (Auto) 0.4 x10^3/uL (0.3-0.8) 03/19/21 05:27 Eos # (Auto) 0.0 x10^3/uL (0.0-0.2) 03/19/21 05:27 Baso # (Auto) 0.0 X10^3/uL (0.0-0.1) 03/19/21 05:27 Absolute Nucleated RBC 0.1 /100WBC 03/19/21 05:27 Total Counted 100 03/19/21 05:27 Neutrophils % (Manual) 91 % (39-76) H 03/19/21 05:27 Lymphocytes % (Manual) 8 % (13-43) L 03/19/21 05:27 Monocytes % (Manual) 1 % (4-9) L 03/19/21 05:27 Plt Morphology Comment Normal (NORMAL) 03/19/21 05:27 RBC Morphology Abnormal (NORMAL) A 03/19/21 05:27 Hypochromasia Slight A 03/19/21 05:27 Sample Site Rr 03/18/21 05:43 ABG pH 7.340 (7.35-7.45) L 03/18/21 05:43 ABG pCO2 54.0 mmHg (35.0-45.0) H* 03/18/21 05:43 ABG pO2 50.0 mmHg (80.0-100.0) L 03/18/21 05:43 ABG HCO3 29.1 mmol/L (22-26) H 03/18/21 05:43 ABG O2 Saturation 82.0 % (90-100) L* 03/18/21 05:43 ABG Base Excess 2.3 mmol/L (-2.0-2.0) H 03/18/21 05:43 Kemal Test Pos 03/18/21 05:43 A-a Gradient 239.0 mmHg 03/18/21 05:43 FiO2 50.0 03/18/21 05:43 Blood Gas Comments Pt [facility] 03/18/21 05:43 Sodium 143 mmol/L (136-145) 03/19/21 05:27 Corrected Sodium 144 mmol/L (136-145) 03/19/21 05:27 Potassium 4.3 mmol/L (3.5-5.1) 03/19/21 05:27 Chloride 110 mmol/L (98-107) H 03/19/21 05:27 Carbon Dioxide 22.0 mmol/L (21-32) 03/19/21 05:27 BUN 58 mg/dL (7-18) H 03/19/21 05:27 Creatinine 4.54 mg/dL (0.55-1.02) H 03/19/21 05:27 Est GFR (MDRD) Af Amer 13 (>60) L 03/19/21 05:27 Est GFR (MDRD) Non-Af 11 (>60) L 03/19/21 05:27 Glucose 134 mg/dL (65-99) H 03/19/21 05:27 Calcium 8.9 mg/dL (8.5-10.1) 03/19/21 05:27 Corrected Calcium 10.2 mg/dL (8.5-10.1) H 03/19/21 05:27 Total Bilirubin 0.30 mg/dL (0.2-1.0) 03/19/21 05:27 AST 10 Units/L (15-37) L 03/19/21 05:27 ALT 10 Units/L (12-78) L 03/19/21 05:27 Alkaline Phosphatase 48 Units/L (46-116) 03/19/21 05:27 Creatine Kinase 27 Units/L (26-192) 03/17/21 02:14 CK-MB (CK-2) < 1.0 ng/mL (0-4.0) 03/17/21 02:14 CK/CKMB % Calc 3.7 % (<4) 03/17/21 02:14 Troponin I High Sens 13.6 ng/L (4.0-60.0) 03/17/21 02:14 C-Reactive Protein 12.10 mg/L (0-3.0) H 03/16/21 05:17 Total Protein 6.8 g/dL (6.4-8.2) 03/19/21 05:27 Albumin 2.4 g/dL (3.4-5.0) L 03/19/21 05:27 Globulin 4.4 g/dL (2.5-4.5) 03/19/21 05:27 Albumin/Globulin Ratio 0.5 Ratio (1.1-2.1) L 03/19/21 05:27 SARS CoV-2 RNA Rapid XIANG Positive (NEGATIVE) A 03/13/21 21:56 Radiology Reviewed: Yes Plan (1) SBO (small bowel obstruction): Status: Acute Narrative Support Text: Resolved. Plan: NGT removed Tolerating food and liquids po Resolving General surgery (2) COVID: Status: Acute Plan: IV abx IV Steroids (3) HTN (hypertension): Status: Chronic Narrative Support Text: BP not controlled. Plan: Home meds. Add Chlorthalidone 25 mg daily. (4) CAD (coronary artery disease): Status: Chronic Qualifiers: Associated angina: without angina Coronary Disease-Associated [place]/Lesion type: [place] artery [place] vs. transplanted heart: [place] heart Qualified Code(s): I25.10 - Atherosclerotic heart disease of [place] coronary artery without angina pectoris Plan: History of heart cath approximately 2013 Unknown whether she had stents placed but does report a blockage stable (5) CKD (chronic kidney disease) stage 5, GFR less than 15 ml/min: Status: Chronic Plan: Hydrate and observe with follow up labs (6) Pneumonia due to COVID-19 virus: Status: Acute Plan: Trend CXR, ABG Zithromax, renal dose Zosyn Steroids Duo nebs (7) GERD (gastroesophageal reflux disease): Status: Acute Plan: IV protonix, malox prn
[2021-03-19 18:14] LABS: ABG ALLEN TEST POS; ABG BASE EXCESS -1.3 mmol/L (-2.0-2.0); ABG HCO3 24.8 mmol/L (22-26)
[2021-03-19] MEDS: BROVANA IN SCH (20:25)
[2021-03-19] MEDS: PULMICORT NEB TX 0.5 MG NEB SCH (20:25)
[2021-03-19] MEDS ORDERED: APRESOLINE TAB 25 MG ONE (22:07)
[2021-03-19] MEDS ORDERED: CATAPRES-TTS-3 TD ONE (22:08)
[2021-03-19] MEDS: APRESOLINE TAB 25 MG PO SCH (22:17)
[2021-03-19] MEDS ORDERED: CATAPRES-TTS-3 TD SCH (23:00)
[2021-03-19] MEDS: ZOFRAN INJ 4 MG VIAL IVP PRN (23:20)
[2021-03-20] MEDS: NS 1,000 ML IV 1,000 ML IV SCH (04:53)
[2021-03-20] MEDS ORDERED: VITAMIN D3 125 mcg (5,000 UNITS) PO SCH (05:10)
[2021-03-20] MEDS: ZOSYN VIAL 2.25 GRAMS 2.25 G in NS 100 ML IV + SPIKE MINIBAG* 100 ML IV SCH ×3 (05:12→21:00)
[2021-03-20] MEDS: SOLU-Medrol 125 MG VIAL IVP SCH ×3 (05:12→21:10)
[2021-03-20] MEDS: APRESOLINE TAB 25 MG PO SCH ×3 (05:23→21:03)
[2021-03-20 05:45] LABS: BASOPHILS % (AUTO) 0 % (0.2-1.0); HEMATOCRIT 33.9 % (36.0-47.0); LYMPHOCYTES # (AUTO) 0.6 X10^3/uL (1.3-2.9); LYMPHOCYTES % (AUTO) 2.8 % (21.0-51.0); MEAN CORPUSCULAR HEMOGLOBIN 26.9 pg (27.0-34.0); MEAN CORPUSCULAR HGB CONC 32.4 g/dL (33.0-35.0); MEAN PLATELET VOLUME 8.4 fL (7.4-11.0); MONOCYTES # (AUTO) 0.7 x10^3/uL (0.3-0.8); MONOCYTES % (AUTO) 3.2 % (0.0-13.0); RED BLOOD COUNT 4.08 X10^6/uL (3.5-5.4); RED CELL DISTRIBUTION WIDTH 15.2 % (11.6-16.5); WHITE BLOOD COUNT 20.2 X10^3/uL (3.6-10.0)
[2021-03-20 06:04] LABS: ALBUMIN 2.5 g/dL (3.4-5.0); CARBON DIOXIDE 19.8 mmol/L (21-32); COR CA(FOR HYPOALB) 10.2 mg/dL (8.5-10.1); CREATININE 4.35 mg/dL (0.55-1.02)
[2021-03-20 07:07] LABS: HYPOCHROMASIA SLIGHT; PLATELET MORPHOLOGY COMMENT NORMAL (NORMAL)
[2021-03-20] MEDS: CHLORTHALIDONE PO SCH (08:47)
[2021-03-20] MEDS: ZESTRIL TAB 40 MG PO SCH (08:48)
[2021-03-20] MEDS: NORVASC TAB 10 MG PO SCH (08:48)
[2021-03-20] MEDS: CHRONULAC PO SCH (08:48)
[2021-03-20] MEDS: PEPCID TAB 20 MG PO SCH (08:48)
[2021-03-20] MEDS: ZITHROMAX INJ 500 MG VIAL 250 MG in NS 250 ML IV 250 ML IV SCH (08:48)
[2021-03-20] MEDS: LIPITOR TAB 80 MG PO SCH (08:48)
[2021-03-20] MEDS: LOVENOX INJ 30 MG SYR SC SCH (08:48)
[2021-03-20] MEDS: PROTONIX INJ 40 MG VIAL IVP SCH ×2 (08:48→21:09)
[2021-03-20] MEDS: BROVANA IN SCH ×2 (09:00→20:51)
[2021-03-20] MEDS: PULMICORT NEB TX 0.5 MG NEB SCH ×2 (09:01→20:52)
[2021-03-20 10:36] VITALS: BMI 31.9
[2021-03-20] MEDS ORDERED: COREG TAB 12.5 MG PO SCH (12:00)
[2021-03-20] MEDS: ULTRAM PO PRN (12:09)
[2021-03-20] MEDS ORDERED: COREG TAB 12.5 MG PO ONE (14:29)
[2021-03-20] MEDS ORDERED: COREG TAB 12.5 MG ONE ×3 (14:49→21:05)
--- NOTE | 2021-03-20 16:58 | PCM.PROG ---
Progress Note Progress Note for Day of Date of Exam: 03/20/21 Subjective Subjective: Patient is a 56 year old AAF who was admitted to surgery due to SBO r/o. Patient later tested positive for COVID 19 virus upon admission. Patient has since became symptomatic for COVID. Patient is having SOB. Patient continues to report pain to abdomen. Surgery has ordered laxatives in an attempt to promot BM; no results with mag citrate, enema, lactulose. Patient is currently tolerating small amounts of liquid and food without vomiting. Patient requiring high concentration of oxygen; FIO2 40% high felxi with O2 Sat of 92%. CXR reveals pneumonia, ABG reveals hypoxia. No major changes in condition. BP is still not controlled at this time. Past Medical Family Social History Past Med/Fam/Surg Hx: No changes since H&P Allergies: Allergies diphenhydramine [From Benadryl] Allergy (Verified 06/08/17 13:35) Review of Systems ROS: No change since H&P Vital Signs and I&O's Vital Signs: Temperature 98.2 F Pulse Rate 69 Respiratory Rate 16 Blood Pressure [Right Arm] 133/70 Blood Pressure 167/97 O2 Sat by Pulse Oximetry 95 Intake and Output: Intake & Output 03/18/21 03/19/21 03/20/21 03/21/21 11:59 11:59 11:59 11:59 Intake Total 1386 / 1386 1244 / 1244 1512 / 1512 720 / 720 Balance 1386 / 1386 1244 / 1244 1512 / 1512 720 / 720 Physical Exam Oriented: Normal, Time, Person and Place Eyes: Normal Ear: Normal Nose: Normal Throat: Normal Respiratory: Generalized, Diminished and Rhonchi Cardiovascular: Normal : Normal Auscultation: Bowel Sounds: Decreased Tenderness: Diffuse and Moderate Skin: Normal Musculoskeletal: Normal Psychiatric: Normal Mood Description: Calm Affect: Normal Speech Pattern: Clear and Appropriate Laboratory and Diagnostics Result Diagrams: 03/20/21 05:26 03/20/21 05:26 Labs: 03/15/21 11:11 Blood Blood Culture - Preliminary 03/15/21 11:00 Blood Blood Culture - Preliminary Laboratory WBC 20.2 X10^3/uL (3.6-10.0) H 03/20/21 05:26 RBC 4.08 X10^6/uL (3.5-5.4) 03/20/21 05:26 Hgb 11.0 g/dL (12.0-16.0) L 03/20/21 05:26 Hct 33.9 % (36.0-47.0) L 03/20/21 05:26 MCV 83.0 fL (80.0-100.0) 03/20/21 05:26 MCH 26.9 pg (27.0-34.0) L 03/20/21 05:26 MCHC 32.4 g/dL (33.0-35.0) L 03/20/21 05:26 RDW 15.2 % (11.6-16.5) 03/20/21 05:26 Plt Count 223 X10^3/uL (150.0-450.0) 03/20/21 05:26 Plt Count Comment Adequate (ADEQUATE) 03/20/21 05:26 MPV 8.4 fL (7.4-11.0) 03/20/21 05:26 Neut % (Auto) 94.0 % (42.0-75.0) H 03/20/21 05:26 Lymph % (Auto) 2.8 % (21.0-51.0) L 03/20/21 05:26 [place] % (Auto) 3.2 % (0.0-13.0) 03/20/21 05:26 Eos % (Auto) 0.0 % (0.9-2.9) L 03/20/21 05:26 Baso % (Auto) 0 % (0.2-1.0) L 03/20/21 05:26 Neut # (Auto) 19.0 x10^3/uL (2.2-4.8) H 03/20/21 05:26 Lymph # (Auto) 0.6 X10^3/uL (1.3-2.9) L 03/20/21 05:26 [place] # (Auto) 0.7 x10^3/uL (0.3-0.8) 03/20/21 05:26 Eos # (Auto) 0.0 x10^3/uL (0.0-0.2) 03/20/21 05:26 Baso # (Auto) 0.0 X10^3/uL (0.0-0.1) 03/20/21 05:26 Absolute Nucleated RBC 0.1 /100WBC 03/20/21 05:26 Total Counted 100 03/20/21 05:26 Neutrophils % (Manual) 95 % (39-76) H 03/20/21 05:26 Lymphocytes % (Manual) 3 % (13-43) L 03/20/21 05:26 Monocytes % (Manual) 2 % (4-9) L 03/20/21 05:26 Plt Morphology Comment Normal (NORMAL) 03/20/21 05:26 RBC Morphology Abnormal (NORMAL) A 03/20/21 05:26 Hypochromasia Slight A 03/20/21 05:26 Sample Site Lr 03/19/21 05:08 ABG pH 7.340 (7.35-7.45) L 03/19/21 05:08 ABG pCO2 46.0 mmHg (35.0-45.0) H 03/19/21 05:08 ABG pO2 61.0 mmHg (80.0-100.0) L 03/19/21 05:08 ABG HCO3 24.8 mmol/L (22-26) 03/19/21 05:08 ABG O2 Saturation 89.0 % (90-100) L 03/19/21 05:08 ABG Base Excess -1.3 mmol/L (-2.0-2.0) 03/19/21 05:08 Kemal Test Pos 03/19/21 05:08 A-a Gradient 238.0 mmHg 03/19/21 05:08 FiO2 50 03/19/21 05:08 Blood Gas Comments [place] well kb cb 03/19/21 05:08 Sodium 140 mmol/L (136-145) 03/20/21 05:26 Corrected Sodium 141 mmol/L (136-145) 03/20/21 05:26 Potassium 3.9 mmol/L (3.5-5.1) 03/20/21 05:26 Chloride 108 mmol/L (98-107) H 03/20/21 05:26 Carbon Dioxide 19.8 mmol/L (21-32) L 03/20/21 05:26 BUN 64 mg/dL (7-18) H 03/20/21 05:26 Creatinine 4.35 mg/dL (0.55-1.02) H 03/20/21 05:26 Est GFR (MDRD) Af Amer 14 (>60) L 03/20/21 05:26 Est GFR (MDRD) Non-Af 11 (>60) L 03/20/21 05:26 Glucose 128 mg/dL (65-99) H 03/20/21 05:26 Calcium 9.0 mg/dL (8.5-10.1) 03/20/21 05:26 Corrected Calcium 10.2 mg/dL (8.5-10.1) H 03/20/21 05:26 Total Bilirubin 0.40 mg/dL (0.2-1.0) 03/20/21 05:26 AST 20 Units/L (15-37) 03/20/21 05:26 ALT 30 Units/L (12-78) 03/20/21 05:26 Alkaline Phosphatase 53 Units/L (46-116) 03/20/21 05:26 Creatine Kinase 27 Units/L (26-192) 03/17/21 02:14 CK-MB (CK-2) < 1.0 ng/mL (0-4.0) 03/17/21 02:14 CK/CKMB % Calc 3.7 % (<4) 03/17/21 02:14 Troponin I High Sens 13.6 ng/L (4.0-60.0) 03/17/21 02:14 C-Reactive Protein 12.10 mg/L (0-3.0) H 03/16/21 05:17 Total Protein 7.0 g/dL (6.4-8.2) 03/20/21 05:26 Albumin 2.5 g/dL (3.4-5.0) L 03/20/21 05:26 Globulin 4.5 g/dL (2.5-4.5) 03/20/21 05:26 Albumin/Globulin Ratio 0.6 Ratio (1.1-2.1) L 03/20/21 05:26 SARS CoV-2 RNA Rapid XIANG Positive (NEGATIVE) A 03/13/21 21:56 Radiology Reviewed: Yes Plan (1) SBO (small bowel obstruction): Status: Acute Narrative Support Text: Large BM last night. Plan: NGT removed Tolerating food and liquids po Resolving General surgery (2) COVID: Status: Acute Plan: IV abx IV Steroids (3) HTN (hypertension): Status: Chronic Plan: Home meds. Add Coreg 25 mg bid and change Hydralazine to 50 mg QID. (4) CAD (coronary artery disease): Status: Chronic Qualifiers: Associated angina: without angina Coronary Disease-Associated Artery/Lesion type: [place] artery [place] vs. transplanted heart: [place] heart Qualified Code(s): I25.10 - Atherosclerotic heart disease of [place] coronary artery without angina pectoris Plan: History of heart cath approximately 2013 Unknown whether she had stents placed but does report a blockage stable (5) CKD (chronic kidney disease) stage 5, GFR less than 15 ml/min: Status: Chronic Plan: Hydrate and observe with follow up labs (6) Pneumonia due to COVID-19 virus: Status: Acute Plan: Trend CXR, ABG Zithromax, renal dose Zosyn Steroids Duo nebs (7) GERD (gastroesophageal reflux disease): Status: Acute Plan: IV protonix, malox prn
--- NOTE | 2021-03-20 17:34 | NOTE.SOAP ---
Soap Note Note for Day of Date of Exam: 03/20/21 Subjective Data Subjective Data: Continues to improve overall. Taking the diet. Complaining of some abdominal pain but abdomen is benign. Having bowel movements. Objective Data Pulse Rate: 76 Respiratory Rate: 17 Blood Pressure: 186/94 O2 Sat by Pulse Oximetry: 95 Objective Data: Benign abdomen Assessment Assessment: SBO/ileus resolved. Continue to be treated for Covid and pneumonia Plan Plan: I will sign off at this time . Please call me again if this is needed.
[2021-03-20] MEDS ORDERED: APRESOLINE TAB 25 MG ONE (19:38)
[2021-03-20] MEDS: MELATONIN PO SCH (21:09)
[2021-03-20] MEDS: COREG TAB 25 MG PO SCH (21:09)
--- NOTE | 2021-03-20 21:48 | DR.CP ---
HPI Time Seen Time Seen by Provider: 03/13/21 19:46 PCP Primary Care Physician: ANA Yeung DROSS PULLER HPI Comment HPI Comment: A 56 y/o female presenting with c/o epigastric abdominal pain, nausea and vomiting since yesterday. Intermittent and recurrent. not getting better. She denies fever or chills. Complaint Chief Complaint:: PT REPORTS THAT SHE STARTED HAVING ABD PAIN YESTERDAY WHEN SHE WOKE UP AROUND 11AM AFTER SHE ATE YESTERDAY , PT REPORTS EPIGASTRIC PAIN SHARP, AND PT REPORTS PAIN RADIATES TO HER CHEST ( MID ) ,BR Self Treatment fo Chief Complaint: TYLENOL COVID-19 Coronavirus risk:travel/contact w/high risk person: No Has patient experienced Coronavirus symptoms: No Reviewed Nurses Notes Review: Yes Source History Provided: Patient Mode of Arrival Mode of Arrival: Ambulatory Timing Onset of Chief Complaint: 03/12/21 Came on: Gradually Duration Duration: Intermittent How lon Duration: Hours Location Chest Pain Radiation Location: None Associated Signs and Symptoms Associated Signs and Symptoms: None PMH PMH Past Medical History: Yes Past Medical History: Hypertension and Renal Disease Past Surgical History: Yes Surgical History: Angioplasty/Stents Family History History of Family Medical Conditions: Yes Family Medical History: Diabetes Mellitus, MS and Hypertension Social History Does patient currently use any type of tobacco product: No Have you used tobacco products in the last 12 months: No Type of Tobacco Use: None Does any household member use tobacco: No Alcohol Use: None Do you use any recreational Drugs:: No Lives With: Family Lives Where: Home Travel Risk Coronavirus risk:travel/contact w/high risk person: No Has patient experienced Coronavirus symptoms: No Infectious screening In the last 2 months have you had wt loss of >10#?: NO Have you had fever, night sweats or hemotysis?: No Have you traveled outside the country in the last 6 months?: No Isolation: Standard ROS Review of Systems Constitutional: No Symptoms Reported Eyes: No Symptoms Reported ENTM: No Symptoms Reported Respiratoy: No Symptoms Reported Cardiovascular: No Symptoms Reported Gastrointestinal/Abdominal: Abdominal Pain (epigastric), Nausea and Vomiting Genitourinary: No Symptoms Reported Neurological: No Symptoms Reported Musculoskeletal: No Symptoms Reported Integumentary: No Symptoms Reported Hematologic/Lymphatic: No Symptoms Reported Endocrine: No Symptoms Reported Psychiatric: No Symptoms Reported PE Vitals Vitals: Temperature 98.4 F Pulse Rate 66 Respiratory Rate 18 Blood Pressure [Right Arm] 133/70 Blood Pressure 185/93 O2 Sat by Pulse Oximetry 97 General Limitations: No Limitations General Appearance: Alert and In No Apparent Distress Head Head Exam: Normal Inspection, Atraumatic and Normocephalic Eyes Eye exam: Normal Appearance and EOMI ENT ENT Exam: Normal Exam, Normal Oropharynx, Normal External Ear Exam and Mucous Membranes Moist Chest Chest Inspection: Normal Inspection and Symmetric Chest Wall Rise Respiratory Respiratory Exam: Normal Lung Sounds Bilat Cardiovascular Cardiovascular Exam: Regular Rate, Normal Rhythm, Normal Heart Sounds, +S1 and +S2 Abdominal Exam Abdominal Exam: Normal Inspection, Normal Bowel Sounds, Soft and Tenderness; negative Distention, Guarding, Rebound, Rigidity, Dimnished Bowel Sounds, Hyperactive Bowel Sounds, Hypoactive Bowel Sounds, Organomegaly, Trauma, Incision, Ascites, Mass, Bruit, Pulsatile Mass and Hernia Abdominal Tenderness: Epigastrium Extremities Extremities Exam: Normal Inspection and Full ROM Back Back Exam: Normal Inspection and Full ROM Neurologic Neurological Exam: Alert and Oriented X3 Psychiatric Psychiatric Exam: Normal Affect and Normal Mood Skin Skin Exam: Intact COURSE Reevaluation 1st: Unchanged Consultation Consultation Comments: I discussed her presentation and diagnostic studies with on-call staff surgeon (Dr. Santana). He agrees to have the pt. admitted to his service and he will come by to see her. Bridge/admission orders were wirtten. Education/Counseling Education/Counseling: Patient, Education and Counseling Educated On: Treatment, Diagnosis, Prognosis and Needs for Follow Up ROR Labs Reviewed Result Diagrams: 03/20/21 05:26 03/20/21 05:26 Laboratory: WBC 6.6 X10^3/uL (3.6-10.0) 03/13/21 20:01 RBC 4.00 X10^6/uL (3.5-5.4) 03/13/21 20:01 Hgb 10.9 g/dL (12.0-16.0) L 03/13/21 20:01 Hct 33.7 % (36.0-47.0) L 03/13/21 20:01 MCV 84.3 fL (80.0-100.0) 03/13/21 20:01 MCH 27.3 pg (27.0-34.0) 03/13/21 20:01 MCHC 32.4 g/dL (33.0-35.0) L 03/13/21 20:01 RDW 15.3 % (11.6-16.5) 03/13/21 20:01 Plt Count 134 X10^3/uL (150.0-450.0) L 03/13/21 20:01 MPV 7.7 fL (7.4-11.0) 03/13/21 20:01 Neut % (Auto) 75.3 % (42.0-75.0) H 03/13/21 20:01 Lymph % (Auto) 15.4 % (21.0-51.0) L 03/13/21 20:01 [place] % (Auto) 8.0 % (0.0-13.0) 03/13/21 20:01 Eos % (Auto) 0.5 % (0.9-2.9) L 03/13/21 20:01 Baso % (Auto) 0.8 % (0.2-1.0) 03/13/21 20:01 Neut # (Auto) 5.0 x10^3/uL (2.2-4.8) H 03/13/21 20:01 Lymph # (Auto) 1.0 X10^3/uL (1.3-2.9) L 03/13/21 20:01 [place] # (Auto) 0.5 x10^3/uL (0.3-0.8) 03/13/21 20:01 Eos # (Auto) 0.0 x10^3/uL (0.0-0.2) 03/13/21 20:01 Baso # (Auto) 0.1 X10^3/uL (0.0-0.1) 03/13/21 20:01 Absolute Nucleated RBC 0.1 /100WBC 03/13/21 20:01 Sodium 141 mmol/L (136-145) 03/13/21 20:01 Corrected Sodium 142 mmol/L (136-145) 03/13/21 20:01 Potassium 3.8 mmol/L (3.5-5.1) 03/13/21 20:01 Chloride 105 mmol/L (98-107) 03/13/21 20:01 Carbon Dioxide 24.5 mmol/L (21-32) 03/13/21 20:01 BUN 37 mg/dL (7-18) H 03/13/21 20:01 Creatinine 4.62 mg/dL (0.55-1.02) H 03/13/21 20:01 Est GFR (MDRD) Af Amer 13 (>60) L 03/13/21 20:01 Est GFR (MDRD) Non-Af 10 (>60) L 03/13/21 20:01 Glucose 128 mg/dL (65-99) H 03/13/21 20:01 Calcium 8.6 mg/dL (8.5-10.1) 03/13/21 20:01 Corrected Calcium TNP 03/13/21 20:01 Total Bilirubin 0.20 mg/dL (0.2-1.0) 03/13/21 20:01 AST 18 Units/L (15-37) 03/13/21 20:01 ALT 19 Units/L (12-78) 03/13/21 20:01 Alkaline Phosphatase 68 Units/L (46-116) 03/13/21 20:01 Total Protein 8.2 g/dL (6.4-8.2) 03/13/21 20:01 Albumin 3.4 g/dL (3.4-5.0) 03/13/21 20:01 Globulin 4.8 g/dL (2.5-4.5) H 03/13/21 20:01 Albumin/Globulin Ratio 0.7 Ratio (1.1-2.1) L 03/13/21 20:01 SARS CoV-2 RNA Rapid XIANG Positive (NEGATIVE) A 03/13/21 21:56 Opioid Opioid Risk Tool Age ([place] box if 16-45): No History of Preadolescent Sexual Abuse: No Total: 0 Total Score Risk Category: Low Risk Copyright: [facility] predicting aberrant behaviors Diagnosis Discharge Problem: SBO (small bowel obstruction), Hypertension, uncontrolled, CKD (chronic kidney disease) stage 5, GFR less than 15 ml/min CAD (coronary artery disease) Qualifiers: Coronary Disease-Associated Artery/Lesion type: [place] artery [place] vs. transplanted heart: [place] heart Associated angina: without angina Qualified Code(s): I25.10 - Atherosclerotic heart disease of [place] coronary artery without angina pectoris Instructions Forms: EUA Consent ADDITIONAL NOTES Additional Notes Additional Notes: Name: Savanah DIETRICH#: [id number]: [id number] : 1965Sex: FLocation: ER Order Number(s): [id number](s):ABDOMEN/PELVIS W/O CON Ordering Physician: ALANNA RO Primary Care: Pat ReyesAna Service Date: 03/13/21 Service Time: 2048 EXAM: CT ABDOMEN AND PELVIS WITHOUT INTRAVENOUS CONTRAST HISTORY: Abdominal pain. Bloating, nausea, and vomiting. TECHNIQUE: Spiral axial CT images are obtained through the abdomen and pelvis without the administration of intravenous contrast. Additional coronal and sagittal reformatted images are reconstructed. DOSIMETRY: Total DLP 642.5 mGycm; CTDI 13.6 mGy COMPARISON: None available. FINDINGS: GASTROINTESTINAL TRACT: Findings consistent with small bowel obstruction, with up to 3.3 cm dilated fluid-filled small bowel loops within the abdomen and pelvis, and completely collapsed proximal and distal small bowel loops; possible closed-loop obstruction ((SBO with proximal small bowel decompression with vomiting); obstructing etiology is not visualized; rule out adhesions. There is a small hiatal hernia (4.1 cm transverse by 4 cm AP). There is no evidence for bowel herniation, colitis or diverticulitis. A normal-appearing appendix is seen. GENITOURINARY SYSTEM: The kidneys are unremarkable. There is no ureteral calculus or stigmata of obstructive uropathy. The urinary bladder is grossly unremarkable for a non-dedicated exam. REPRODUCTIVE SYSTEM: There is an enlarged fibroid uterus with the largest discernible fibroid seen in the posterior fundal region measuring up to 5.5 cm. Correlation with ultrasound and/or MRI may be beneficial for optimal assessment of the uterus. The adnexa appear grossly unremarkable for a CT scan. Consider follow-up dedicated imaging as clinically warranted. CT ABDOMEN: The liver, spleen, pancreas, adrenal glands, gallbladder, aorta, and inferior vena cava are within normal limits for a noncontrast CT scan. There is no intra-abdominal or retroperitoneal lymphadenopathy, free fluid, or free air seen. No abdominal herniation is noted. CT PELVIS: No pelvic sidewall or inguinal lymphadenopathy is seen. No inguinal herniation is noted. No free fluid or free air is seen. BONES AND JOINTS: Severe multilevel DDD is seen throughout the distal thoracic and lumbar spine. The visualized bony structures are otherwise within normal limits. LUNG BASES: The lung bases are clear. Anterior pericardial effusion (measuring up to 1.3 cm thick). IMPRESSION: 1. Findings consistent with SBO, with up to 3.3 cm dilated fluid-filled small bowel loops within the abdomen and pelvis, and completely collapsed proximal and distal small bowel loops; possible closed-loop obstruction ((SBO with proximal small bowel decompression with vomiting); obstructing etiology is not visualized; rule out adhesions. 2. Small hiatal hernia (4.1 cm transverse by 4 cm AP). There is no evidence for bowel herniation, colitis or diverticulitis. 3. No evidence for acute appendicitis, bowel herniation, colitis or diverticulitis seen. 4. No free fluid, free air, or lymphadenopathy seen. 5. Enlarged fibroid uterus with the largest discernible fibroid seen in the posterior fundal region measuring up to 5.5 cm. Correlation with ultrasound and/or MRI may be beneficial for optimal assessment of the uterus. 6. No evidence for renal stone disease or obstructive uropathy. 7. Anterior pericardial effusion (measuring up to 1.3 cm thick). Electronically signed by: Shandra Wiggins (Mar 13, 2021 21:24:47) Report Electronically signed: 03/13/[id number] CC: Alanna Ro
[2021-03-21] MEDS: APRESOLINE TAB 25 MG PO SCH ×4 (04:00→20:52)
[2021-03-21] MEDS: NS 1,000 ML IV 1,000 ML IV SCH (05:08)
[2021-03-21 06:03] LABS: BASOPHILS % (AUTO) 0 % (0.2-1.0); CALCIUM 9.3 mg/dL (8.5-10.1); CARBON DIOXIDE 20.1 mmol/L (21-32); CREATININE 4.69 mg/dL (0.55-1.02); HEMATOCRIT 35.4 % (36.0-47.0); HEMOGLOBIN 11.4 g/dL (12.0-16.0); LYMPHOCYTES # (AUTO) 0.7 X10^3/uL (1.3-2.9); LYMPHOCYTES % (AUTO) 4.7 % (21.0-51.0); MEAN CORPUSCULAR HEMOGLOBIN 26.9 pg (27.0-34.0); MEAN CORPUSCULAR HGB CONC 32.1 g/dL (33.0-35.0); MEAN CORPUSCULAR VOLUME 83.7 fL (80.0-100.0); MEAN PLATELET VOLUME 8.3 fL (7.4-11.0); MONOCYTES # (AUTO) 0.7 x10^3/uL (0.3-0.8); MONOCYTES % (AUTO) 4.7 % (0.0-13.0); NEUTROPHILS # (AUTO) 13.2 x10^3/uL (2.2-4.8); NEUTROPHILS % (AUTO) 90.6 % (42.0-75.0); RED BLOOD COUNT 4.22 X10^6/uL (3.5-5.4); RED CELL DISTRIBUTION WIDTH 14.6 % (11.6-16.5); WHITE BLOOD COUNT 14.5 X10^3/uL (3.6-10.0)
[2021-03-21 06:35] LABS: ALBUMIN 2.5 g/dL (3.4-5.0); COR CA(FOR HYPOALB) 10.5 mg/dL (8.5-10.1); TOTAL PROTEIN 6.8 g/dL (6.4-8.2)
[2021-03-21] MEDS: SOLU-Medrol 125 MG VIAL IVP SCH ×3 (06:45→20:59)
[2021-03-21] MEDS: ZOSYN VIAL 2.25 GRAMS 2.25 G in NS 100 ML IV + SPIKE MINIBAG* 100 ML IV SCH ×3 (06:45→20:59)
[2021-03-21 06:58] LABS: PLATELET MORPHOLOGY COMMENT NORMAL (NORMAL)
[2021-03-21 07:00] LABS: HYPOCHROMASIA SLIGHT
[2021-03-21] MEDS: COREG TAB 25 MG PO SCH ×2 (09:49→20:52)
[2021-03-21] MEDS: CHRONULAC PO SCH (09:49)
[2021-03-21] MEDS: CHLORTHALIDONE PO SCH (09:49)
[2021-03-21] MEDS: LOVENOX INJ 30 MG SYR SC SCH (09:50)
[2021-03-21] MEDS: NORVASC TAB 10 MG PO SCH (09:50)
[2021-03-21] MEDS: LIPITOR TAB 80 MG PO SCH (09:50)
[2021-03-21] MEDS: PROTONIX INJ 40 MG VIAL IVP SCH ×2 (09:53→20:52)
[2021-03-21] MEDS: PEPCID TAB 20 MG PO SCH (09:53)
[2021-03-21] MEDS: ZESTRIL TAB 40 MG PO SCH (09:53)
[2021-03-21] MEDS: ZITHROMAX INJ 500 MG VIAL 250 MG in NS 250 ML IV 250 ML IV SCH (09:53)
[2021-03-21] MEDS: BROVANA IN SCH ×2 (09:55→21:00)
[2021-03-21] MEDS: PULMICORT NEB TX 0.5 MG NEB SCH ×2 (09:55→21:00)
[2021-03-21] MEDS ORDERED: NS 100 ML IV + SPIKE MINIBAG* 100 ML IV ONE ×2 (15:13→20:26)
--- NOTE | 2021-03-21 15:25 | PCM.PROG ---
Progress Note - Subjective Subjective: Patient is a 56 year old AAF who was admitted due to SBO r/o. Patient tested positive for COVID 19 virus upon admission and was not having symptoms of COVID 19 at that time however she has since developed symptoms. Patient had SOB; she reports her SOB has improved. Patient reports abdominal pain has improved. Denies N/V. Reports good adequate BMs. Patient's condition has improved. Plan for possible discharge home in am. Patient states she is ready to go home. - Past Medical Family Social History Past Med/Fam/Surg Hx: No changes since H&P Allergies: Allergies diphenhydramine [From Benadryl] Allergy (Verified 06/08/17 13:35) - Review of Systems ROS: No change since H&P - Vital Signs and I&O's Vital Signs: Temperature 98.1 F Pulse Rate 79 Respiratory Rate 21 Blood Pressure [Right Arm] 133/70 Blood Pressure 189/86 O2 Sat by Pulse Oximetry 94 Intake and Output: Intake & Output 03/18/21 03/19/21 03/20/21 03/21/21 23:59 23:59 23:59 23:59 Intake Total 1589 / 1589 1205 / 1205 1358 / 1358 348 / 348 Balance 1589 / 1589 1205 / 1205 1358 / 1358 348 / 348 - Physical Exam Oriented: Normal, Time, Person, Place Eyes: Normal Ear: Normal Nose: Normal Throat: Normal Respiratory: Generalized, Diminished Cardiovascular: Normal : Normal Auscultation: Bowel Sounds: Normal Palpation: Normal Tenderness: Epigastric, Mild Skin: Normal Musculoskeletal: Normal Psychiatric: Normal Mood Description: Calm Affect: Normal Speech Pattern: Clear, Appropriate - Laboratory and Diagnostics Result Diagrams: 03/21/21 05:40 03/21/21 05:40 Labs: 03/15/21 11:11 Blood Blood Culture - Final 03/15/21 11:00 Blood Blood Culture - Final Laboratory WBC 14.5 X10^3/uL (3.6-10.0) H 03/21/21 05:40 RBC 4.22 X10^6/uL (3.5-5.4) 03/21/21 05:40 Hgb 11.4 g/dL (12.0-16.0) L 03/21/21 05:40 Hct 35.4 % (36.0-47.0) L 03/21/21 05:40 MCV 83.7 fL (80.0-100.0) 03/21/21 05:40 MCH 26.9 pg (27.0-34.0) L 03/21/21 05:40 MCHC 32.1 g/dL (33.0-35.0) L 03/21/21 05:40 RDW 14.6 % (11.6-16.5) 03/21/21 05:40 Plt Count 237 X10^3/uL (150.0-450.0) 03/21/21 05:40 Plt Count Comment Adequate (ADEQUATE) 03/21/21 05:40 MPV 8.3 fL (7.4-11.0) 03/21/21 05:40 Neut % (Auto) 90.6 % (42.0-75.0) H 03/21/21 05:40 Lymph % (Auto) 4.7 % (21.0-51.0) L 03/21/21 05:40 [place] % (Auto) 4.7 % (0.0-13.0) 03/21/21 05:40 Eos % (Auto) 0.0 % (0.9-2.9) L 03/21/21 05:40 Baso % (Auto) 0 % (0.2-1.0) L 03/21/21 05:40 Neut # (Auto) 13.2 x10^3/uL (2.2-4.8) H 03/21/21 05:40 Lymph # (Auto) 0.7 X10^3/uL (1.3-2.9) L 03/21/21 05:40 [place] # (Auto) 0.7 x10^3/uL (0.3-0.8) 03/21/21 05:40 Eos # (Auto) 0.0 x10^3/uL (0.0-0.2) 03/21/21 05:40 Baso # (Auto) 0.0 X10^3/uL (0.0-0.1) 03/21/21 05:40 Absolute Nucleated RBC 0.1 /100WBC 03/21/21 05:40 Total Counted 100 03/21/21 05:40 Neutrophils % (Manual) 86 % (39-76) H 03/21/21 05:40 Lymphocytes % (Manual) 5 % (13-43) L 03/21/21 05:40 Monocytes % (Manual) 9 % (4-9) 03/21/21 05:40 Plt Morphology Comment Normal (NORMAL) 03/21/21 05:40 RBC Morphology Abnormal (NORMAL) A 03/21/21 05:40 Hypochromasia Slight A 03/21/21 05:40 Sample Site Lr 03/19/21 05:08 ABG pH 7.340 (7.35-7.45) L 03/19/21 05:08 ABG pCO2 46.0 mmHg (35.0-45.0) H 03/19/21 05:08 ABG pO2 61.0 mmHg (80.0-100.0) L 03/19/21 05:08 ABG HCO3 24.8 mmol/L (22-26) 03/19/21 05:08 ABG O2 Saturation 89.0 % (90-100) L 03/19/21 05:08 ABG Base Excess -1.3 mmol/L (-2.0-2.0) 03/19/21 05:08 Kemal Test Pos 03/19/21 05:08 A-a Gradient 238.0 mmHg 03/19/21 05:08 FiO2 50 03/19/21 05:08 Blood Gas Comments [place] well kb cb 03/19/21 05:08 Sodium 142 mmol/L (136-145) 03/21/21 05:40 Corrected Sodium 143 mmol/L (136-145) 03/21/21 05:40 Potassium 4.5 mmol/L (3.5-5.1) 03/21/21 05:40 Chloride 108 mmol/L (98-107) H 03/21/21 05:40 Carbon Dioxide 20.1 mmol/L (21-32) L 03/21/21 05:40 BUN 74 mg/dL (7-18) H 03/21/21 05:40 Creatinine 4.69 mg/dL (0.55-1.02) H 03/21/21 05:40 Est GFR (MDRD) Af Amer 12 (>60) L 03/21/21 05:40 Est GFR (MDRD) Non-Af 10 (>60) L 03/21/21 05:40 Glucose 121 mg/dL (65-99) H 03/21/21 05:40 Calcium 9.3 mg/dL (8.5-10.1) 03/21/21 05:40 Corrected Calcium 10.5 mg/dL (8.5-10.1) H 03/21/21 05:40 Total Bilirubin 0.40 mg/dL (0.2-1.0) 03/21/21 05:40 AST 16 Units/L (15-37) 03/21/21 05:40 ALT 36 Units/L (12-78) 03/21/21 05:40 Alkaline Phosphatase 53 Units/L (46-116) 03/21/21 05:40 Creatine Kinase 27 Units/L (26-192) 03/17/21 02:14 CK-MB (CK-2) < 1.0 ng/mL (0-4.0) 03/17/21 02:14 CK/CKMB % Calc 3.7 % (<4) 03/17/21 02:14 Troponin I High Sens 13.6 ng/L (4.0-60.0) 03/17/21 02:14 C-Reactive Protein 12.10 mg/L (0-3.0) H 03/16/21 05:17 Total Protein 6.8 g/dL (6.4-8.2) 03/21/21 05:40 Albumin 2.5 g/dL (3.4-5.0) L 03/21/21 05:40 Globulin 4.3 g/dL (2.5-4.5) 03/21/21 05:40 Albumin/Globulin Ratio 0.6 Ratio (1.1-2.1) L 03/21/21 05:40 SARS CoV-2 RNA Rapid XIANG Positive (NEGATIVE) A 03/13/21 21:56 - Plan (1) SBO (small bowel obstruction) Status: Resolved Plan: Tolerating food and liquids po. Resolving. General surgery. Patient having adequate BMs (2) COVID Status: Acute Plan: IV abx. IV Steroids. Duo mebs. Supplemental oxygen (3) HTN (hypertension) Status: Chronic Plan: BP meds adjusted (4) CAD (coronary artery disease) Status: Chronic Qualifiers: Coronary Disease-Associated Artery/Lesion type: [place] artery [place] vs. transplanted heart: [place] heart Associated angina: without angina Qualified Code(s): I25.10 - Atherosclerotic heart disease of [place] coronary artery without angina pectoris Plan: History of heart cath approximately 2013. Unknown whether she had stents placed at that time but she does report a blockage; unknown percent. stable (5) CKD (chronic kidney disease) stage 5, GFR less than 15 ml/min Status: Chronic Plan: Observe with follow up labs. stable (6) Pneumonia due to COVID-19 virus Status: Acute Plan: Trend CXR, ABG. Zithromax, renal dose Zosyn. Steroids. oxygen. Duo nebs (7) GERD (gastroesophageal reflux disease) Status: Acute Plan: IV protonix, malox prn
--- NOTE | 2021-03-21 16:10 | RAD ---
HISTORYPNEUMONIA HTN, RENAL DISEASESTUDYCHEST, PA/LAT ADULTCOMPARISONOne-view chest March 19, 2021FINDINGSThe trachea is midline. The cardiac silhouette is unremarkable. There is a persistent infiltrate in the right lower lobe without significant change compared to March 19, 2021. There is a small pleural effusion seen posteriorly on the lateral view. The bony thorax is unremarkable.IMPRESSIONPersistent right lower lobe infiltrate and small effusion unchanged from March 19, 2021Electronically signed by: JAGRUTI SILVERMAN (Mar 21, 2021 16:09:49)
[2021-03-21] MEDS ORDERED: ZOSYN VIAL 2.25 GRAMS ONE (20:32)
[2021-03-21] MEDS: ULTRAM PO PRN (20:51)
[2021-03-21] MEDS: MELATONIN PO SCH (20:51)
[2021-03-22] MEDS: APRESOLINE TAB 25 MG PO SCH ×4 (03:44→20:01)
[2021-03-22 05:34] LABS: BASOPHILS % (AUTO) 0.1 % (0.2-1.0); HEMATOCRIT 31.3 % (36.0-47.0); HEMOGLOBIN 10.1 g/dL (12.0-16.0); LYMPHOCYTES # (AUTO) 0.5 X10^3/uL (1.3-2.9); LYMPHOCYTES % (AUTO) 3.7 % (21.0-51.0); MEAN CORPUSCULAR HEMOGLOBIN 26.8 pg (27.0-34.0); MEAN CORPUSCULAR HGB CONC 32.4 g/dL (33.0-35.0); MEAN CORPUSCULAR VOLUME 82.9 fL (80.0-100.0); MEAN PLATELET VOLUME 8.6 fL (7.4-11.0); MONOCYTES # (AUTO) 0.5 x10^3/uL (0.3-0.8); MONOCYTES % (AUTO) 3.2 % (0.0-13.0); NEUTROPHILS # (AUTO) 13.1 x10^3/uL (2.2-4.8); RED BLOOD COUNT 3.78 X10^6/uL (3.5-5.4); RED CELL DISTRIBUTION WIDTH 14.9 % (11.6-16.5); WHITE BLOOD COUNT 14.1 X10^3/uL (3.6-10.0)
[2021-03-22 05:46] LABS: CALCIUM 8.8 mg/dL (8.5-10.1); CARBON DIOXIDE 20.1 mmol/L (21-32); CREATININE 5.22 mg/dL (0.55-1.02)
[2021-03-22] MEDS: ZOSYN VIAL 2.25 GRAMS 2.25 G in NS 100 ML IV + SPIKE MINIBAG* 100 ML IV SCH ×3 (05:50→22:12)
[2021-03-22] MEDS: SOLU-Medrol 125 MG VIAL IVP SCH ×3 (05:50→22:12)
[2021-03-22] MEDS: NS 1,000 ML IV 1,000 ML IV SCH (05:50)
[2021-03-22 06:06] LABS: ALBUMIN 2.4 g/dL (3.4-5.0); COR CA(FOR HYPOALB) 10.1 mg/dL (8.5-10.1); MAGNESIUM 2.4 mg/dL (1.7-2.9); TOTAL PROTEIN 6.2 g/dL (6.4-8.2)
[2021-03-22 06:26] LABS: PLATELET MORPHOLOGY COMMENT NORMAL (NORMAL)
[2021-03-22] MEDS: PULMICORT NEB TX 0.5 MG NEB SCH ×2 (09:18→21:52)
[2021-03-22] MEDS: BROVANA IN SCH ×2 (09:18→21:52)
[2021-03-22] MEDS: COREG TAB 25 MG PO SCH ×2 (09:39→20:01)
[2021-03-22] MEDS: LIPITOR TAB 80 MG PO SCH (09:39)
[2021-03-22] MEDS: CHRONULAC PO SCH (09:39)
[2021-03-22] MEDS: CHLORTHALIDONE PO SCH (09:39)
[2021-03-22] MEDS: NORVASC TAB 10 MG PO SCH (09:40)
[2021-03-22] MEDS: LOVENOX INJ 30 MG SYR SC SCH (09:40)
[2021-03-22] MEDS: ZESTRIL TAB 40 MG PO SCH (09:40)
[2021-03-22] MEDS: PROTONIX INJ 40 MG VIAL IVP SCH ×2 (09:40→20:01)
[2021-03-22] MEDS: PEPCID TAB 20 MG PO SCH (09:40)
[2021-03-22] MEDS: ZITHROMAX INJ 500 MG VIAL 250 MG in NS 250 ML IV 250 ML IV SCH (09:41)
--- NOTE | 2021-03-22 14:04 | PCM.PROG ---
Progress Note - Subjective Subjective: Patient is a 56 year old AAF who was admitted due to SBO r/o. Patient tested positive for COVID 19 virus upon admission and was not having symptoms of COVID 19 at that time however she has since developed symptoms. Patient had SOB; she reports her SOB has resolved. Patient reports abdominal pain has resolved. Denies N/V. Reports good adequate BMs. Patient's overall respiratory and GI condition has improved. However kidney function has slightly worsened. Plan for possible discharge home in am pending labs/kidney improvement. Patient states she is ready to go home. - Past Medical Family Social History Past Med/Fam/Surg Hx: No changes since H&P Allergies: Allergies diphenhydramine [From Benadryl] Allergy (Verified 06/08/17 13:35) - Review of Systems ROS: No change since H&P - Vital Signs and I&O's Vital Signs: Temperature 98.8 F Pulse Rate 88 Respiratory Rate 23 Blood Pressure [Right Arm] 133/70 Blood Pressure 162/86 O2 Sat by Pulse Oximetry 94 Intake and Output: Intake & Output 03/19/21 03/20/21 03/21/21 03/22/21 23:59 23:59 23:59 23:59 Intake Total 1205 / 1205 1358 / 1358 2063 / 2063 662 / 662 Output Total 3 / 3 Balance 1205 / 1205 1358 / 1358 2060 / 2060 662 / 662 - Physical Exam Oriented: Normal, Time, Person, Place Eyes: Normal Ear: Normal Nose: Normal Throat: Normal Respiratory: Generalized, Diminished Cardiovascular: Normal : Normal Auscultation: Bowel Sounds: Normal Palpation: Normal Tenderness: Normal Skin: Normal Musculoskeletal: Normal Psychiatric: Normal Mood Description: Calm Affect: Normal Speech Pattern: Clear, Appropriate - Laboratory and Diagnostics Result Diagrams: 03/23/21 05:24 03/23/21 05:24 Labs: 03/15/21 11:11 Blood Blood Culture - Final 03/15/21 11:00 Blood Blood Culture - Final Laboratory WBC 14.1 X10^3/uL (3.6-10.0) H 03/22/21 04:43 RBC 3.78 X10^6/uL (3.5-5.4) 03/22/21 04:43 Hgb 10.1 g/dL (12.0-16.0) L 03/22/21 04:43 Hct 31.3 % (36.0-47.0) L 03/22/21 04:43 MCV 82.9 fL (80.0-100.0) 03/22/21 04:43 MCH 26.8 pg (27.0-34.0) L 03/22/21 04:43 MCHC 32.4 g/dL (33.0-35.0) L 03/22/21 04:43 RDW 14.9 % (11.6-16.5) 03/22/21 04:43 Plt Count 222 X10^3/uL (150.0-450.0) 03/22/21 04:43 Plt Count Comment Adequate (ADEQUATE) 03/22/21 04:43 MPV 8.6 fL (7.4-11.0) 03/22/21 04:43 Neut % (Auto) 93.0 % (42.0-75.0) H 03/22/21 04:43 Lymph % (Auto) 3.7 % (21.0-51.0) L 03/22/21 04:43 [place] % (Auto) 3.2 % (0.0-13.0) 03/22/21 04:43 Eos % (Auto) 0.0 % (0.9-2.9) L 03/22/21 04:43 Baso % (Auto) 0.1 % (0.2-1.0) L 03/22/21 04:43 Neut # (Auto) 13.1 x10^3/uL (2.2-4.8) H 03/22/21 04:43 Lymph # (Auto) 0.5 X10^3/uL (1.3-2.9) L 03/22/21 04:43 [place] # (Auto) 0.5 x10^3/uL (0.3-0.8) 03/22/21 04:43 Eos # (Auto) 0.0 x10^3/uL (0.0-0.2) 03/22/21 04:43 Baso # (Auto) 0.0 X10^3/uL (0.0-0.1) 03/22/21 04:43 Absolute Nucleated RBC 0.0 /100WBC 03/22/21 04:43 Total Counted 100 03/22/21 04:43 Neutrophils % (Manual) 86 % (39-76) H 03/22/21 04:43 Lymphocytes % (Manual) 12 % (13-43) L 03/22/21 04:43 Monocytes % (Manual) 2 % (4-9) L 03/22/21 04:43 Plt Morphology Comment Normal (NORMAL) 03/22/21 04:43 RBC Morphology Normal (NORMAL) 03/22/21 04:43 Hypochromasia Slight A 03/21/21 05:40 Sample Site Lr 03/19/21 05:08 ABG pH 7.340 (7.35-7.45) L 03/19/21 05:08 ABG pCO2 46.0 mmHg (35.0-45.0) H 03/19/21 05:08 ABG pO2 61.0 mmHg (80.0-100.0) L 03/19/21 05:08 ABG HCO3 24.8 mmol/L (22-26) 03/19/21 05:08 ABG O2 Saturation 89.0 % (90-100) L 03/19/21 05:08 ABG Base Excess -1.3 mmol/L (-2.0-2.0) 03/19/21 05:08 Kemal Test Pos 03/19/21 05:08 A-a Gradient 238.0 mmHg 03/19/21 05:08 FiO2 50 03/19/21 05:08 Blood Gas Comments [facility] 03/19/21 05:08 Sodium 143 mmol/L (136-145) 03/22/21 04:43 Corrected Sodium 144 mmol/L (136-145) 03/22/21 04:43 Potassium 4.0 mmol/L (3.5-5.1) 03/22/21 04:43 Chloride 110 mmol/L (98-107) H 03/22/21 04:43 Carbon Dioxide 20.1 mmol/L (21-32) L 03/22/21 04:43 BUN 84 mg/dL (7-18) H 03/22/21 04:43 Creatinine 5.22 mg/dL (0.55-1.02) H 03/22/21 04:43 Est GFR (MDRD) Af Amer 11 (>60) L 03/22/21 04:43 Est GFR (MDRD) Non-Af 9 (>60) L 03/22/21 04:43 Glucose 139 mg/dL (65-99) H 03/22/21 04:43 Calcium 8.8 mg/dL (8.5-10.1) 03/22/21 04:43 Corrected Calcium 10.1 mg/dL (8.5-10.1) 03/22/21 04:43 Magnesium 2.4 mg/dL (1.7-2.9) 03/22/21 04:43 Total Bilirubin 0.30 mg/dL (0.2-1.0) 03/22/21 04:43 AST 12 Units/L (15-37) L 03/22/21 04:43 ALT 29 Units/L (12-78) 03/22/21 04:43 Alkaline Phosphatase 47 Units/L (46-116) 03/22/21 04:43 Creatine Kinase 27 Units/L (26-192) 03/17/21 02:14 CK-MB (CK-2) < 1.0 ng/mL (0-4.0) 03/17/21 02:14 CK/CKMB % Calc 3.7 % (<4) 03/17/21 02:14 Troponin I High Sens 13.6 ng/L (4.0-60.0) 03/17/21 02:14 C-Reactive Protein 12.10 mg/L (0-3.0) H 03/16/21 05:17 Total Protein 6.2 g/dL (6.4-8.2) L 03/22/21 04:43 Albumin 2.4 g/dL (3.4-5.0) L 03/22/21 04:43 Globulin 3.8 g/dL (2.5-4.5) 03/22/21 04:43 Albumin/Globulin Ratio 0.6 Ratio (1.1-2.1) L 03/22/21 04:43 SARS CoV-2 RNA Rapid XIANG Positive (NEGATIVE) A 03/13/21 21:56 - Plan (1) SBO (small bowel obstruction) Status: Resolved Plan: Tolerating food and liquids po. Resolved. General surgery. Patient having adequate BMs (2) COVID Status: Acute Plan: IV abx. IV Steroids. Duo mebs. Supplemental oxygen. Improved (3) HTN (hypertension) Status: Chronic Plan: BP meds adjusted (4) CAD (coronary artery disease) Status: Chronic Qualifiers: Coronary Disease-Associated Artery/Lesion type: [place] artery [place] vs. transplanted heart: [place] heart Associated angina: without angina Qualified Code(s): I25.10 - Atherosclerotic heart disease of [place] coronary artery without angina pectoris Plan: History of heart cath approximately 2013. Unknown whether she had stents placed at that time but she does report a blockage; unknown percent. stable (5) CKD (chronic kidney disease) stage 5, GFR less than 15 ml/min Status: Chronic Plan: Observe with follow up labs. Worsened (6) Pneumonia due to COVID-19 virus Status: Acute Plan: Trend CXR, ABG. Zithromax, renal dose Zosyn. Steroids. oxygen. Duo nebs (7) GERD (gastroesophageal reflux disease) Status: Acute Plan: IV protonix, malox prn
[2021-03-22] MEDS: MELATONIN PO SCH (20:01)
[2021-03-23] MEDS: APRESOLINE TAB 25 MG PO SCH ×4 (03:31→20:43)
[2021-03-23] MEDS: SOLU-Medrol 125 MG VIAL IVP SCH ×3 (05:43→21:00)
[2021-03-23] MEDS: NS 1,000 ML IV 1,000 ML IV SCH (05:43)
[2021-03-23] MEDS: ZOSYN VIAL 2.25 GRAMS 2.25 G in NS 100 ML IV + SPIKE MINIBAG* 100 ML IV SCH ×3 (05:43→21:00)
[2021-03-23 05:56] LABS: ABG ALLEN TEST POS; ABG BASE EXCESS -7.3 mmol/L (-2.0-2.0)
[2021-03-23 06:19] LABS: BASOPHILS % (AUTO) 0.1 % (0.2-1.0); HEMATOCRIT 32.6 % (36.0-47.0); HEMOGLOBIN 10.6 g/dL (12.0-16.0); LYMPHOCYTES # (AUTO) 0.4 X10^3/uL (1.3-2.9); LYMPHOCYTES % (AUTO) 2.3 % (21.0-51.0); MEAN CORPUSCULAR HEMOGLOBIN 27.2 pg (27.0-34.0); MEAN CORPUSCULAR HGB CONC 32.6 g/dL (33.0-35.0); MEAN CORPUSCULAR VOLUME 83.5 fL (80.0-100.0); MEAN PLATELET VOLUME 8.2 fL (7.4-11.0); MONOCYTES % (AUTO) 5.5 % (0.0-13.0); NEUTROPHILS # (AUTO) 17.3 x10^3/uL (2.2-4.8); NEUTROPHILS % (AUTO) 92.1 % (42.0-75.0); RED CELL DISTRIBUTION WIDTH 14.6 % (11.6-16.5); WHITE BLOOD COUNT 18.7 X10^3/uL (3.6-10.0)
[2021-03-23 06:51] LABS: ALBUMIN 2.5 g/dL (3.4-5.0); CALCIUM 8.6 mg/dL (8.5-10.1); CARBON DIOXIDE 17.4 mmol/L (21-32); COR CA(FOR HYPOALB) 9.8 mg/dL (8.5-10.1); CREATININE 5.41 mg/dL (0.55-1.02); TOTAL PROTEIN 6.3 g/dL (6.4-8.2)
[2021-03-23 07:16] LABS: BAND NEUTROPHILS % 1 % (0-10); PLATELET MORPHOLOGY COMMENT NORMAL (NORMAL)
--- NOTE | 2021-03-23 07:17 | RAD ---
HISTORYCOVID+, SOBSTUDYCHEST, 1 [id number]/24/2022.TECHNIQUEAP view of the chestFINDINGSCardiac and mediastinal contours are within normal limits. Similar appearance of bibasilar interstitial opacities. No definite pleural effusion or pneumothorax. Soft tissue attenuation limits evaluation.IMPRESSIONNo significant change.Electronically signed by: Isma Antoine (Mar 23, 2021 07:16:10)
[2021-03-23] MEDS: ZITHROMAX INJ 500 MG VIAL 250 MG in NS 250 ML IV 250 ML IV SCH (08:46)
[2021-03-23] MEDS: PROTONIX INJ 40 MG VIAL IVP SCH ×2 (08:46→20:45)
[2021-03-23] MEDS: LOVENOX INJ 30 MG SYR SC SCH (08:47)
[2021-03-23] MEDS: CHRONULAC PO SCH (08:49)
[2021-03-23] MEDS: NORVASC TAB 10 MG PO SCH (08:51)
[2021-03-23] MEDS: CHLORTHALIDONE PO SCH (08:51)
[2021-03-23] MEDS: COREG TAB 25 MG PO SCH ×2 (08:51→20:45)
[2021-03-23] MEDS: LIPITOR TAB 80 MG PO SCH (08:51)
[2021-03-23] MEDS: ZESTRIL TAB 40 MG PO SCH (08:52)
[2021-03-23] MEDS: PEPCID TAB 20 MG PO SCH (08:52)
[2021-03-23] MEDS: PULMICORT NEB TX 0.5 MG NEB SCH ×2 (08:53→21:45)
[2021-03-23] MEDS: BROVANA IN SCH ×2 (08:53→21:45)
[2021-03-23] MEDS: MELATONIN PO SCH (20:44)
--- NOTE | 2021-03-24 02:09 | PCM.PROG ---
Progress Note - Progress Note for Day of Date of Exam: 03/23/21 - Subjective Subjective: Patient is a 56 year old AAF who was admitted due to SBO r/o. Patient tested positive for COVID 19 virus upon admission and was not having symptoms of COVID 19 at that time however she has since developed symptoms. Patient had SOB; she reports her SOB has resolved. Patient reports abdominal p ain has resolved. Denies N/V. Reports good adequate BMs. Patient's overall respiratory and GI condition has improved. However kidney function has again slightly worsened. Plan for possible discharge home in am pending labs/kidney improvement. Patient states she is ready to go home. - Past Medical Family Social History Past Med/Fam/Surg Hx: No changes since H&P Allergies: Allergies diphenhydramine [From Benadryl] Allergy (Verified 06/08/17 13:35) - Review of Systems ROS: No change since H&P - Vital Signs and I&O's Vital Signs: Temperature 99.3 F Pulse Rate 83 Respiratory Rate 21 Blood Pressure [Right Arm] 133/70 Blood Pressure 156/88 O2 Sat by Pulse Oximetry 97 Intake and Output: Intake & Output 03/21/21 03/22/21 03/23/21 03/24/21 23:59 23:59 23:59 23:59 Intake Total 2063 1762 / 1762 742 / 742 375 / 375 Output Total Balance 2060 1758 / 1758 742 / 742 375 / 375 - Physical Exam Oriented: Normal, Time, Person, Place Eyes: Normal Ear: Normal Nose: Normal Throat: Normal Respiratory: Generalized, Diminished Cardiovascular: Normal : Normal Auscultation: Bowel Sounds: Normal Palpation: Normal Tenderness: Normal Skin: Normal Musculoskeletal: Normal Psychiatric: Normal Mood Description: Calm Affect: Normal Speech Pattern: Clear, Appropriate - Laboratory and Diagnostics Result Diagrams: 03/23/21 05:24 03/23/21 05:24 Labs: 03/15/21 11:11 Blood Blood Culture - Final 03/15/21 11:00 Blood Blood Culture - Final Laboratory WBC 18.7 X10^3/uL (3.6-10.0) H 03/23/21 05:24 RBC 3.90 X10^6/uL (3.5-5.4) 03/23/21 05:24 Hgb 10.6 g/dL (12.0-16.0) L 03/23/21 05:24 Hct 32.6 % (36.0-47.0) L 03/23/21 05:24 MCV 83.5 fL (80.0-100.0) 03/23/21 05:24 MCH 27.2 pg (27.0-34.0) 03/23/21 05:24 MCHC 32.6 g/dL (33.0-35.0) L 03/23/21 05:24 RDW 14.6 % (11.6-16.5) 03/23/21 05:24 Plt Count 241 X10^3/uL (150.0-450.0) 03/23/21 05:24 Plt Count Comment Adequate (ADEQUATE) 03/23/21 05:24 MPV 8.2 fL (7.4-11.0) 03/23/21 05:24 Neut % (Auto) 92.1 % (42.0-75.0) H 03/23/21 05:24 Lymph % (Auto) 2.3 % (21.0-51.0) L 03/23/21 05:24 [place] % (Auto) 5.5 % (0.0-13.0) 03/23/21 05:24 Eos % (Auto) 0.0 % (0.9-2.9) L 03/23/21 05:24 Baso % (Auto) 0.1 % (0.2-1.0) L 03/23/21 05:24 Neut # (Auto) 17.3 x10^3/uL (2.2-4.8) H 03/23/21 05:24 Lymph # (Auto) 0.4 X10^3/uL (1.3-2.9) L 03/23/21 05:24 [place] # (Auto) 1.0 x10^3/uL (0.3-0.8) H 03/23/21 05:24 Eos # (Auto) 0.0 x10^3/uL (0.0-0.2) 03/23/21 05:24 Baso # (Auto) 0.0 X10^3/uL (0.0-0.1) 03/23/21 05:24 Absolute Nucleated RBC 0.0 /100WBC 03/23/21 05:24 Total Counted 100 03/23/21 05:24 Neutrophils % (Manual) 88 % (39-76) H 03/23/21 05:24 Band Neutrophils % 1 % (0-10) 03/23/21 05:24 Lymphocytes % (Manual) 6 % (13-43) L 03/23/21 05:24 Monocytes % (Manual) 5 % (4-9) 03/23/21 05:24 Plt Morphology Comment Normal (NORMAL) 03/23/21 05:24 RBC Morphology Normal (NORMAL) 03/23/21 05:24 Hypochromasia Slight A 03/21/21 05:40 Sample Site Lr 03/23/21 05:00 ABG pH 7.320 (7.35-7.45) L 03/23/21 05:00 ABG pCO2 35.0 mmHg (35.0-45.0) 03/23/21 05:00 ABG pO2 68.0 mmHg (80.0-100.0) L 03/23/21 05:00 ABG HCO3 18.0 mmol/L (22-26) L 03/23/21 05:00 ABG O2 Saturation 92.0 % (90-100) 03/23/21 05:00 ABG Base Excess -7.3 mmol/L (-2.0-2.0) L 03/23/21 05:00 Kemal Test Pos 03/23/21 05:00 A-a Gradient 38.0 mmHg 03/23/21 05:00 FiO2 21.0 03/23/21 05:00 Blood Gas Comments [facility] 03/23/21 05:00 Sodium 144 mmol/L (136-145) 03/23/21 05:24 Corrected Sodium 145 mmol/L (136-145) 03/23/21 05:24 Potassium 3.5 mmol/L (3.5-5.1) 03/23/21 05:24 Chloride 110 mmol/L (98-107) H 03/23/21 05:24 Carbon Dioxide 17.4 mmol/L (21-32) L 03/23/21 05:24 BUN 86 mg/dL (7-18) H 03/23/21 05:24 Creatinine 5.41 mg/dL (0.55-1.02) H 03/23/21 05:24 Est GFR (MDRD) Af Amer 11 (>60) L 03/23/21 05:24 Est GFR (MDRD) Non-Af 9 (>60) L 03/23/21 05:24 Glucose 153 mg/dL (65-99) H 03/23/21 05:24 Calcium 8.6 mg/dL (8.5-10.1) 03/23/21 05:24 Corrected Calcium 9.8 mg/dL (8.5-10.1) 03/23/21 05:24 Magnesium 2.4 mg/dL (1.7-2.9) 03/22/21 04:43 Total Bilirubin 0.30 mg/dL (0.2-1.0) 03/23/21 05:24 AST 15 Units/L (15-37) 03/23/21 05:24 ALT 28 Units/L (12-78) 03/23/21 05:24 Alkaline Phosphatase 46 Units/L (46-116) 03/23/21 05:24 Creatine Kinase 27 Units/L (26-192) 03/17/21 02:14 CK-MB (CK-2) < 1.0 ng/mL (0-4.0) 03/17/21 02:14 CK/CKMB % Calc 3.7 % (<4) 03/17/21 02:14 Troponin I High Sens 13.6 ng/L (4.0-60.0) 03/17/21 02:14 C-Reactive Protein 12.10 mg/L (0-3.0) H 03/16/21 05:17 Total Protein 6.3 g/dL (6.4-8.2) L 03/23/21 05:24 Albumin 2.5 g/dL (3.4-5.0) L 03/23/21 05:24 Globulin 3.8 g/dL (2.5-4.5) 03/23/21 05:24 Albumin/Globulin Ratio 0.7 Ratio (1.1-2.1) L 03/23/21 05:24 SARS CoV-2 RNA Rapid XIANG Positive (NEGATIVE) A 03/13/21 21:56 - Plan (1) SBO (small bowel obstruction) Status: Resolved Plan: Tolerating food and liquids po. Resolved. General surgery. Patient having adequate BMs (2) COVID Status: Acute Plan: IV abx. IV Steroids. Duo mebs. Supplemental oxygen. Improved (3) HTN (hypertension) Status: Chronic Plan: BP meds adjusted (4) CAD (coronary artery disease) Status: Chronic Qualifiers: Coronary Disease-Associated Artery/Lesion type: [place] artery [place] vs. transplanted heart: [place] heart Associated angina: without angina Qualified Code(s): I25.10 - Atherosclerotic heart disease of [place] coronary artery without angina pectoris Plan: History of heart cath approximately 2013. Unknown whether she had stents placed at that time but she does report a blockage; unknown percent. stable (5) CKD (chronic kidney disease) stage 5, GFR less than 15 ml/min Status: Chronic Plan: Observe with follow up labs. Worsened. 250cc bolus (6) Pneumonia due to COVID-19 virus Status: Acute Plan: Trend CXR, ABG. Zithromax, renal dose Zosyn. Steroids. oxygen. Duo nebs (7) GERD (gastroesophageal reflux disease) Status: Acute Plan: IV protonix, malox prn
[2021-03-24] MEDS: APRESOLINE TAB 25 MG PO SCH ×4 (02:36→21:19)
[2021-03-24] MEDS: ZOSYN VIAL 2.25 GRAMS 2.25 G in NS 100 ML IV + SPIKE MINIBAG* 100 ML IV SCH ×3 (05:04→21:19)
[2021-03-24] MEDS: NS 1,000 ML IV 1,000 ML IV SCH ×2 (05:05→16:30)
[2021-03-24] MEDS: SOLU-Medrol 125 MG VIAL IVP SCH (05:07)
[2021-03-24 06:37] LABS: BASOPHILS % (AUTO) 0.1 % (0.2-1.0); HEMATOCRIT 30.5 % (36.0-47.0); HEMOGLOBIN 9.9 g/dL (12.0-16.0); LYMPHOCYTES # (AUTO) 0.4 X10^3/uL (1.3-2.9); LYMPHOCYTES % (AUTO) 1.8 % (21.0-51.0); MEAN CORPUSCULAR HGB CONC 32.5 g/dL (33.0-35.0); MEAN CORPUSCULAR VOLUME 83.1 fL (80.0-100.0); MONOCYTES # (AUTO) 1.2 x10^3/uL (0.3-0.8); MONOCYTES % (AUTO) 5.7 % (0.0-13.0); NEUTROPHILS # (AUTO) 19.6 x10^3/uL (2.2-4.8); NEUTROPHILS % (AUTO) 92.4 % (42.0-75.0); RED BLOOD COUNT 3.67 X10^6/uL (3.5-5.4); RED CELL DISTRIBUTION WIDTH 14.9 % (11.6-16.5); WHITE BLOOD COUNT 21.2 X10^3/uL (3.6-10.0)
[2021-03-24 07:01] LABS: ALBUMIN 2.5 g/dL (3.4-5.0); CALCIUM 8.6 mg/dL (8.5-10.1); COR CA(FOR HYPOALB) 9.8 mg/dL (8.5-10.1); CREATININE 5.43 mg/dL (0.55-1.02)
--- NOTE | 2021-03-24 07:05 | RAD ---
HISTORYCOVID+STUDYCHEST, 1 [id number]/26/2022.TECHNIQUEAP view of the chestFINDINGSCardiac and mediastinal contours are within normal limits. Mild improvement of bibasilar interstitial opacities. No definite pleural effusion or pneumothorax.IMPRESSIONMild improvement of bibasilar interstitial opacities consistent with improved COVID 19 pneumonia.Electronically signed by: Isma Antoine (Mar 24, 2021 07:04:00)
[2021-03-24 07:07] LABS: BAND NEUTROPHILS % 1 % (0-10); PLATELET MORPHOLOGY COMMENT NORMAL (NORMAL)
[2021-03-24] MEDS: BROVANA IN SCH ×2 (08:40→21:03)
[2021-03-24] MEDS: PULMICORT NEB TX 0.5 MG NEB SCH ×2 (08:40→21:03)
[2021-03-24] MEDS ORDERED: NS 1,000 ML IV 1,000 ML IV ONE (09:10)
[2021-03-24] MEDS: NS 250 ML IV 250 ML IV SCH (09:22)
[2021-03-24] MEDS: ZITHROMAX INJ 500 MG VIAL 250 MG in NS 250 ML IV 250 ML IV SCH (09:23)
[2021-03-24] MEDS: PROTONIX INJ 40 MG VIAL IVP SCH ×2 (09:24→20:16)
[2021-03-24] MEDS: NORVASC TAB 10 MG PO SCH (09:24)
[2021-03-24] MEDS: CHLORTHALIDONE PO SCH (09:24)
[2021-03-24] MEDS: COREG TAB 25 MG PO SCH (09:25)
[2021-03-24] MEDS: PEPCID TAB 20 MG PO SCH (09:25)
[2021-03-24] MEDS: ZESTRIL TAB 40 MG PO SCH (09:25)
[2021-03-24] MEDS: LIPITOR TAB 80 MG PO SCH (09:25)
[2021-03-24] MEDS: CHRONULAC PO SCH (09:33)
[2021-03-24] MEDS: LOVENOX INJ 30 MG SYR SC SCH (09:40)
[2021-03-24] MEDS: PREDNISONE TAB 20 MG PO SCH (09:53)
--- NOTE | 2021-03-24 14:02 | PCM.PROG ---
Progress Note - Subjective Subjective: Patient is a 56 year old AAF who was admitted due to ileus, COVID pneumonia, and CKD. Patient is eating and drinking normally and having regular BMs (ileus resolved). Patient's overall respiratory and GI condition has improved. However kidney function has again slightly worsened. This is likely due to ATN from hypoxia, pneumonia, and SBO. Once kidney function improves patient will discharged home to follow up with nephrology. - Past Medical Family Social History Past Med/Fam/Surg Hx: No changes since H&P Allergies: Allergies diphenhydramine [From Benadryl] Allergy (Verified 06/08/17 13:35) - Review of Systems ROS: No change since H&P - Vital Signs and I&O's Vital Signs: Temperature 98.7 F Pulse Rate 87 Respiratory Rate 16 Blood Pressure [Right Arm] 133/70 Blood Pressure 136/73 O2 Sat by Pulse Oximetry 95 Intake and Output: Intake & Output 03/21/21 03/22/21 03/23/21 03/24/21 23:59 23:59 23:59 23:59 Intake Total 2063 1762 / 1762 742 / 742 1041 / 1041 Output Total 4 / Balance 2060 1758 / 1758 742 / 742 1041 / 1041 - Physical Exam Oriented: Normal, Time, Person, Place Eyes: Normal Ear: Normal Nose: Normal Throat: Normal Respiratory: Generalized, Diminished Cardiovascular: Normal : Normal Auscultation: Bowel Sounds: Normal Palpation: Normal Tenderness: Normal Skin: Normal Musculoskeletal: Normal Psychiatric: Normal Mood Description: Calm Affect: Normal Speech Pattern: Clear, Appropriate - Laboratory and Diagnostics Result Diagrams: 03/24/21 06:00 03/24/21 06:00 Labs: 03/15/21 11:11 Blood Blood Culture - Final 03/15/21 11:00 Blood Blood Culture - Final Laboratory WBC 21.2 X10^3/uL (3.6-10.0) H 03/24/21 06:00 RBC 3.67 X10^6/uL (3.5-5.4) 03/24/21 06:00 Hgb 9.9 g/dL (12.0-16.0) L 03/24/21 06:00 Hct 30.5 % (36.0-47.0) L 03/24/21 06:00 MCV 83.1 fL (80.0-100.0) 03/24/21 06:00 MCH 27.0 pg (27.0-34.0) 03/24/21 06:00 MCHC 32.5 g/dL (33.0-35.0) L 03/24/21 06:00 RDW 14.9 % (11.6-16.5) 03/24/21 06:00 Plt Count 225 X10^3/uL (150.0-450.0) 03/24/21 06:00 Plt Count Comment Adequate (ADEQUATE) 03/24/21 06:00 MPV 8.0 fL (7.4-11.0) 03/24/21 06:00 Neut % (Auto) 92.4 % (42.0-75.0) H 03/24/21 06:00 Lymph % (Auto) 1.8 % (21.0-51.0) L 03/24/21 06:00 [place] % (Auto) 5.7 % (0.0-13.0) 03/24/21 06:00 Eos % (Auto) 0.0 % (0.9-2.9) L 03/24/21 06:00 Baso % (Auto) 0.1 % (0.2-1.0) L 03/24/21 06:00 Neut # (Auto) 19.6 x10^3/uL (2.2-4.8) H 03/24/21 06:00 Lymph # (Auto) 0.4 X10^3/uL (1.3-2.9) L 03/24/21 06:00 [place] # (Auto) 1.2 x10^3/uL (0.3-0.8) H 03/24/21 06:00 Eos # (Auto) 0.0 x10^3/uL (0.0-0.2) 03/24/21 06:00 Baso # (Auto) 0.0 X10^3/uL (0.0-0.1) 03/24/21 06:00 Absolute Nucleated RBC 0.0 /100WBC 03/24/21 06:00 Total Counted 100 03/24/21 06:00 Neutrophils % (Manual) 92 % (39-76) H 03/24/21 06:00 Band Neutrophils % 1 % (0-10) 03/24/21 06:00 Lymphocytes % (Manual) 6 % (13-43) L 03/24/21 06:00 Monocytes % (Manual) 1 % (4-9) L 03/24/21 06:00 Plt Morphology Comment Normal (NORMAL) 03/24/21 06:00 RBC Morphology Normal (NORMAL) 03/24/21 06:00 Hypochromasia Slight A 03/21/21 05:40 Sample Site Lr 03/23/21 05:00 ABG pH 7.320 (7.35-7.45) L 03/23/21 05:00 ABG pCO2 35.0 mmHg (35.0-45.0) 03/23/21 05:00 ABG pO2 68.0 mmHg (80.0-100.0) L 03/23/21 05:00 ABG HCO3 18.0 mmol/L (22-26) L 03/23/21 05:00 ABG O2 Saturation 92.0 % (90-100) 03/23/21 05:00 ABG Base Excess -7.3 mmol/L (-2.0-2.0) L 03/23/21 05:00 Kemal Test Pos 03/23/21 05:00 A-a Gradient 38.0 mmHg 03/23/21 05:00 FiO2 21.0 03/23/21 05:00 Blood Gas Comments [facility] 03/23/21 05:00 Sodium 144 mmol/L (136-145) 03/24/21 06:00 Corrected Sodium 145 mmol/L (136-145) 03/24/21 06:00 Potassium 3.7 mmol/L (3.5-5.1) 03/24/21 06:00 Chloride 111 mmol/L (98-107) H 03/24/21 06:00 Carbon Dioxide 19.0 mmol/L (21-32) L 03/24/21 06:00 BUN 94 mg/dL (7-18) H 03/24/21 06:00 Creatinine 5.43 mg/dL (0.55-1.02) H 03/24/21 06:00 Est GFR (MDRD) Af Amer 11 (>60) L 03/24/21 06:00 Est GFR (MDRD) Non-Af 9 (>60) L 03/24/21 06:00 Glucose 145 mg/dL (65-99) H 03/24/21 06:00 Calcium 8.6 mg/dL (8.5-10.1) 03/24/21 06:00 Corrected Calcium 9.8 mg/dL (8.5-10.1) 03/24/21 06:00 Magnesium 2.4 mg/dL (1.7-2.9) 03/22/21 04:43 Total Bilirubin 0.30 mg/dL (0.2-1.0) 03/24/21 06:00 AST 17 Units/L (15-37) 03/24/21 06:00 ALT 34 Units/L (12-78) 03/24/21 06:00 Alkaline Phosphatase 45 Units/L (46-116) L 03/24/21 06:00 Creatine Kinase 27 Units/L (26-192) 03/17/21 02:14 CK-MB (CK-2) < 1.0 ng/mL (0-4.0) 03/17/21 02:14 CK/CKMB % Calc 3.7 % (<4) 03/17/21 02:14 Troponin I High Sens 13.6 ng/L (4.0-60.0) 03/17/21 02:14 C-Reactive Protein 12.10 mg/L (0-3.0) H 03/16/21 05:17 Total Protein 6.0 g/dL (6.4-8.2) L 03/24/21 06:00 Albumin 2.5 g/dL (3.4-5.0) L 03/24/21 06:00 Globulin 3.5 g/dL (2.5-4.5) 03/24/21 06:00 Albumin/Globulin Ratio 0.7 Ratio (1.1-2.1) L 03/24/21 06:00 SARS CoV-2 RNA Rapid XIANG Positive (NEGATIVE) A 03/13/21 21:56 - Plan (1) SBO (small bowel obstruction) Status: Resolved Plan: Tolerating food and liquids po. Resolved. General surgery. Patient having adequate BMs (2) COVID Status: Acute Plan: IV abx. IV Steroids. Duo mebs. Supplemental oxygen. Improved (3) HTN (hypertension) Status: Chronic Plan: BP meds adjusted (4) CAD (coronary artery disease) Status: Chronic Qualifiers: Coronary Disease-Associated Artery/Lesion type: [place] artery [place] vs. [place] ansplanted heart: [place] heart Associated angina: without angina Qualified Code(s): I25.10 - Atherosclerotic heart disease of [place] coronary artery without angina pectoris Plan: History of heart cath approximately 2013. Unknown whether she had stents placed at that time but she does report a blockage; unknown percent. stable (5) CKD (chronic kidney disease) stage 5, GFR less than 15 ml/min Status: Chronic Plan: Observe with follow up labs. Worsened. 1 Liter bolus then NS at KVO (6) Pneumonia due to COVID-19 virus Status: Acute Plan: Trend CXR, ABG. Zithromax, renal dose Zosyn. Steroids. oxygen. Duo nebs (7) GERD (gastroesophageal reflux disease) Status: Acute Plan: IV protonix, malox prn
[2021-03-24] MEDS ORDERED: ULTRAM PO PRN (15:44)
[2021-03-24] MEDS ORDERED: CATAPRES TAB 0.2 MG PO PRN (15:44)
[2021-03-24 16:10] LABS: URIC ACID 8.9 mg/dL (2.6-6.0)
[2021-03-24] MEDS: COREG TAB 12.5 MG PO SCH ×3 (16:37→20:20)
[2021-03-24] MEDS: PROCARDIA XL 24-hr PO SCH (16:39)
[2021-03-24] MEDS: ZOVIRAX TOP SCH ×2 (16:39→20:18)
[2021-03-24] MEDS: MELATONIN PO SCH (20:16)
[2021-03-25] MEDS: ZOVIRAX TOP SCH ×4 (00:55→13:47)
[2021-03-25] MEDS: NS 1,000 ML IV 1,000 ML IV SCH ×2 (00:55→09:01)
[2021-03-25] MEDS: ZOSYN VIAL 2.25 GRAMS 2.25 G in NS 100 ML IV + SPIKE MINIBAG* 100 ML IV SCH (05:31)
[2021-03-25] MEDS: APRESOLINE TAB 25 MG PO SCH ×2 (05:31→13:51)
--- NOTE | 2021-03-25 05:57 | RAD ---
PROCEDURE: Chest X-ray 1 View .HISTORY: Hypoxia.TECHNIQUE: AP view .COMPARISON: 03/24/2021.TECHNICAL QUALITY: Satisfactory .FINDINGS:Normal size heart .Mediastinum and hilar regions show no masses or lymphadenopathy .Normal central vascularity .No pulmonary consolidation, masses, pleural fluid, or pneumothorax .No acute bony abnormality .IMPRESSION:No active cardiopulmonary disease .Electronically signed by: Willy Garcia (Mar 25, 2021 05:55:06)
[2021-03-25 06:16] LABS: BASOPHILS % (AUTO) 0 % (0.2-1.0); HEMATOCRIT 28.6 % (36.0-47.0); HEMOGLOBIN 9.3 g/dL (12.0-16.0); LYMPHOCYTES # (AUTO) 0.7 X10^3/uL (1.3-2.9); LYMPHOCYTES % (AUTO) 3.7 % (21.0-51.0); MEAN CORPUSCULAR HGB CONC 32.6 g/dL (33.0-35.0); MEAN CORPUSCULAR VOLUME 82.7 fL (80.0-100.0); MEAN PLATELET VOLUME 8.2 fL (7.4-11.0); MONOCYTES # (AUTO) 1.5 x10^3/uL (0.3-0.8); MONOCYTES % (AUTO) 8.5 % (0.0-13.0); NEUTROPHILS # (AUTO) 15.6 x10^3/uL (2.2-4.8); NEUTROPHILS % (AUTO) 87.8 % (42.0-75.0); RED BLOOD COUNT 3.46 X10^6/uL (3.5-5.4); RED CELL DISTRIBUTION WIDTH 14.9 % (11.6-16.5); WHITE BLOOD COUNT 17.8 X10^3/uL (3.6-10.0)
[2021-03-25 06:36] LABS: ALANINE AMINOTRANSFERASE 32 Units/L (12-78); ALBUMIN 2.3 g/dL (3.4-5.0); ALKALINE PHOSPHATASE 40 Units/L (46-116); ASPARTATE AMINO TRANSFERASE 16 Units/L (15-37); BLOOD UREA NITROGEN 90 mg/dL (7-18); CALCIUM 8.4 mg/dL (8.5-10.1); CARBON DIOXIDE 17.7 mmol/L (21-32); CHLORIDE 112 mmol/L (98-107); COR CA(FOR HYPOALB) 9.8 mg/dL (8.5-10.1); CREATININE 4.89 mg/dL (0.55-1.02); SODIUM 144 mmol/L (136-145); TOTAL PROTEIN 5.4 g/dL (6.4-8.2); eGFR NON BLACK RACES 10 (>60)
[2021-03-25] MEDS: PROTONIX INJ 40 MG VIAL IVP SCH (08:43)
[2021-03-25] MEDS: LOVENOX INJ 30 MG SYR SC SCH (08:43)
[2021-03-25] MEDS: ZESTRIL TAB 40 MG PO SCH (08:44)
[2021-03-25] MEDS: PEPCID TAB 20 MG PO SCH (08:44)
[2021-03-25] MEDS: PREDNISONE TAB 20 MG PO SCH (08:44)
[2021-03-25] MEDS: CHLORTHALIDONE PO SCH (08:44)
[2021-03-25] MEDS: COREG TAB 12.5 MG PO SCH (08:44)
[2021-03-25] MEDS: PROCARDIA XL 24-hr PO SCH (08:44)
[2021-03-25] MEDS: ZITHROMAX INJ 500 MG VIAL 250 MG in NS 250 ML IV 250 ML IV SCH (08:45)
[2021-03-25] MEDS: LIPITOR TAB 80 MG PO SCH (08:45)
[2021-03-25] MEDS: CHRONULAC PO SCH (09:01)
--- NOTE | 2021-03-25 09:19 | US ---
HISTORYElevated serum creatinineSTUDYBilateral renal sonogramTechnique: Multiple grayscale sonographic images were obtained.COMPARISONNoneFINDINGSRight kidney measured 8 x 4.5 x 5 cm. Cortical thickness is normal. There is increased cortical echogenicity suggestive of medical renal disease. No hydronephrosis, stones, masses, or perinephric fluid collections are identified. Left kidney measured 8.6 x 4 x 5 cm. Cortical thickness is normal. Cortical echogenicity is increased suggestive of medical renal disease. No solid masses, hydronephrosis, stones, or perinephric fluid collections are identified.IMPRESSIONNo evidence for hydronephrosisBilaterally increased cortical echogenicity suggestive of medical renal diseaseElectronically signed by: ANDRA MATHEWS (Mar 25, 2021 09:18:23)
[2021-03-25] MEDS: PULMICORT NEB TX 0.5 MG NEB SCH (10:08)
[2021-03-25] MEDS: BROVANA IN SCH (10:08)
--- NOTE | 2021-03-25 12:46 | W.DIS.FURT ---
Discharge Plan - Discharge Plan Hospital Course: Admit date 03/13/21 Discharge Date03/25/21 DOS 03/25/21 Admit diagnosis(1) HTN (hypertension): (2) SBO (small bowel obstruction): (3) CAD (coronary artery disease): (4) COVID: (5) CKD (chronic kidney disease) stage 5, GFR less than 15 ml/min: Discharge diagnosis1) Ileus (2) COVID (3) HTN (hypertension) (4) CAD (coronary artery disease) (5) CKD (chronic kidney disease) stage 5, GFR less than 15 ml/min (6) Pneumonia due to COVID-19 virus (7) GERD (gastroesophageal reflux disease) (8) ATN Hospital course Patient is a 56 year old AAF who was admitted due to SOB, COVID, CKD, and CAD. Patient originally had NGT upon admission. Patient's SBO resolved and patient's diet was progressed. Patient having normal BMs and tolerating food without nausea or vomiting. Patient had COVID upon admit and developed pneumonia. Patient became hypoxic and required high felix oxygen which was tapered down and is now tolerating room air. Patient has CKD and is not on dialysis. Patient has not followed up with nephrology since before COVID pandemic. Patient has been told she will eventually be on dialysis. Electrolytes remained normal. Worsening CKD is likely due to ATN from hypoxia and COVID. This resolved and creatinine returned to baseline with IV hydration. Patient symptoms improved and patient was discharged home. See dc med rec. Patient is to follow up outpatient with PCP and nephrology. Discharge time > 30 minutes Disposition: 01 HOME, SELF-CARE Condition: Stable Health Concerns: Post Hospitalization: new medications and changes needed to prevent readmission or further decline. Pt educated and given instructions on all concerns. Care Plan Goals: Problem: Infection Goal: Temperature within normal limits. Resolved infection. Instructions: Follow provided instructions. Follow up with primary physician as directed. Contact primary care physician or report to the closest Emergency Room if condition worsens. Plan of Treatment: Continue with present treatment and follow up plan. Pt is to keep follow up appointment as instructed and take medications as ordered. Prescriptions: New azithromycin [Zithromax] 250 mg Tablet 250 mg PO ONCE Qty: 10 RF: 0 Transmission Status: Received by [facility] levofloxacin 250 mg Tablet 250 mg PO Q24H Qty: 10 RF: 0 Transmission Status: Received by [facility] Continued carvedilol 12.5 MG tablet 12.5 mg PO BID Qty: 60 RF: 0 clonidine HCl 0.2 mg tablet 0.2 mg PO TID furosemide 40 MG tablet 40 mg PO DAILY Qty: 30 RF: 0 gabapentin 100 mg Capsule 100 mg PO TID hydralazine 50 mg tablet 50 mg PO TID nifedipine 60 mg tablet extended release 24hr 60 mg PO DAILY tramadol 50 mg Tablet 50 mg PO DAILY - Follow ups/Referrals Follow ups/Referrals: JEREMÍAS SHEA [Primary Care Provider] - 3 days - Instructions Instructions: COVID-19 Frequently Asked Questions, Urinary Tract Infection, Adult, COVID-19, COVID-19: Quarantine vs. Isolation - CDC (02/12/2020), Chronic Kidney Disease, Adult
[2021-03-25 13:46] VITALS: BP 133/88
== END 2021-03-25 14:05 | disposition home or self-care (01) | DRG 193 ==
LOC: ER 18:43 → MED/SURG 21:57 → ICU 22:23 → MED/SURG 03-23 14:50
PROVIDERS: ADMIT Surgery; ATTEND Internal Medicine

== ENCOUNTER 2023-08-02 15:39 | Inpatient (IN) ==
[2023-08-02] MEDS ORDERED: LASIX PO PRN (21:57)
[2023-08-02 22:05] VITALS: BMI 29.0
[2023-08-02 22:18] LABS: BASOPHILS # (AUTO) 0.1 X10^3/uL (0.0-0.1); BASOPHILS % (AUTO) 1.4 % (0.2-1.0); EOSINOPHILS # (AUTO) 0.9 x10^3/uL (0.0-0.2); EOSINOPHILS % (AUTO) 8.6 % (0.9-2.9); HEMATOCRIT 25.2 % (36.0-47.0); HEMOGLOBIN 8.3 g/dL (12.0-16.0); LYMPHOCYTES % (AUTO) 20.7 % (21.0-51.0); MEAN CORPUSCULAR HEMOGLOBIN 28.5 pg (27.0-34.0); MEAN CORPUSCULAR HGB CONC 32.7 g/dL (33.0-35.0); MEAN CORPUSCULAR VOLUME 87.3 fL (80.0-100.0); MONOCYTES # (AUTO) 0.5 x10^3/uL (0.3-0.8); MONOCYTES % (AUTO) 5.2 % (0.0-13.0); NEUTROPHILS # (AUTO) 6.3 x10^3/uL (2.2-4.8); NEUTROPHILS % (AUTO) 64.1 % (42.0-75.0); PLATELET COUNT 168 X10^3/uL (150.0-450.0); RED BLOOD COUNT 2.89 X10^6/uL (3.5-5.4); RED CELL DISTRIBUTION WIDTH 16.3 % (11.6-16.5); WHITE BLOOD COUNT 9.9 X10^3/uL (3.6-10.0)
[2023-08-02 22:34] LABS: ALANINE AMINOTRANSFERASE 12 Units/L (12-78); ALBUMIN 3.5 g/dL (3.4-5.0); ALKALINE PHOSPHATASE 74 Units/L (46-116); ASPARTATE AMINO TRANSFERASE 8 Units/L (15-37); BLOOD UREA NITROGEN 68 mg/dL (7-18); CARBON DIOXIDE 23.4 mmol/L (21-32); CHLORIDE 109 mmol/L (98-107); CREATININE 6.16 mg/dL (0.55-1.02); GLUCOSE 92 mg/dL (65-99); MAGNESIUM 2.3 mg/dL (2.0-2.9); PHOSPHORUS 4.9 mg/dL (2.6-4.7); POTASSIUM 3.8 mmol/L (3.5-5.1); SODIUM 145 mmol/L (136-145); TOTAL PROTEIN 7.8 g/dL (6.4-8.2); eGFR NON BLACK RACES 7 (>60)
[2023-08-02] MEDS: APRESOLINE TAB 25 MG PO SCH (22:57)
[2023-08-02] MEDS: CATAPRES TAB 0.2 MG PO SCH (22:58)
[2023-08-02] MEDS: COREG TAB 12.5 MG PO SCH (22:58)
[2023-08-02] MEDS: NS 1,000 ML IV 1,000 ML IV SCH (22:59)
[2023-08-02 23:49] LABS: BILIRUBIN,URINE NEGATIVE (NEGATIVE); BLOOD/HEMOGLOBIN,URINE NEGATIVE (NEGATIVE); GLUCOSE, URINE NEGATIVE (NEGATIVE); KETONES,URINE NEGATIVE (NEGATIVE); LEUKOCYTE ESTERASE ,URINE 1+ (NEGATIVE); NITRITES,URINE NEGATIVE (NEGATIVE); PH,URINE 6.5 (5.0 - 8.0); PROTEIN,URINE 2+ (NEGATIVE); UROBILINOGEN,URINE NORMAL (NORMAL)
[2023-08-03 00:05] LABS: APPEARANCE,URINE CLEAR (CLEAR); BACTERIA,URINE TRACE /HPF (NEGATIVE); COLOR,URINE PALE YELLOW (YELLOW); RBC,URINE 0-2 /HPF (0-3); SQUAMOUS EPITHELIAL CELL,UR RARE /HPF (NEGATIVE)
--- NOTE | 2023-08-03 06:19 | RAD ---
EXAM:CHEST, 1 VIEWHISTORY:Pneumonia;COMPARISON: 022FINDINGS:The trachea is midline. The cardiac silhouette is enlarged with a tortuous thoracic aorta . The lungs are clear without focal infiltrate or effusion. The bony thorax is unremarkable.IMPRESSION:No acute cardiopulmonary disease.THIS IS AN ELECTRONICALLY VERIFIED FINAL REPORT08/03/2023 6:16 AM - Electronically signed by Julian Harvey MD
[2023-08-03 06:31] LABS: BASOPHILS # (AUTO) 0.1 X10^3/uL (0.0-0.1); BASOPHILS % (AUTO) 0.8 % (0.2-1.0); EOSINOPHILS # (AUTO) 0.8 x10^3/uL (0.0-0.2); EOSINOPHILS % (AUTO) 8.8 % (0.9-2.9); HEMATOCRIT 22.5 % (36.0-47.0); HEMOGLOBIN 7.5 g/dL (12.0-16.0); LYMPHOCYTES # (AUTO) 2.2 X10^3/uL (1.3-2.9); LYMPHOCYTES % (AUTO) 24.2 % (21.0-51.0); MEAN CORPUSCULAR HEMOGLOBIN 28.9 pg (27.0-34.0); MEAN CORPUSCULAR HGB CONC 33.3 g/dL (33.0-35.0); MEAN PLATELET VOLUME 7.3 fL (7.4-11.0); MONOCYTES # (AUTO) 0.5 x10^3/uL (0.3-0.8); MONOCYTES % (AUTO) 5.3 % (0.0-13.0); NEUTROPHILS # (AUTO) 5.4 x10^3/uL (2.2-4.8); NEUTROPHILS % (AUTO) 60.9 % (42.0-75.0); PLATELET COUNT 141 X10^3/uL (150.0-450.0); RED BLOOD COUNT 2.59 X10^6/uL (3.5-5.4); RED CELL DISTRIBUTION WIDTH 16.7 % (11.6-16.5); WHITE BLOOD COUNT 8.9 X10^3/uL (3.6-10.0)
[2023-08-03] MEDS ORDERED: NS 1/2 1,000 ML IV 1,000 ML IV ONE ×2 (10:30→20:19)
[2023-08-03] MEDS: PROCARDIA XL PO SCH (10:34)
[2023-08-03] MEDS: FARXIGA PO SCH (10:34)
[2023-08-03] MEDS: PriLOSEC PO SCH (10:34)
[2023-08-03] MEDS: LASIX PO SCH (10:35)
[2023-08-03] MEDS: NS 1/2 1,000 ML IV 1,000 ML IV SCH (10:36)
[2023-08-03] MEDS: ULTRAM PO SCH (10:36)
--- NOTE | 2023-08-03 12:20 | DR.H&P ---
H&P History & Physical for Day of: H&P Date: 08/02/23 Chief Complaint Chief Complaint: FATIGUE History of Present Illness History of Present Illness: PT IS 58 BF ADMIT FROM OFFICE WITH ABNORMAL LABS. PT HAS PMH OF RF AND HAS BEEN UNDER THE CARE OF DR HARLEY AND SHE REPORTS SHE MISSED LAST COUPLE OF VISITS. PT HAS PMH OF HTN AND OA. PT ADMITTED FOR EVALUATION OF ACUTE ILLNESS Past Medical History Past Medical History: Hypertension and Renal Disease Past Surgical History Surgical History: Angioplasty/Stents Family History Family Medical History: Diabetes Mellitus, Cancer and Hypertension Social History Alcohol Use: None Drug Use: None Medications Home Medications: Home Medications Medication Instructions Recorded Confirmed Type clonidine HCl 0.2 mg tablet 0.2 mg PO TID 03/14/21 06/29/23 History gabapentin 100 mg capsule 100 mg PO TID 03/14/21 06/29/23 History tramadol 50 mg tablet 50 mg PO DAILY 03/14/21 06/29/23 History buspirone 5 mg tablet 5 mg PO QDAY 12/22/22 06/29/23 History dapagliflozin propanediol 10 mg 10 mg PO QDAY 12/22/22 06/29/23 History tablet (Farxiga) omeprazole 20 mg capsule,delayed 20 mg PO QDAY 12/22/22 06/29/23 History release potassium chloride 10 mEq 10 meq PO QDAY 12/22/22 06/29/23 History tablet,extended release Allergies Allergies Allergy/AdvReac Type Severity Reaction Status Date / Time diphenhydramine Allergy Verified 06/29/23 11:08 [From Benadryl] Penicillins Allergy Verified 06/29/23 11:08 Labs 08/03/23 05:55 08/03/23 05:55 Labs: Laboratory WBC 8.9 X10^3/uL (3.6-10.0) 08/03/23 05:55 RBC 2.59 X10^6/uL (3.5-5.4) L 08/03/23 05:55 Hgb 7.5 g/dL (12.0-16.0) L 08/03/23 05:55 Hct 22.5 % (36.0-47.0) L 08/03/23 05:55 MCV 87.0 fL (80.0-100.0) 08/03/23 05:55 MCH 28.9 pg (27.0-34.0) 08/03/23 05:55 MCHC 33.3 g/dL (33.0-35.0) 08/03/23 05:55 RDW 16.7 % (11.6-16.5) H 08/03/23 05:55 Plt Count 141 X10^3/uL (150.0-450.0) L 08/03/23 05:55 MPV 7.3 fL (7.4-11.0) L 08/03/23 05:55 Neut % (Auto) 60.9 % (42.0-75.0) 08/03/23 05:55 Lymph % (Auto) 24.2 % (21.0-51.0) 08/03/23 05:55 [place] % (Auto) 5.3 % (0.0-13.0) 08/03/23 05:55 Eos % (Auto) 8.8 % (0.9-2.9) H 08/03/23 05:55 Baso % (Auto) 0.8 % (0.2-1.0) 08/03/23 05:55 Neut # (Auto) 5.4 x10^3/uL (2.2-4.8) H 08/03/23 05:55 Lymph # (Auto) 2.2 X10^3/uL (1.3-2.9) 08/03/23 05:55 [place] # (Auto) 0.5 x10^3/uL (0.3-0.8) 08/03/23 05:55 Eos # (Auto) 0.8 x10^3/uL (0.0-0.2) H 08/03/23 05:55 Baso # (Auto) 0.1 X10^3/uL (0.0-0.1) 08/03/23 05:55 Absolute Nucleated RBC 0.1 /100WBC 08/03/23 05:55 Sodium 145 mmol/L (136-145) 08/03/23 05:55 Corrected Sodium TNP 08/03/23 05:55 Potassium 3.8 mmol/L (3.5-5.1) 08/03/23 05:55 Chloride 110 mmol/L (98-107) H 08/03/23 05:55 Carbon Dioxide 21.3 mmol/L (21-32) 08/03/23 05:55 BUN 66 mg/dL (7-18) H 08/03/23 05:55 Creatinine 5.93 mg/dL (0.55-1.02) H 08/03/23 05:55 Est GFR (MDRD) Af Amer 9 (>60) L 08/03/23 05:55 Est GFR (MDRD) Non-Af 8 (>60) L 08/03/23 05:55 Glucose 95 mg/dL (65-99) 08/03/23 05:55 Calcium 8.8 mg/dL (8.5-10.1) 08/03/23 05:55 Corrected Calcium 9.5 mg/dL (8.5-10.1) 08/03/23 05:55 Phosphorus 5.1 mg/dL (2.6-4.7) H 08/03/23 05:55 Magnesium 2.3 mg/dL (2.0-2.9) 08/03/23 05:55 Total Bilirubin 0.20 mg/dL (0.2-1.0) 08/03/23 05:55 AST 7 Units/L (15-37) L 08/03/23 05:55 ALT 10 Units/L (12-78) L 08/03/23 05:55 Alkaline Phosphatase 67 Units/L (46-116) 08/03/23 05:55 Total Protein 7.0 g/dL (6.4-8.2) 08/03/23 05:55 Albumin 3.1 g/dL (3.4-5.0) L 08/03/23 05:55 Globulin 3.9 g/dL (2.5-4.5) 08/03/23 05:55 Albumin/Globulin Ratio 0.8 Ratio (1.1-2.1) L 08/03/23 05:55 Specimen Type Clean catch urine 08/02/23 23:04 Urine Color Pale yellow (YELLOW) 08/02/23 23:04 Urine Appearance Clear (CLEAR) 08/02/23 23:04 Urine pH 6.5 (5.0 - 8.0) 08/02/23 23:04 Ur Specific [place] 1.010 (1.000-1.030) 08/02/23 23:04 Urine Protein 2+ (NEGATIVE) 08/02/23 23:04 Urine Glucose (UA) Negative (NEGATIVE) 08/02/23 23:04 Urine Ketones Negative (NEGATIVE) 08/02/23 23:04 Urine Blood Negative (NEGATIVE) 08/02/23 23:04 Urine Nitrite Negative (NEGATIVE) 08/02/23 23:04 Urine Bilirubin Negative (NEGATIVE) 08/02/23 23:04 Urine Urobilinogen Normal (NORMAL) 08/02/23 23:04 Ur Leukocyte Esterase 1+ (NEGATIVE) 08/02/23 23:04 Urine RBC 0-2 /HPF (0-3) 08/02/23 23:04 Urine WBC 0-2 /HPF (0-5) 08/02/23 23:04 Ur Squamous Epith Cells Rare /HPF (NEGATIVE) 08/02/23 23:04 Urine Bacteria Trace /HPF (NEGATIVE) 08/02/23 23:04 Ur Culture Indicated? Yes/culture set up 08/02/23 23:04 Review of Systems Constitutional: Weakness and Malaise Eyes: No Symptoms Reported ENT: No Symptoms Reported Respiratory: Shortness of Breath Cardiovascular: Edema Gastrointestinal: No Symptoms Reported Genitourinary: No Symptoms Reported Musculoskeletal: Back Pain Skin: No Symptoms Reported Neurological: Weakness (DIFFUSE ) Physical Exam Vital Signs: Vital Signs Respiratory Rate 19 Oriented: Normal Eyes: Normal Nose: Discharge Throat: Normal Respiratory: RLL Diminished and LLL Diminished Cardiovascular: Murmur and Edema Auscultation: Bowel Sounds: Normal Palpation: Normal Skin: Normal Musculoskeletal: Back:Lumbar Mood Description: Calm Affect: Depressed Speech Pattern: Clear and Appropriate Assessment/Plan (1) CKD (chronic kidney disease) stage 5, GFR less than 15 ml/min: Narrative Support Text: ADMIT, GENTLE IV HYDRATION WITH STRICT I&OS BP CONTROL VERIFY HOME MEDICATIONS CXR ON ADMISISION Status: Chronic (2) Hypertensive heart disease: Status: Acute (3) GERD (gastroesophageal reflux disease): Status: Acute
[2023-08-04 05:36] LABS: BASOPHILS # (AUTO) 0.1 X10^3/uL (0.0-0.1); BASOPHILS % (AUTO) 0.8 % (0.2-1.0); EOSINOPHILS # (AUTO) 0.8 x10^3/uL (0.0-0.2); EOSINOPHILS % (AUTO) 9.8 % (0.9-2.9); HEMATOCRIT 22.4 % (36.0-47.0); HEMOGLOBIN 7.3 g/dL (12.0-16.0); LYMPHOCYTES % (AUTO) 23.1 % (21.0-51.0); MEAN CORPUSCULAR HEMOGLOBIN 28.5 pg (27.0-34.0); MEAN CORPUSCULAR HGB CONC 32.7 g/dL (33.0-35.0); MEAN CORPUSCULAR VOLUME 87.3 fL (80.0-100.0); MEAN PLATELET VOLUME 7.2 fL (7.4-11.0); MONOCYTES # (AUTO) 0.5 x10^3/uL (0.3-0.8); MONOCYTES % (AUTO) 5.7 % (0.0-13.0); NEUTROPHILS # (AUTO) 5.1 x10^3/uL (2.2-4.8); NEUTROPHILS % (AUTO) 60.6 % (42.0-75.0); PLATELET COUNT 140 X10^3/uL (150.0-450.0); RED BLOOD COUNT 2.56 X10^6/uL (3.5-5.4); RED CELL DISTRIBUTION WIDTH 16.3 % (11.6-16.5); WHITE BLOOD COUNT 8.5 X10^3/uL (3.6-10.0)
[2023-08-04 05:44] LABS: ALANINE AMINOTRANSFERASE 9 Units/L (12-78); ALKALINE PHOSPHATASE 62 Units/L (46-116); ASPARTATE AMINO TRANSFERASE 7 Units/L (15-37); BLOOD UREA NITROGEN 65 mg/dL (7-18); CALCIUM 8.4 mg/dL (8.5-10.1); CARBON DIOXIDE 21.5 mmol/L (21-32); CHLORIDE 109 mmol/L (98-107); COR CA(FOR HYPOALB) 9.2 mg/dL (8.5-10.1); CREATININE 5.74 mg/dL (0.55-1.02); GLUCOSE 95 mg/dL (65-99); SODIUM 142 mmol/L (136-145); TOTAL PROTEIN 6.9 g/dL (6.4-8.2); eGFR NON BLACK RACES 8 (>60)
--- NOTE | 2023-08-04 08:20 | RAD ---
EXAM:AP chestHISTORY:PneumoniaCOMPARISON: 024FINDINGS:Similar cardiomegaly with aortic dilatation, clear lungs and pleural spaces. There is no definite pneumonia or CHF/edema.IMPRESSION:No change or acute findings.THIS IS AN ELECTRONICALLY VERIFIED FINAL REPORT08/04/2023 8:16 AM - Electronically signed by Dagoberto Valdes MD
[2023-08-04] MEDS ORDERED: NS 1/2 1,000 ML IV 1,000 ML IV ONE ×2 (09:41→19:16)
[2023-08-04] MEDS ORDERED: NovoLIN R (or HumuLIN R) SC PRN (10:13)
--- NOTE | 2023-08-04 12:47 | PCM.PROG ---
Progress Note Progress Note for Day of Date of Exam: 08/04/23 Subjective Subjective: Patient seen at bedside, no acute events overnight. She is currently admitted for acute on chronic kidney failure. Her renal function has improved slightly with fluids. Her hemoglobin this morning was 7.3. Denies any active bleeding. Denies any nausea, vomiting or abdominal pain. Labs and imaging reviewed: -Hemoglobin 7.3 BUN: 65 creatinine: 5.74 -Urine culture no growth Plan: Repeat H&H this afternoon, if below 8 then transfuse 2 units. Order FOBT and anemia panel. Continue gentle hydration. Hold lasix. Hold Farxiga due to worsening renal function. Continue home medications. Ambulate as tolerated. Monitor a.m. labs and imaging. Past Medical Family Social History Allergies: Allergies diphenhydramine [From Benadryl] Allergy (Verified 06/29/23 11:08) Penicillins Allergy (Verified 06/29/23 11:08) Vital Signs and I&O's Vital Signs: Vital Signs Temperature 97.5 F Temperature 97.4 F Pulse Rate [Radial] 64 Pulse Rate [Radial] 66 Respiratory Rate 18 Respiratory Rate 18 Respiratory Rate 18 Respiratory Rate 18 Blood Pressure [Right Arm] 147/97 Blood Pressure [Right Arm] 132/73 O2 Sat by Pulse Oximetry 94 O2 Sat by Pulse Oximetry 94 Intake and Output: Intake & Output 08/01/23 08/02/23 08/03/23 08/04/23 23:59 23:59 23:59 23:59 Intake Total 3766 / 3766 454 / 454 Balance 3766 / 3766 454 / 454 Physical Exam Oriented: Normal Eyes: Normal Nose: Normal Throat: Normal Respiratory: Generalized and Diminished Cardiovascular: Normal and Murmur Auscultation: Bowel Sounds: Normal Palpation: Normal Tenderness: Normal Skin: Normal Musculoskeletal: Back:Lumbar Mood Description: Calm Affect: Depressed Speech Pattern: Clear and Appropriate Laboratory and Diagnostics 08/04/23 04:53 08/04/23 04:53 Labs: 08/02/23 23:04 Urine,Clean Catch Urine Culture - Preliminary Laboratory WBC 8.5 X10^3/uL (3.6-10.0) 08/04/23 04:53 RBC 2.56 X10^6/uL (3.5-5.4) L 08/04/23 04:53 Hgb 7.3 g/dL (12.0-16.0) L 08/04/23 04:53 Hct 22.4 % (36.0-47.0) L 08/04/23 04:53 MCV 87.3 fL (80.0-100.0) 08/04/23 04:53 MCH 28.5 pg (27.0-34.0) 08/04/23 04:53 MCHC 32.7 g/dL (33.0-35.0) L 08/04/23 04:53 RDW 16.3 % (11.6-16.5) 08/04/23 04:53 Plt Count 140 X10^3/uL (150.0-450.0) L 08/04/23 04:53 MPV 7.2 fL (7.4-11.0) L 08/04/23 04:53 Neut % (Auto) 60.6 % (42.0-75.0) 08/04/23 04:53 Lymph % (Auto) 23.1 % (21.0-51.0) 08/04/23 04:53 [place] % (Auto) 5.7 % (0.0-13.0) 08/04/23 04:53 Eos % (Auto) 9.8 % (0.9-2.9) H 08/04/23 04:53 Baso % (Auto) 0.8 % (0.2-1.0) 08/04/23 04:53 Neut # (Auto) 5.1 x10^3/uL (2.2-4.8) H 08/04/23 04:53 Lymph # (Auto) 2.0 X10^3/uL (1.3-2.9) 08/04/23 04:53 [place] # (Auto) 0.5 x10^3/uL (0.3-0.8) 08/04/23 04:53 Eos # (Auto) 0.8 x10^3/uL (0.0-0.2) H 08/04/23 04:53 Baso # (Auto) 0.1 X10^3/uL (0.0-0.1) 08/04/23 04:53 Absolute Nucleated RBC 0.0 /100WBC 08/04/23 04:53 Sodium 142 mmol/L (136-145) 08/04/23 04:53 Corrected Sodium TNP 08/04/23 04:53 Potassium 4.0 mmol/L (3.5-5.1) 08/04/23 04:53 Chloride 109 mmol/L (98-107) H 08/04/23 04:53 Carbon Dioxide 21.5 mmol/L (21-32) 08/04/23 04:53 BUN 65 mg/dL (7-18) H 08/04/23 04:53 Creatinine 5.74 mg/dL (0.55-1.02) H 08/04/23 04:53 Est GFR (MDRD) Af Amer 10 (>60) L 08/04/23 04:53 Est GFR (MDRD) Non-Af 8 (>60) L 08/04/23 04:53 Glucose 95 mg/dL (65-99) 08/04/23 04:53 POC Glucose (mg/dL) 85 mg/dL (65-99) 08/04/23 11:31 Calcium 8.4 mg/dL (8.5-10.1) L 08/04/23 04:53 Corrected Calcium 9.2 mg/dL (8.5-10.1) 08/04/23 04:53 Phosphorus Cancelled 08/03/23 05:55 Magnesium Cancelled 08/03/23 05:55 Total Bilirubin 0.20 mg/dL (0.2-1.0) 08/04/23 04:53 AST 7 Units/L (15-37) L 08/04/23 04:53 ALT 9 Units/L (12-78) L 08/04/23 04:53 Alkaline Phosphatase 62 Units/L (46-116) 08/04/23 04:53 Total Protein 6.9 g/dL (6.4-8.2) 08/04/23 04:53 Albumin 3.0 g/dL (3.4-5.0) L 08/04/23 04:53 Globulin 3.9 g/dL (2.5-4.5) 08/04/23 04:53 Albumin/Globulin Ratio 0.8 Ratio (1.1-2.1) L 08/04/23 04:53 Specimen Type Clean catch urine 08/02/23 23:04 Urine Color Pale yellow (YELLOW) 08/02/23 23:04 Urine Appearance Clear (CLEAR) 08/02/23 23:04 Urine pH 6.5 (5.0 - 8.0) 08/02/23 23:04 Ur Specific [place] 1.010 (1.000-1.030) 08/02/23 23:04 Urine Protein 2+ (NEGATIVE) 08/02/23 23:04 Urine Glucose (UA) Negative (NEGATIVE) 08/02/23 23:04 Urine Ketones Negative (NEGATIVE) 08/02/23 23:04 Urine Blood Negative (NEGATIVE) 08/02/23 23:04 Urine Nitrite Negative (NEGATIVE) 08/02/23 23:04 Urine Bilirubin Negative (NEGATIVE) 08/02/23 23:04 Urine Urobilinogen Normal (NORMAL) 08/02/23 23:04 Ur Leukocyte Esterase 1+ (NEGATIVE) 08/02/23 23:04 Urine RBC 0-2 /HPF (0-3) 08/02/23 23:04 Urine WBC 0-2 /HPF (0-5) 08/02/23 23:04 Ur Squamous Epith Cells Rare /HPF (NEGATIVE) 08/02/23 23:04 Urine Bacteria Trace /HPF (NEGATIVE) 08/02/23 23:04 Ur Culture Indicated? Yes/culture set up 08/02/23 23:04 Plan (1) CKD (chronic kidney disease) stage 5, GFR less than 15 ml/min: Status: Chronic (2) Hypertensive heart disease: Status: Acute Qualifiers: Heart failure presence: unspecified whether heart failure present Qualified Code(s): I11.9 - Hypertensive heart disease without heart failure (3) GERD (gastroesophageal reflux disease): Status: Acute Qualifiers: Esophagitis presence: esophagitis presence not specified Qualified Code(s): K21.9 - Gastro-esophageal reflux disease without esophagitis (4) AMEE (acute kidney injury): Status: Acute (5) Anemia: Status: Acute Qualifiers: Anemia type: unspecified type Qualified Code(s): D64.9 - Anemia, unspecified
[2023-08-04 13:40] LABS: HEMATOCRIT 24.6 % (36.0-47.0)
[2023-08-05 01:04] LABS: HEMATOCRIT 22.1 % (36.0-47.0); HEMOGLOBIN 7.1 g/dL (12.0-16.0)
[2023-08-05 05:08] LABS: BASOPHILS # (AUTO) 0.1 X10^3/uL (0.0-0.1); BASOPHILS % (AUTO) 0.7 % (0.2-1.0); EOSINOPHILS % (AUTO) 9.9 % (0.9-2.9); HEMATOCRIT 24.1 % (36.0-47.0); HEMOGLOBIN 7.8 g/dL (12.0-16.0); LYMPHOCYTES # (AUTO) 2.3 X10^3/uL (1.3-2.9); LYMPHOCYTES % (AUTO) 23.5 % (21.0-51.0); MEAN CORPUSCULAR HEMOGLOBIN 28.3 pg (27.0-34.0); MEAN CORPUSCULAR HGB CONC 32.5 g/dL (33.0-35.0); MEAN CORPUSCULAR VOLUME 87.2 fL (80.0-100.0); MEAN PLATELET VOLUME 7.5 fL (7.4-11.0); MONOCYTES # (AUTO) 0.6 x10^3/uL (0.3-0.8); MONOCYTES % (AUTO) 6.4 % (0.0-13.0); NEUTROPHILS # (AUTO) 5.7 x10^3/uL (2.2-4.8); NEUTROPHILS % (AUTO) 59.5 % (42.0-75.0); PLATELET COUNT 159 X10^3/uL (150.0-450.0); RED BLOOD COUNT 2.77 X10^6/uL (3.5-5.4); RED CELL DISTRIBUTION WIDTH 16.4 % (11.6-16.5); WHITE BLOOD COUNT 9.6 X10^3/uL (3.6-10.0)
[2023-08-05 05:26] LABS: ALANINE AMINOTRANSFERASE 11 Units/L (12-78); ALBUMIN 3.2 g/dL (3.4-5.0); ALKALINE PHOSPHATASE 76 Units/L (46-116); ASPARTATE AMINO TRANSFERASE 7 Units/L (15-37); BLOOD UREA NITROGEN 63 mg/dL (7-18); CALCIUM 8.5 mg/dL (8.5-10.1); CARBON DIOXIDE 20.1 mmol/L (21-32); CHLORIDE 108 mmol/L (98-107); COR CA(FOR HYPOALB) 9.1 mg/dL (8.5-10.1); CREATININE 5.82 mg/dL (0.55-1.02); GLUCOSE 102 mg/dL (65-99); POTASSIUM 3.9 mmol/L (3.5-5.1); SODIUM 141 mmol/L (136-145); TOTAL PROTEIN 7.4 g/dL (6.4-8.2); eGFR NON BLACK RACES 8 (>60)
[2023-08-05] MEDS: NS 250 ML IV 250 ML IV ONE ×2 (11:02→11:03)
--- NOTE | 2023-08-05 12:01 | PCM.PROG ---
Progress Note Progress Note for Day of Date of Exam: 08/05/23 Subjective Subjective: Patient seen at bedside, no acute events overnight. She is currently admitted for acute on chronic kidney failure. Her renal function has improved slightly with fluids. Her hemoglobin was 8.0 yesterday afternoon but dropped to 7.1 this morning. She has received 1 unit of PRBC, currently getting 2nd unit. Denies any active bleeding. Denies any nausea, vomiting or abdominal pain. Labs and imaging reviewed: -Hemoglobin 7.8 BUN: 63 creatinine: 5.82 -Urine culture no growth -Anemia panel: normal ferritin, iron. Low TIBC and folate. Plan: Continue transfusion, monitor H&H. Continue gentle hydration. Hold lasix. Hold Farxiga due to worsening renal function. Continue home medications. Ambulate as tolerated. Add folic acid. PT/OT as tolerated. Monitor a.m. labs and imaging. Past Medical Family Social History Allergies: Allergies diphenhydramine [From Benadryl] Allergy (Verified 06/29/23 11:08) Penicillins Allergy (Verified 06/29/23 11:08) Vital Signs and I&O's Vital Signs: Vital Signs Temperature 98.1 F Temperature 97.9 F Pulse Rate [Radial] 68 Pulse Rate [Radial] 68 Respiratory Rate 18 Respiratory Rate 18 Respiratory Rate 18 Respiratory Rate 18 Blood Pressure [Right Arm] 136/69 Blood Pressure [Right Arm] 139/79 O2 Sat by Pulse Oximetry 97 O2 Sat by Pulse Oximetry 99 Intake and Output: Intake & Output 08/02/23 08/03/23 08/04/23 08/05/23 23:59 23:59 23:59 23:59 Intake Total 3906 / 3766 3569 / 3569 1380 / 1380 Balance 3766 / 3766 3569 / 3569 1380 / 1380 Physical Exam Oriented: Normal Eyes: Normal Nose: Normal Throat: Normal Respiratory: Generalized and Diminished Cardiovascular: Normal and Murmur Auscultation: Bowel Sounds: Normal Palpation: Normal Tenderness: Normal Skin: Normal Musculoskeletal: Back:Lumbar Psychiatric: Normal Mood Description: Calm Affect: Depressed Speech Pattern: Clear and Appropriate Laboratory and Diagnostics 08/05/23 03:58 08/05/23 03:58 Labs: 08/02/23 23:04 Urine,Clean Catch Urine Culture - Final Laboratory WBC 9.6 X10^3/uL (3.6-10.0) 08/05/23 03:58 RBC 2.77 X10^6/uL (3.5-5.4) L 08/05/23 03:58 Hgb 7.8 g/dL (12.0-16.0) L 08/05/23 03:58 Hct 24.1 % (36.0-47.0) L 08/05/23 03:58 MCV 87.2 fL (80.0-100.0) 08/05/23 03:58 MCH 28.3 pg (27.0-34.0) 08/05/23 03:58 MCHC 32.5 g/dL (33.0-35.0) L 08/05/23 03:58 RDW 16.4 % (11.6-16.5) 08/05/23 03:58 Plt Count 159 X10^3/uL (150.0-450.0) 08/05/23 03:58 MPV 7.5 fL (7.4-11.0) 08/05/23 03:58 Neut % (Auto) 59.5 % (42.0-75.0) 08/05/23 03:58 Lymph % (Auto) 23.5 % (21.0-51.0) 08/05/23 03:58 [place] % (Auto) 6.4 % (0.0-13.0) 08/05/23 03:58 Eos % (Auto) 9.9 % (0.9-2.9) H 08/05/23 03:58 Baso % (Auto) 0.7 % (0.2-1.0) 08/05/23 03:58 Neut # (Auto) 5.7 x10^3/uL (2.2-4.8) H 08/05/23 03:58 Lymph # (Auto) 2.3 X10^3/uL (1.3-2.9) 08/05/23 03:58 [place] # (Auto) 0.6 x10^3/uL (0.3-0.8) 08/05/23 03:58 Eos # (Auto) 1.0 x10^3/uL (0.0-0.2) H 08/05/23 03:58 Baso # (Auto) 0.1 X10^3/uL (0.0-0.1) 08/05/23 03:58 Absolute Nucleated RBC 0.1 /100WBC 08/05/23 03:58 Sodium 141 mmol/L (136-145) 08/05/23 03:58 Corrected Sodium TNP 08/05/23 03:58 Potassium 3.9 mmol/L (3.5-5.1) 08/05/23 03:58 Chloride 108 mmol/L (98-107) H 08/05/23 03:58 Carbon Dioxide 20.1 mmol/L (21-32) L 08/05/23 03:58 BUN 63 mg/dL (7-18) H 08/05/23 03:58 Creatinine 5.82 mg/dL (0.55-1.02) H 08/05/23 03:58 Est GFR (MDRD) Af Amer 10 (>60) L 08/05/23 03:58 Est GFR (MDRD) Non-Af 8 (>60) L 08/05/23 03:58 Glucose 102 mg/dL (65-99) H 08/05/23 03:58 POC Glucose (mg/dL) 92 mg/dL (65-99) 08/05/23 05:04 Calcium 8.5 mg/dL (8.5-10.1) 08/05/23 03:58 Corrected Calcium 9.1 mg/dL (8.5-10.1) 08/05/23 03:58 Phosphorus Cancelled 08/03/23 05:55 Magnesium Cancelled 08/03/23 05:55 Iron 51 ug/dL (50-175) 08/04/23 13:23 TIBC 192 ug/dL (250-450) L 08/04/23 13:23 Ferritin 140 ng/mL (8-252) 08/04/23 13:23 Total Bilirubin 0.20 mg/dL (0.2-1.0) 08/05/23 03:58 AST 7 Units/L (15-37) L 08/05/23 03:58 ALT 11 Units/L (12-78) L 08/05/23 03:58 Alkaline Phosphatase 76 Units/L (46-116) 08/05/23 03:58 Total Protein 7.4 g/dL (6.4-8.2) 08/05/23 03:58 Albumin 3.2 g/dL (3.4-5.0) L 08/05/23 03:58 Globulin 4.2 g/dL (2.5-4.5) 08/05/23 03:58 Albumin/Globulin Ratio 0.8 Ratio (1.1-2.1) L 08/05/23 03:58 Vitamin B12 551 pg/mL (193-986) 08/04/23 13:23 Folate 7.5 ng/mL (>8.6) L 08/04/23 13:23 Specimen Type Clean catch urine 08/02/23 23:04 Urine Color Pale yellow (YELLOW) 08/02/23 23:04 Urine Appearance Clear (CLEAR) 08/02/23 23:04 Urine pH 6.5 (5.0 - 8.0) 08/02/23 23:04 Ur Specific [place] 1.010 (1.000-1.030) 08/02/23 23:04 Urine Protein 2+ (NEGATIVE) 08/02/23 23:04 Urine Glucose (UA) Negative (NEGATIVE) 08/02/23 23:04 Urine Ketones Negative (NEGATIVE) 08/02/23 23:04 Urine Blood Negative (NEGATIVE) 08/02/23 23:04 Urine Nitrite Negative (NEGATIVE) 08/02/23 23:04 Urine Bilirubin Negative (NEGATIVE) 08/02/23 23:04 Urine Urobilinogen Normal (NORMAL) 08/02/23 23:04 Ur Leukocyte Esterase 1+ (NEGATIVE) 08/02/23 23:04 Urine RBC 0-2 /HPF (0-3) 08/02/23 23:04 Urine WBC 0-2 /HPF (0-5) 08/02/23 23:04 Ur Squamous Epith Cells Rare /HPF (NEGATIVE) 08/02/23 23:04 Urine Bacteria Trace /HPF (NEGATIVE) 08/02/23 23:04 Ur Culture Indicated? Yes/culture set up 08/02/23 23:04 Blood Type B POSITIVE 08/04/23 13:23 Antibody Screen Negative 08/04/23 13:23 Crossmatch See Detail 08/04/23 13:23 Plan (1) Anemia: Status: Acute Qualifiers: Anemia type: unspecified type Qualified Code(s): D64.9 - Anemia, unspecified (2) AMEE (acute kidney injury): Status: Acute (3) CKD (chronic kidney disease) stage 5, GFR less than 15 ml/min: Status: Chronic (4) Hypertensive heart disease: Status: Acute Qualifiers: Heart failure presence: unspecified whether heart failure present Qualified Code(s): I11.9 - Hypertensive heart disease without heart failure (5) GERD (gastroesophageal reflux disease): Status: Acute Qualifiers: Esophagitis presence: esophagitis presence not specified Qualified Code(s): K21.9 - Gastro-esophageal reflux disease without esophagitis
[2023-08-05] MEDS: FOLIC ACID TAB 1 MG PO SCH (12:16)
[2023-08-05] MEDS: NS 1/2 1,000 ML IV 1,000 ML IV ONE (16:37)
[2023-08-05 17:54] LABS: HEMATOCRIT 30.7 % (36.0-47.0)
[2023-08-05 17:58] LABS: HEMOGLOBIN 9.9 g/dL (12.0-16.0)
[2023-08-06] MEDS ORDERED: NS 1/2 1,000 ML IV 1,000 ML IV ONE (01:52)
[2023-08-06] MEDS: TYLENOL 325 MG TAB PO PRN (02:18)
[2023-08-06 05:02] LABS: BASOPHILS % (AUTO) 0.4 % (0.2-1.0); EOSINOPHILS # (AUTO) 0.8 x10^3/uL (0.0-0.2); EOSINOPHILS % (AUTO) 7.2 % (0.9-2.9); HEMOGLOBIN 9.3 g/dL (12.0-16.0); LYMPHOCYTES # (AUTO) 1.6 X10^3/uL (1.3-2.9); LYMPHOCYTES % (AUTO) 14.8 % (21.0-51.0); MEAN CORPUSCULAR HEMOGLOBIN 28.2 pg (27.0-34.0); MEAN CORPUSCULAR HGB CONC 32.2 g/dL (33.0-35.0); MEAN CORPUSCULAR VOLUME 87.7 fL (80.0-100.0); MEAN PLATELET VOLUME 7.4 fL (7.4-11.0); MONOCYTES # (AUTO) 0.7 x10^3/uL (0.3-0.8); MONOCYTES % (AUTO) 5.9 % (0.0-13.0); NEUTROPHILS % (AUTO) 71.7 % (42.0-75.0); PLATELET COUNT 144 X10^3/uL (150.0-450.0); RED CELL DISTRIBUTION WIDTH 16.5 % (11.6-16.5); WHITE BLOOD COUNT 11.1 X10^3/uL (3.6-10.0)
[2023-08-06 05:09] LABS: ALANINE AMINOTRANSFERASE 11 Units/L (12-78); ALKALINE PHOSPHATASE 75 Units/L (46-116); ASPARTATE AMINO TRANSFERASE 8 Units/L (15-37); BLOOD UREA NITROGEN 62 mg/dL (7-18); CALCIUM 8.6 mg/dL (8.5-10.1); CARBON DIOXIDE 20.7 mmol/L (21-32); CHLORIDE 110 mmol/L (98-107); COR CA(FOR HYPOALB) 9.4 mg/dL (8.5-10.1); CREATININE 5.51 mg/dL (0.55-1.02); GLUCOSE 87 mg/dL (65-99); POTASSIUM 4.2 mmol/L (3.5-5.1); SODIUM 142 mmol/L (136-145); TOTAL PROTEIN 7.1 g/dL (6.4-8.2); eGFR NON BLACK RACES 8 (>60)
--- NOTE | 2023-08-06 11:43 | DR.PROGNOT ---
HOSPITAL PROGRESS NOTE Progress Note for Day of: Progress Note Date: 08/06/23 Chief Complaint Chief Complaint: Still complaining of persistent nausea and dry heaves, unable to tolerate her food. Endoscopy was done today and showed only a mild gastritis, repeated biopsies to rule out H. pylori gastritis. White count is slightly elevated 11.1 with a hemoglobin 9.3, BUN 62 and creatinine 5.51. Liver function tests are normal and albumin is 3. Past Medical Family Social History Allergies: Allergies diphenhydramine [From Benadryl] Allergy (Verified 06/29/23 11:08) Penicillins Allergy (Verified 06/29/23 11:08) Vital Signs Vital Signs: Vital Signs Temperature 97.8 F Pulse Rate [Radial] 76 Respiratory Rate 20 Respiratory Rate 20 Blood Pressure [Right Arm] 164/80 O2 Sat by Pulse Oximetry 98 Physical Exam Oriented: Normal Eyes: Normal Nose: Normal Throat: Normal Respiratory: Generalized and Diminished Cardiovascular: Normal and Murmur GI:Auscultation: Normal GI:Palpation: Other (Soft and flat abdomen with mild diffuse upper abdominal tenderness.) GI: Tenderness: Normal Skin: Normal Musculoskeletal: Back:Lumbar Psychiatric: Normal Mood Description: Calm Affect: Depressed Speech Pattern: Clear and Appropriate Laboratory and Diagnostics 08/06/23 04:30 08/06/23 04:30 Labs: 08/02/23 23:04 Urine,Clean Catch Urine Culture - Final Laboratory WBC 11.1 X10^3/uL (3.6-10.0) H 08/06/23 04:30 RBC 3.30 X10^6/uL (3.5-5.4) L 08/06/23 04:30 Hgb 9.3 g/dL (12.0-16.0) L 08/06/23 04:30 Hct 29.0 % (36.0-47.0) L 08/06/23 04:30 MCV 87.7 fL (80.0-100.0) 08/06/23 04:30 MCH 28.2 pg (27.0-34.0) 08/06/23 04:30 MCHC 32.2 g/dL (33.0-35.0) L 08/06/23 04:30 RDW 16.5 % (11.6-16.5) 08/06/23 04:30 Plt Count 144 X10^3/uL (150.0-450.0) L 08/06/23 04:30 MPV 7.4 fL (7.4-11.0) 08/06/23 04:30 Neut % (Auto) 71.7 % (42.0-75.0) 08/06/23 04:30 Lymph % (Auto) 14.8 % (21.0-51.0) L 08/06/23 04:30 [place] % (Auto) 5.9 % (0.0-13.0) 08/06/23 04:30 Eos % (Auto) 7.2 % (0.9-2.9) H 08/06/23 04:30 Baso % (Auto) 0.4 % (0.2-1.0) 08/06/23 04:30 Neut # (Auto) 8.0 x10^3/uL (2.2-4.8) H 08/06/23 04:30 Lymph # (Auto) 1.6 X10^3/uL (1.3-2.9) 08/06/23 04:30 [place] # (Auto) 0.7 x10^3/uL (0.3-0.8) 08/06/23 04:30 Eos # (Auto) 0.8 x10^3/uL (0.0-0.2) H 08/06/23 04:30 Baso # (Auto) 0.0 X10^3/uL (0.0-0.1) 08/06/23 04:30 Absolute Nucleated RBC 0.0 /100WBC 08/06/23 04:30 Sodium 142 mmol/L (136-145) 08/06/23 04:30 Corrected Sodium TNP 08/06/23 04:30 Potassium 4.2 mmol/L (3.5-5.1) 08/06/23 04:30 Chloride 110 mmol/L (98-107) H 08/06/23 04:30 Carbon Dioxide 20.7 mmol/L (21-32) L 08/06/23 04:30 BUN 62 mg/dL (7-18) H 08/06/23 04:30 Creatinine 5.51 mg/dL (0.55-1.02) H 08/06/23 04:30 Est GFR (MDRD) Af Amer 10 (>60) L 08/06/23 04:30 Est GFR (MDRD) Non-Af 8 (>60) L 08/06/23 04:30 Glucose 87 mg/dL (65-99) 08/06/23 04:30 POC Glucose (mg/dL) 87 mg/dL (65-99) 08/05/23 17:20 Calcium 8.6 mg/dL (8.5-10.1) 08/06/23 04:30 Corrected Calcium 9.4 mg/dL (8.5-10.1) 08/06/23 04:30 Phosphorus Cancelled 08/03/23 05:55 Magnesium Cancelled 08/03/23 05:55 Iron 51 ug/dL (50-175) 08/04/23 13:23 TIBC 192 ug/dL (250-450) L 08/04/23 13:23 Ferritin 140 ng/mL (8-252) 08/04/23 13:23 Total Bilirubin 0.30 mg/dL (0.2-1.0) 08/06/23 04:30 AST 8 Units/L (15-37) L 08/06/23 04:30 ALT 11 Units/L (12-78) L 08/06/23 04:30 Alkaline Phosphatase 75 Units/L (46-116) 08/06/23 04:30 Total Protein 7.1 g/dL (6.4-8.2) 08/06/23 04:30 Albumin 3.0 g/dL (3.4-5.0) L 08/06/23 04:30 Globulin 4.1 g/dL (2.5-4.5) 08/06/23 04:30 Albumin/Globulin Ratio 0.7 Ratio (1.1-2.1) L 08/06/23 04:30 Vitamin B12 551 pg/mL (193-986) 08/04/23 13:23 Folate 7.5 ng/mL (>8.6) L 08/04/23 13:23 Specimen Type Clean catch urine 08/02/23 23:04 Urine Color Pale yellow (YELLOW) 08/02/23 23:04 Urine Appearance Clear (CLEAR) 08/02/23 23:04 Urine pH 6.5 (5.0 - 8.0) 08/02/23 23:04 Ur Specific [place] 1.010 (1.000-1.030) 08/02/23 23:04 Urine Protein 2+ (NEGATIVE) 08/02/23 23:04 Urine Glucose (UA) Negative (NEGATIVE) 08/02/23 23:04 Urine Ketones Negative (NEGATIVE) 08/02/23 23:04 Urine Blood Negative (NEGATIVE) 08/02/23 23:04 Urine Nitrite Negative (NEGATIVE) 08/02/23 23:04 Urine Bilirubin Negative (NEGATIVE) 08/02/23 23:04 Urine Urobilinogen Normal (NORMAL) 08/02/23 23:04 Ur Leukocyte Esterase 1+ (NEGATIVE) 08/02/23 23:04 Urine RBC 0-2 /HPF (0-3) 08/02/23 23:04 Urine WBC 0-2 /HPF (0-5) 08/02/23 23:04 Ur Squamous Epith Cells Rare /HPF (NEGATIVE) 08/02/23 23:04 Urine Bacteria Trace /HPF (NEGATIVE) 08/02/23 23:04 Ur Culture Indicated? Yes/culture set up 08/02/23 23:04 Blood Type B POSITIVE 08/04/23 13:23 Antibody Screen Negative 08/04/23 13:23 Crossmatch See Detail 08/04/23 13:23 Assessment and Plan 1: Cyclic vomiting syndrome On IV Protonix, IV fluid with vitamin supplement, Ativan one mg 3 times a day. Scheduled for HIDA scan in the morning. 2: Chronic kidney disease which could be a factor for her persistent nausea and vomiting. 3: Anxiety and depression.
--- NOTE | 2023-08-06 13:47 | RAD ---
EXAMINATION:CHEST, 1 VIEWHISTORY:CONGESTION; .COMPARISON STUDY:08/04/2023TECHNIQUE:A single view of the chest was obtained.FINDINGS:Film is underpenetrated.. Heart size is enlarged. No acute infiltrates. There is no pneumothorax. Hilar and mediastinal structures and bony structures are unremarkable. .IMPRESSION:No acute process in the chest.THIS IS AN ELECTRONICALLY VERIFIED FINAL REPORT08/06/2023 1:44 PM - Electronically signed by Ortiz Dunham MD
[2023-08-06] MEDS: NS 1/2 1,000 ML IV 1,000 ML IV ONE (16:45)
--- NOTE | 2023-08-06 17:14 | PCM.PROG ---
Progress Note Progress Note for Day of Date of Exam: 08/06/23 Subjective Subjective: This is a 58-year-old black female admitted with dehydration, acute on chronic renal failure, hypertension, nonischemic cardiomyopathy, coronary artery disease, congestive heart failure, osteoarthritis, and gastroesophageal reflux disease. The patient is admitted for IV hydration, very gentle due to patients other cardiac illnesses. She had outpatient labs which were abnormal with her creatinine over 6. The patient is not currently on hemodialysis. She has been under the care of Dr. Luz and has not been able to attend her last two office visits. She has had weakness and shortness of breath on exertion. Upon admission, the patient was started on normal saline with improve ment of BUN/Creatinine. Her hgb was down to 7.3 on 08/04/23 and we transfused 2 units PRBC yesterday. Anemia panel obtained: b 12 551, iron 51, ferritin 140, folate 7.5. AM labs: hgb 9.3, wbc 11.1, bun 62/creatinine 5.51. Past Medical Family Social History Allergies: Allergies diphenhydramine [From Benadryl] Allergy (Verified 06/29/23 11:08) Penicillins Allergy (Verified 06/29/23 11:08) Vital Signs and I&O's Vital Signs: Vital Signs Temperature 97.5 F Pulse Rate [Radial] 71 Respiratory Rate 18 Respiratory Rate 20 Blood Pressure [Right Arm] 138/79 O2 Sat by Pulse Oximetry 97 Intake and Output: Intake & Output 08/04/23 08/05/23 08/06/23 08/07/23 11:59 11:59 11:59 11:59 Intake Total 3181 / 3181 4495 / 4495 3649 / 3649 500 / 500 Balance 3181 / 3181 4495 / 4495 3649 / 3649 500 / 500 Physical Exam Oriented: Normal Eyes: Normal Nose: Normal Throat: Normal Respiratory: Generalized and Diminished Cardiovascular: Normal and Murmur Auscultation: Bowel Sounds: Normal Tenderness: Normal Skin: Normal Musculoskeletal: Back:Lumbar Psychiatric: Normal Mood Description: Calm Affect: Depressed Speech Pattern: Clear and Appropriate Laboratory and Diagnostics 08/06/23 04:30 08/06/23 04:30 Labs: 08/02/23 23:04 Urine,Clean Catch Urine Culture - Final Laboratory WBC 11.1 X10^3/uL (3.6-10.0) H 08/06/23 04:30 RBC 3.30 X10^6/uL (3.5-5.4) L 08/06/23 04:30 Hgb 9.3 g/dL (12.0-16.0) L 08/06/23 04:30 Hct 29.0 % (36.0-47.0) L 08/06/23 04:30 MCV 87.7 fL (80.0-100.0) 08/06/23 04:30 MCH 28.2 pg (27.0-34.0) 08/06/23 04:30 MCHC 32.2 g/dL (33.0-35.0) L 08/06/23 04:30 RDW 16.5 % (11.6-16.5) 08/06/23 04:30 Plt Count 144 X10^3/uL (150.0-450.0) L 08/06/23 04:30 MPV 7.4 fL (7.4-11.0) 08/06/23 04:30 Neut % (Auto) 71.7 % (42.0-75.0) 08/06/23 04:30 Lymph % (Auto) 14.8 % (21.0-51.0) L 08/06/23 04:30 Castro % (Auto) 5.9 % (0.0-13.0) 08/06/23 04:30 Eos % (Auto) 7.2 % (0.9-2.9) H 08/06/23 04:30 Baso % (Auto) 0.4 % (0.2-1.0) 08/06/23 04:30 Neut # (Auto) 8.0 x10^3/uL (2.2-4.8) H 08/06/23 04:30 Lymph # (Auto) 1.6 X10^3/uL (1.3-2.9) 08/06/23 04:30 Castro # (Auto) 0.7 x10^3/uL (0.3-0.8) 08/06/23 04:30 Eos # (Auto) 0.8 x10^3/uL (0.0-0.2) H 08/06/23 04:30 Baso # (Auto) 0.0 X10^3/uL (0.0-0.1) 08/06/23 04:30 Absolute Nucleated RBC 0.0 /100WBC 08/06/23 04:30 Sodium 142 mmol/L (136-145) 08/06/23 04:30 Corrected Sodium TNP 08/06/23 04:30 Potassium 4.2 mmol/L (3.5-5.1) 08/06/23 04:30 Chloride 110 mmol/L (98-107) H 08/06/23 04:30 Carbon Dioxide 20.7 mmol/L (21-32) L 08/06/23 04:30 BUN 62 mg/dL (7-18) H 08/06/23 04:30 Creatinine 5.51 mg/dL (0.55-1.02) H 08/06/23 04:30 Est GFR (MDRD) Af Amer 10 (>60) L 08/06/23 04:30 Est GFR (MDRD) Non-Af 8 (>60) L 08/06/23 04:30 Glucose 87 mg/dL (65-99) 08/06/23 04:30 POC Glucose (mg/dL) 87 mg/dL (65-99) 08/05/23 17:20 Calcium 8.6 mg/dL (8.5-10.1) 08/06/23 04:30 Corrected Calcium 9.4 mg/dL (8.5-10.1) 08/06/23 04:30 Phosphorus Cancelled 08/03/23 05:55 Magnesium Cancelled 08/03/23 05:55 Iron 51 ug/dL (50-175) 08/04/23 13:23 TIBC 192 ug/dL (250-450) L 08/04/23 13:23 Ferritin 140 ng/mL (8-252) 08/04/23 13:23 Total Bilirubin 0.30 mg/dL (0.2-1.0) 08/06/23 04:30 AST 8 Units/L (15-37) L 08/06/23 04:30 ALT 11 Units/L (12-78) L 08/06/23 04:30 Alkaline Phosphatase 75 Units/L (46-116) 08/06/23 04:30 Total Protein 7.1 g/dL (6.4-8.2) 08/06/23 04:30 Albumin 3.0 g/dL (3.4-5.0) L 08/06/23 04:30 Globulin 4.1 g/dL (2.5-4.5) 08/06/23 04:30 Albumin/Globulin Ratio 0.7 Ratio (1.1-2.1) L 08/06/23 04:30 Vitamin B12 551 pg/mL (193-986) 08/04/23 13:23 Folate 7.5 ng/mL (>8.6) L 08/04/23 13:23 Specimen Type Clean catch urine 08/02/23 23:04 Urine Color Pale yellow (YELLOW) 08/02/23 23:04 Urine Appearance Clear (CLEAR) 08/02/23 23:04 Urine pH 6.5 (5.0 - 8.0) 08/02/23 23:04 Ur Specific Fence 1.010 (1.000-1.030) 08/02/23 23:04 Urine Protein 2+ (NEGATIVE) 08/02/23 23:04 Urine Glucose (UA) Negative (NEGATIVE) 08/02/23 23:04 Urine Ketones Negative (NEGATIVE) 08/02/23 23:04 Urine Blood Negative (NEGATIVE) 08/02/23 23:04 Urine Nitrite Negative (NEGATIVE) 08/02/23 23:04 Urine Bilirubin Negative (NEGATIVE) 08/02/23 23:04 Urine Urobilinogen Normal (NORMAL) 08/02/23 23:04 Ur Leukocyte Esterase 1+ (NEGATIVE) 08/02/23 23:04 Urine RBC 0-2 /HPF (0-3) 08/02/23 23:04 Urine WBC 0-2 /HPF (0-5) 08/02/23 23:04 Ur Squamous Epith Cells Rare /HPF (NEGATIVE) 08/02/23 23:04 Urine Bacteria Trace /HPF (NEGATIVE) 08/02/23 23:04 Ur Culture Indicated? Yes/culture set up 08/02/23 23:04 Blood Type B POSITIVE 08/04/23 13:23 Antibody Screen Negative 08/04/23 13:23 Crossmatch See Detail 08/04/23 13:23 Plan (1) Anemia: Status: Acute Qualifiers: Anemia type: unspecified type Qualified Code(s): D64.9 - Anemia, unspecified Plan: Plan: Decrease IV fluids, continue home medications, continue to hold farxiga and lasix. (2) AMEE (acute kidney injury): Status: Acute (3) CKD (chronic kidney disease) stage 5, GFR less than 15 ml/min: Status: Chronic (4) Hypertensive heart disease: Status: Acute Qualifiers: Heart failure presence: unspecified whether heart failure present Qualified Code(s): I11.9 - Hypertensive heart disease without heart failure (5) GERD (gastroesophageal reflux disease): Status: Acute Qualifiers: Esophagitis presence: esophagitis presence not specified Qualified Code(s): K21.9 - Gastro-esophageal reflux disease without esophagitis
[2023-08-07 06:03] LABS: BASOPHILS % (AUTO) 0.2 % (0.2-1.0); EOSINOPHILS # (AUTO) 0.7 x10^3/uL (0.0-0.2); EOSINOPHILS % (AUTO) 6.4 % (0.9-2.9); HEMATOCRIT 27.3 % (36.0-47.0); HEMOGLOBIN 8.8 g/dL (12.0-16.0); LYMPHOCYTES # (AUTO) 1.3 X10^3/uL (1.3-2.9); LYMPHOCYTES % (AUTO) 12.1 % (21.0-51.0); MEAN CORPUSCULAR HEMOGLOBIN 27.9 pg (27.0-34.0); MEAN CORPUSCULAR HGB CONC 32.1 g/dL (33.0-35.0); MEAN CORPUSCULAR VOLUME 86.9 fL (80.0-100.0); MEAN PLATELET VOLUME 7.2 fL (7.4-11.0); MONOCYTES # (AUTO) 0.6 x10^3/uL (0.3-0.8); MONOCYTES % (AUTO) 5.6 % (0.0-13.0); NEUTROPHILS # (AUTO) 8.3 x10^3/uL (2.2-4.8); NEUTROPHILS % (AUTO) 75.7 % (42.0-75.0); PLATELET COUNT 130 X10^3/uL (150.0-450.0); RED BLOOD COUNT 3.14 X10^6/uL (3.5-5.4); RED CELL DISTRIBUTION WIDTH 16.6 % (11.6-16.5)
[2023-08-07 06:12] LABS: ALANINE AMINOTRANSFERASE 12 Units/L (12-78); ALKALINE PHOSPHATASE 69 Units/L (46-116); ASPARTATE AMINO TRANSFERASE 8 Units/L (15-37); BLOOD UREA NITROGEN 65 mg/dL (7-18); CALCIUM 8.7 mg/dL (8.5-10.1); CARBON DIOXIDE 19.8 mmol/L (21-32); CHLORIDE 109 mmol/L (98-107); COR CA(FOR HYPOALB) 9.5 mg/dL (8.5-10.1); CREATININE 5.58 mg/dL (0.55-1.02); GLUCOSE 90 mg/dL (65-99); POTASSIUM 3.9 mmol/L (3.5-5.1); SODIUM 142 mmol/L (136-145); TOTAL PROTEIN 6.8 g/dL (6.4-8.2); eGFR NON BLACK RACES 8 (>60)
[2023-08-07 10:13] VITALS: TEMP 98.4
[2023-08-07] MEDS ORDERED: NS 1/2 1,000 ML IV 1,000 ML IV ONE (11:40)
[2023-08-07 12:15] VITALS: BP 142/87; PULSE 71; RESP 18; O2SAT 97
== END 2023-08-07 13:40 | disposition home or self-care (01) | DRG 683 ==
LOC: MED/SURG
PROVIDERS: ADMIT Internal Medicine; ATTEND Internal Medicine
DX: K21.9 Gastro-esophageal reflux disease without esophagitis; R53.1 Weakness; I25.10 Atherosclerotic heart disease of native coronary artery without angina pectoris; N17.8 Other acute kidney failure; E86.0 Dehydration; R06.02 Shortness of breath; N18.5 Chronic kidney disease, stage 5; I12.0 Hypertensive chronic kidney disease with stage 5 chronic kidney disease or end stage renal disease; D64.89 Other specified anemias